=== PATIENT | male | born 1965 | race African-American/Black ===

== ENCOUNTER 2017-12-29 10:49 | Inpatient (IN) | payer OTHER ==
[2017-12-29 12:00] VITALS: BMI 20.7
--- NOTE | 2017-12-29 12:51 | HP ---
<Ning Choi - Last Filed: 12/29/17 14:17> CIWA Score - CIWA Score Nausea/Vomitin Muscle Tremors: 3 Anxiety: 3 Agitation: 0-Normal Activity Paroxysmal Sweats: 3 Orientation: 0-Oriented Tacttile Disturbances: 0-None Auditory Disturbances: 0-None Visual Disturbances: 0-None Headache: 0-None Present CIWA-Ar Total Score: 12 Admission [facility] - HPI Chief Complaint: Patient presents for ETOH withdrawal symptoms. Allergies/Adverse Reactions: Allergies Allergy/AdvReac Type Severity Reaction Status Date / Time fish derived Allergy Severe Swelling Verified 12/29/17 16:26 shellfish derived Allergy Severe Swelling Verified 12/29/17 16:26 No Known Drug Allergies Allergy Verified 12/29/17 11:51 seafood Allergy Severe Swelling Uncoded 12/29/17 11:51 History of Present Illness: Patient presents for detox of ETOH and nicotine dependence. Has attempted detox before over at [facility] in 2016. Last drink on 12/28/17 at 9 am. Last dose of smoked cocaine 12/27/17. Reports he has developed tremors related to his substance use. Has PMHX: of HTN and HIV+ . Reports that he in non-complaint with HIV medication. Denies suicidal or homicidal ideation or suicide attempts. Exam Limitations: No Limitations - Ebola screening Have you traveled outside of the country in the last 21 days: No Have you had contact with anyone from an Ebola affected area: No Have you been sick,other than usual withdrawal symptoms: No Do you have a fever: No - Review of Systems Constitutional: Changes in sleep (Patient reports difficulty falling asleep.), Unintentional Wgt. Loss (Patient lost 23 pounds in 2 months unintentionally.) EENT: reports: No Symptoms Reported Respiratory: reports: No Symptoms reported Cardiac: reports: No Symptoms Reported GI: reports: Poor Appetite, Poor Fluid Intake (Patient does not have adequate intake of food or fluids due to poor appetite) : reports: Burning Musculoskeletal: reports: No Symptoms Reported Integumentary: reports: No Symptoms Reported Neuro: reports: Tremors Endocrine: reports: Excessive Sweating, Unexplained Weight Loss Hematology: reports: No Symptoms Reported Psychiatric: reports: Anxious, Depressed Other Systems: Reviewed and Negative Patient History - Patient Medical History Hx Anemia: No Hx Asthma: No Hx Chronic Obstructive Pulmonary Disease (COPD): No Hx Cancer: No Hx Cardiac Disorders: No Hx Congestive Heart Failure: No Hx Hypertension: Yes Hx Hypercholesterolemia: No Hx Pacemaker: No HX Cerebrovascular Accident: No Hx Seizures: No Hx Dementia: No Hx Diabetes: No Hx Gastrointestinal Disorders: No Hx Liver Disease: No Hx Genitourinary Disorders: No Hx Sexually Transmitted Disorders: No Hx Renal Disease (ESRD): No Hx Thyroid Disease: No Hx Human Immunodeficiency Virus (HIV): Yes (since 1994. Atripla qd.) Hx Hepatitis C: No Hx Depression: Yes Hx Suicide Attempt: No (No suicidal ideation or attempts of suicide) Hx Bipolar Disorder: No Hx Schizophrenia: No - Patient Surgical History Past Surgical History: No Hx Neurologic Surgery: No Hx Cataract Extraction: No Hx Cardiac Surgery: No Hx Lung Surgery: No Hx Breast Surgery: No Hx Breast Biopsy: No Hx Abdominal Surgery: No Hx Appendectomy: No Hx Cholecystectomy: No Hx Genitourinary Surgery: No Hx Section: No Hx Orthopedic Surgery: No Anesthesia Reaction: No - PPD History Previous Implant?: Yes Documented Results: Positive w/o proof PPD to be Administered?: No - Reproductive History Patient is a Female of Child Bearing Age (11 -55 yrs old): No - Smoking Cessation Smoking history: Current every day smoker Have you smoked in the past 12 months: Yes Aproximately how many cigarettes per day: 10 Hx Chewing Tobacco Use: No Initiated information on smoking cessation: Yes 'Breaking Loose' booklet given: 12/29/17 - Substance & Tx. History Substance Use Type: Cocaine, Marijuana Hx Substance Use Treatment: Yes - Substances Abused Crack Route: Smoking Frequency: Daily Amount used: $50 Age of first use: 22 Date of Last Use: 12/27/17 Alcohol-vodka Route: Oral Frequency: Daily Amount used: 1 qt. Age of first use: 21 Date of Last Use: 12/28/17 Marijuana Route: Smoking Frequency: Daily Amount used: $5 Age of first use: 22 Date of Last Use: 12/27/17 crystal meth Route: Smoking Frequency: 1-2 times per week Amount used: $20 Age of first use: 52 Date of Last Use: 12/26/17 Family Disease History - Family Disease History Family History: Denies Admission Physical Exam [facility] - Vital Signs Vital Signs: Vital Signs - 24 hr 12/29/17 11:55 Temperature 97.4 F L Pulse Rate 80 Respiratory 20 Rate Blood Pressure 107/63 - Physical General Appearance: Yes: Appropriately Dressed, Mild Distress, Cachetic, Sweating HEENTM: Yes: EOMI, Hearing grossly Normal, Normal ENT Inspection, ROBERT Respiratory: Yes: Lungs Clear, Normal Breath Sounds, No Respiratory Distress, No Accessory Muscle Use Neck: Yes: No masses,lesions,Nodules, Supple Breast: Yes: Breast Exam Deferred Cardiology: Yes: Regular Rhythm, Regular Rate Abdominal: Yes: Normal Bowel Sounds, Non Tender, Flat Genitourinary: Yes: Burning (patient currently on Cipro for UTI) Back: Yes: Normal Inspection Musculoskeletal: Yes: full range of Motion, Gait Steady, Pelvis Stable Extremities: Yes: Normal Capillary Refill, Normal Inspection, Normal Range of Motion, Non-Tender Neurological: Yes: Within Normal Limits Integumentary: Yes: Warm, Moist Lymphatic: Yes: Within Normal Limits - Diagnostic (1) Alcohol dependence with uncomplicated withdrawal Current Visit: Yes Status: Acute (2) Weight loss Current Visit: Yes Status: Acute (3) Depressed affect Current Visit: Yes Status: Acute (4) Difficulty sleeping Current Visit: Yes Status: Acute (5) Cocaine dependence Current Visit: Yes Status: Acute QualifierTitle: Substance use status: uncomplicated Qualified Code(s): F14.20 - Cocaine dependence, uncomplicated (6) Human immunodeficiency virus infection Current Visit: Yes Status: Chronic Cleared for Admission [facility] - Detox or Rehab [facility] Level of Care: Medically Managed Detox Regimen/Protocol: Librium [facility] Breath Alcohol Content Breath Alcohol Content: 0 Urine Drug Screen - Results Drug Screen Negative: No Urine Drug Screen Results: THC-Marijuana, ARISTEO-Cocaine <Rose Roman - Last Filed: 12/31/17 15:02> Admission Physical Exam [facility] - Vital Signs Vital Signs: Vital Signs - 24 hr 12/30/17 12/30/17 12/31/17 18:06 23:19 08:24 Temperature 98.2 F 98.2 F 97.7 F Pulse Rate 79 76 74 Respiratory 18 17 17 Rate Blood Pressure 147/59 84/53 90/53 12/31/17 09:57 Temperature 98.2 F Pulse Rate 76 Respiratory 18 Rate Blood Pressure 115/70
[2017-12-29] MEDS ORDERED: P-EPHED 60MG/TRIPROLIDI 2.5MG TABLET PO PRN (14:06)
[2017-12-29] MEDS ORDERED: MAG HYDROX/AL HYDROX/SIMETH 30 ML UNIT-DOSE CUP PO PRN (14:06)
[2017-12-29] MEDS ORDERED: chlordiazePOXIDE HCL 25 MG CAPSULE PO PRN (14:06)
[2017-12-29] MEDS ORDERED: guaiFENesin/D-METHORPHAN HB 10 ML UNIT-DOSE CUPS PO PRN (14:06)
[2017-12-29] MEDS ORDERED: IBUPROFEN 400 MG TABLET (FP) PO PRN (14:06)
[2017-12-29] MEDS ORDERED: MAGNESIUM CITRATE 300 ML BOTTLE PO PRN (14:06)
[2017-12-29] MEDS ORDERED: ACETAMINOPHEN 325 MG TABLET (FP) PO PRN (14:06)
[2017-12-29] MEDS ORDERED: NICOTINE POLACRILEX 2 MG GUM BUC PRN (14:06)
[2017-12-29] MEDS ORDERED: LOPERAMIDE HCL 2 MG CAPSULE PO PRN (14:06)
[2017-12-29] MEDS ORDERED: MAGNESIUM HYDROX 2400MG/30ML ORAL SUSPENSION 30 ML CUP PO PRN (14:06)
[2017-12-29] MEDS ORDERED: chlordiazePOXIDE HCL 25 MG CAPSULE PO ONE (14:40)
--- NOTE | 2017-12-29 16:42 | CONSULT ---
[facility] Psychiatric Consult - Data Date of interview: 12/29/17 Admission source: [facility] Identifying data: Pt. is a 52 year old single male, without kids, unemployed, and receiving SSI. This is patient's first admission to detox but has been admitted to rehab at [facility] in the past. Pt. admitted to for Substance Abuse History: Following information confirmed with Mr. Mccord: Smoking Cessation. Smoking history: Current every day smoker. Have you smoked in the past 12 months: Yes. Aproximately how many cigarettes per day: 10. Hx Chewing Tobacco Use: No. Initiated information on smoking cessation: Yes. ' Breaking Loose' booklet given: 12/29/17. - Substance & Tx. History. Substance Use Type: Cocaine, Marijuana. Hx Substance Use Treatment: Yes. - Substances Abused. Crack. Route: Smoking. Frequency: Daily. Amount used: $50. Age of first use: 22. Date of Last Use: 12/27/17. Alcohol-vodka. Route: Oral. Frequency: Daily. Amount used: 1 qt. Age of first use: 21. Date of Last Use : 12/28/17. Marijuana. Route: Smoking. Frequency: Daily. Amount used: $ 5. Age of first use: 22. Date of Last Use: 12/27/17. crystal meth. Route : Smoking. Frequency: 1-2 times per week. Amount used: $20. Age of first use : 52. Date of Last Use: 12/26/17 Medical History: hypertension, HIV Psychiatric History: Patient's first encounter with a psychiatrist was at the age of 15 after endorsing suicidal ideation. Since then, patient reports multiple psychiatric hospitalizations. States he was most recently hospitalized at [facility] last month. Diagnosis of MDD. States he is prescribed Seroquel 100mg qhs +Mirtzapine 45 qhs. Reports compliance to medication regime. Pt. reports three suicide attempt. 3 years ago patient cut wrist (no medical attention needed), 4 years ago patient attempted to hang self in [facility] but states the branch broke, and approximately 9 years ago patient overdosed on medications which resulted in patient needing medical attention. Pt. currently denies suicidal and homicidal ideation. Physical/Sexual Abuse/Trauma History: denies. Mental Status Exam - Mental Status Exam Alert and Oriented to: Time, Place, Person Cognitive Function: Good Patient Appearance: Unkempt Mood: Hopeful, Euthymic Affect: Appropriate Patient Behavior: Cooperative Speech Pattern: Clear, Appropriate Voice Loudness: Normal Thought Process: Goal Oriented Thought Disorder: Not Present Hallucinations: Denies Suicidal Ideation: Denies Homicidal Ideation: Denies Insight/Judgement: Poor Sleep: Poorly Appetite: Fair Muscle strength/Tone: Normal Gait/Station: Normal Psychiatric Findings - Problem List ([place] 1, 2,3) (1) Alcohol dependence with uncomplicated withdrawal Current Visit: Yes Status: Acute (2) Cocaine dependence Current Visit: Yes Status: Acute Qualifiers: Substance use status: uncomplicated Qualified Code(s): F14.20 - Cocaine dependence, uncomplicated (3) MDD (major depressive disorder) Current Visit: Yes Status: Chronic Comment: Historical diagnosis. (4) Insomnia Current Visit: Yes Status: Acute - Initial Treatment Plan Initial Treatment Plan: Psychoeducation provided. Detoxification provided. Seroquel 100mg qhs +mirtzapine 15mg qhs (reduce dosage). Benefits and side effects discussed. Verbal consent given. Will continue to monitor.
[2017-12-29] MEDS: MEGESTROL ACETATE 400 MG/10 ML UNIT DOSE CUP PO SCH (17:58)
[2017-12-29] MEDS: CIPROFLOXACIN 250 MG TABLET (RESTRICTED TO ID) PO SCH ×2 (17:58→23:17)
[2017-12-29] MEDS: chlordiazePOXIDE HCL 25 MG CAPSULE PO SCH ×2 (17:58→23:16)
[2017-12-29] MEDS: QUEtiapine FUMARATE 100 MG TABLET (FP) PO SCH (23:16)
[2017-12-29] MEDS: MIRTAZAPINE 15 MG TABLET (FP) PO SCH (23:16)
[2017-12-29] MEDS: THIAMINE HCL 100 MG TABLET (FP) PO SCH (23:16)
[2017-12-30] MEDS: chlordiazePOXIDE HCL 25 MG CAPSULE PO SCH ×4 (05:49→22:54)
[2017-12-30] MEDS: MEGESTROL ACETATE 400 MG/10 ML UNIT DOSE CUP PO SCH ×2 (07:05→18:15)
[2017-12-30 10:00] LABS: HEMATOCRIT 37.5 % (35.4-49); HEMOGLOBIN 12.5 GM/dL (11.7-16.9); MCHC 33.2 g/dl (32.0-35.9); MEAN CELL VOLUME 90.4 fl (80-96); MEAN PLT VOLUME 10.3 fl (7.5-11.1); PLATELET COUNT 348 K/MM3 (134-434); RBC 4.15 M/mm3 (4.00-5.60); RDW 14.2 % (11.9-15.9); WHITE BLOOD COUNT 4.8 K/mm3 (4.0-10.0)
[2017-12-30] MEDS: CIPROFLOXACIN 250 MG TABLET (RESTRICTED TO ID) PO SCH ×2 (10:23→22:54)
[2017-12-30] MEDS: PRENATAL VITAMINS W/ FOLIC ACID TABLET (FP) PO SCH (10:23)
[2017-12-30] MEDS: NICOTINE 14 MG/24 HOURS TOPICAL PATCH TD SCH (10:23)
[2017-12-30 10:24] LABS: URINE APPEARANCE TURBID; URINE BILIRUBIN NEGATIVE (NEGATIVE); URINE COLOR AMBER; URINE GLUCOSE (UA) NEGATIVE (NEGATIVE); URINE KETONE 1+ (NEGATIVE); URINE LEUK ESTERASE NEGATIVE (NEGATIVE); URINE NITRITE NEGATIVE (NEGATIVE)
[2017-12-30 10:25] LABS: URINE PROTEIN 1+ (NEGATIVE)
[2017-12-30 10:27] LABS: CHLORIDE 104 mmol/L (98-107); POTASSIUM 3.6 mmol/L (3.5-5.1); SODIUM 139 mmol/L (136-145)
[2017-12-30 10:34] LABS: ALBUMIN 3.5 g/dl (3.4-5.0); ALK PHOS 63 U/L (45-117); ANION GAP 7 (8-16); BILIRUBIN,TOTAL 0.9 mg/dL (0.2-1.0); BLOOD UREA NITROGEN 15 mg/dL (7-18); CALCIUM 8.9 mg/dL (8.5-10.1); CO2 28 mmol/L (21-32); CREATININE 1.3 mg/dL (0.7-1.3); GLUCOSE,RANDOM 59 mg/dL (74-106); SGOT/AST 22 U/L (15-37); SGPT/ALT 14 U/L (12-78); TOT PROT 7.4 g/dl (6.4-8.2)
[2017-12-30 10:49] LABS: EPI CELLS RARE /HPF (FEW); URINE BACTERIA FEW /hpf (NONE SEEN); URINE HYALINE CAST 2 /lpf; URINE MUCUS FEW
[2017-12-30] MEDS: amLODIPine BESYLATE 10 MG TABLET (FP) PO SCH (12:38)
--- NOTE | 2017-12-30 14:49 | PN ---
[facility] CIWA - CIWA Score Nausea/Vomitin Muscle Tremors: 3 Anxiety: 3 Agitation: 3 Paroxysmal Sweats: 1-Minimal Palms Moist Orientation: 0-Oriented Tacttile Disturbances: 1-Very Mild Itch/Numbness Auditory Disturbances: 1-Very Mild Visual Disturbances: 0-None Headache: 2-Mild CIWA-Ar Total Score: 17 BHS Progress Note (SOAP) Subjective: ALERT,IRRITABLE,ANXIOUS,INTERRUPTED SLEEP,TREMOR Objective: 12/30/17 14:46 Vital Signs Temperature 98.1 F 12/30/17 14:00 Pulse Rate 79 12/30/17 14:00 Respiratory Rate 20 12/30/17 14:00 Blood Pressure 117/68 12/30/17 14:00 O2 Sat by Pulse Oximetry (%) EKG NSR,INVERTED T IN V3 TO V6 PROLONG QT 438/462 NO CHEST PAIN,NO SOB,NO DIZZINESS Laboratory Last Values WBC 4.8 K/mm3 (4.0-10.0) 12/30/17 06:00 RBC 4.15 M/mm3 (4.00-5.60) 12/30/17 06:00 Hgb 12.5 GM/dL (11.7-16.9) D 12/30/17 06:00 Hct 37.5 % (35.4-49) 12/30/17 06:00 MCV 90.4 fl (80-96) 12/30/17 06:00 MCH 30.0 pg (25.7-33.7) 12/30/17 06:00 MCHC 33.2 g/dl (32.0-35.9) 12/30/17 06:00 RDW 14.2 % (11.9-15.9) 12/30/17 06:00 Plt Count 348 K/MM3 (134-434) D 12/30/17 06:00 MPV 10.3 fl (7.5-11.1) D 12/30/17 06:00 Sodium 139 mmol/L (136-145) 12/30/17 06:00 Potassium 3.6 mmol/L (3.5-5.1) 12/30/17 06:00 Chloride 104 mmol/L (98-107) 12/30/17 06:00 Carbon Dioxide 28 mmol/L (21-32) 12/30/17 06:00 Anion Gap 7 (8-16) L 12/30/17 06:00 BUN 15 mg/dL (7-18) D 12/30/17 06:00 Creatinine 1.3 mg/dL (0.7-1.3) 12/30/17 06:00 Creat Clearance w eGFR 57.75 (>60) 12/30/17 06:00 Random Glucose 59 mg/dL (74-106) L D 12/30/17 06:00 Calcium 8.9 mg/dL (8.5-10.1) 12/30/17 06:00 Total Bilirubin 0.9 mg/dL (0.2-1.0) D 12/30/17 06:00 AST 22 U/L (15-37) D 12/30/17 06:00 ALT 14 U/L (12-78) D 12/30/17 06:00 Alkaline Phosphatase 63 U/L (45-117) 12/30/17 06:00 Total Protein 7.4 g/dl (6.4-8.2) 12/30/17 06:00 Albumin 3.5 g/dl (3.4-5.0) 12/30/17 06:00 Urine Color Jaida 12/30/17 08:50 Urine Appearance Turbid 12/30/17 08:50 Urine pH 5.0 (5.0-8.0) D 12/30/17 08:50 Ur Specific [place] 1.031 (1.001-1.035) 12/30/17 08:50 Urine Protein 1+ (NEGATIVE) H 12/30/17 08:50 Urine Glucose (UA) Negative (NEGATIVE) 12/30/17 08:50 Urine Ketones 1+ (NEGATIVE) H 12/30/17 08:50 Urine Blood Negative (NEGATIVE) 12/30/17 08:50 Urine Nitrite Negative (NEGATIVE) 12/30/17 08:50 Urine Bilirubin Negative (NEGATIVE) 12/30/17 08:50 Urine Urobilinogen 2.0 mg/dL (0.2-1.0) 12/30/17 08:50 Ur Leukocyte Esterase Negative (NEGATIVE) 12/30/17 08:50 Urine WBC (Auto) 4 /hpf (3-5) 12/30/17 08:50 Urine RBC (Auto) 1 /hpf (0-3) 12/30/17 08:50 Ur Epithelial Cells Rare /HPF (FEW) 12/30/17 08:50 Urine Bacteria Few /hpf (NONE SEEN) 12/30/17 08:50 Hyaline Casts 2 /lpf 12/30/17 08:50 Urine Mucus Few 12/30/17 08:50 RPR Titer Nonreactive (NONREACTIVE) 12/30/17 06:00 Assessment: 12/30/17 14:48 WITHDRAWAL SYMPTOM Plan: CONTINUE DETOX,BGM IN AM
--- NOTE | 2017-12-30 18:46 | EKG ---
Test Reason : Blood Pressure : / mmHG Vent. Rate : 067 BPM Atrial Rate : 067 BPM P-R Int : 154 ms QRS Dur : 082 ms QT Int : 438 ms P-R-T Axes : 063 077 028 degrees QTc Int : 462 ms NORMAL SINUS RHYTHM T WAVE ABNORMALITY, CONSIDER ANTERIOR ISCHEMIA PROLONGED QT ABNORMAL ECG NO PREVIOUS ECGS AVAILABLE Confirmed by ANDREW HOFFMAN MD ([id number]) on 12/30/2017 6:46:20 PM Referred By: Confirmed By:ANDREW HOFFMAN MD
[2017-12-30] MEDS: THIAMINE HCL 100 MG TABLET (FP) PO SCH (22:54)
[2017-12-30] MEDS: MIRTAZAPINE 15 MG TABLET (FP) PO SCH (22:54)
[2017-12-30] MEDS: QUEtiapine FUMARATE 100 MG TABLET (FP) PO SCH (22:54)
[2017-12-31] MEDS: MEGESTROL ACETATE 400 MG/10 ML UNIT DOSE CUP PO SCH ×2 (06:46→17:04)
[2017-12-31] MEDS: chlordiazePOXIDE HCL 25 MG CAPSULE PO SCH ×2 (06:46→10:18)
[2017-12-31] MEDS: NICOTINE 14 MG/24 HOURS TOPICAL PATCH TD SCH (10:17)
[2017-12-31] MEDS: PRENATAL VITAMINS W/ FOLIC ACID TABLET (FP) PO SCH (10:17)
[2017-12-31] MEDS: amLODIPine BESYLATE 10 MG TABLET (FP) PO SCH (10:17)
--- NOTE | 2017-12-31 15:17 | PN ---
[facility] CIWA - CIWA Score Nausea/Vomitin-Mild Nausea/No Vomiting Muscle Tremors: 4-Moderate,w/Arms Extend Anxiety: 4-Mod. Anxious/Guarded Agitation: 3 Paroxysmal Sweats: 1-Minimal Palms Moist Orientation: 0-Oriented Tacttile Disturbances: 1-Very Mild Itch/Numbness Auditory Disturbances: 0-None Visual Disturbances: 0-None Headache: 0-None Present CIWA-Ar Total Score: 14 BHS Progress Note (SOAP) Subjective: sweat tremor restlessness anxiety irritable mild gi distress Objective: 12/31/17 15:16 Vital Signs Temperature 98.8 F 12/31/17 15:11 Pulse Rate 85 12/31/17 15:11 Respiratory Rate 16 12/31/17 15:11 Blood Pressure 107/60 12/31/17 15:11 O2 Sat by Pulse Oximetry (%) Laboratory Last Values WBC 4.8 K/mm3 (4.0-10.0) 12/30/17 06:00 RBC 4.15 M/mm3 (4.00-5.60) 12/30/17 06:00 Hgb 12.5 GM/dL (11.7-16.9) D 12/30/17 06:00 Hct 37.5 % (35.4-49) 12/30/17 06:00 MCV 90.4 fl (80-96) 12/30/17 06:00 MCH 30.0 pg (25.7-33.7) 12/30/17 06:00 MCHC 33.2 g/dl (32.0-35.9) 12/30/17 06:00 RDW 14.2 % (11.9-15.9) 12/30/17 06:00 Plt Count 348 K/MM3 (134-434) D 12/30/17 06:00 MPV 10.3 fl (7.5-11.1) D 12/30/17 06:00 Sodium 139 mmol/L (136-145) 12/30/17 06:00 Potassium 3.6 mmol/L (3.5-5.1) 12/30/17 06:00 Chloride 104 mmol/L (98-107) 12/30/17 06:00 Carbon Dioxide 28 mmol/L (21-32) 12/30/17 06:00 Anion Gap 7 (8-16) L 12/30/17 06:00 BUN 15 mg/dL (7-18) D 12/30/17 06:00 Creatinine 1.3 mg/dL (0.7-1.3) 12/30/17 06:00 Creat Clearance w eGFR 57.75 (>60) 12/30/17 06:00 POC Glucometer 96 UNITS (80-120) 12/31/17 07:58 Random Glucose 59 mg/dL (74-106) L D 12/30/17 06:00 Calcium 8.9 mg/dL (8.5-10.1) 12/30/17 06:00 Total Bilirubin 0.9 mg/dL (0.2-1.0) D 12/30/17 06:00 AST 22 U/L (15-37) D 12/30/17 06:00 ALT 14 U/L (12-78) D 12/30/17 06:00 Alkaline Phosphatase 63 U/L (45-117) 12/30/17 06:00 Total Protein 7.4 g/dl (6.4-8.2) 12/30/17 06:00 Albumin 3.5 g/dl (3.4-5.0) 12/30/17 06:00 Urine Color Jaida 12/30/17 08:50 Urine Appearance Turbid 12/30/17 08:50 Urine pH 5.0 (5.0-8.0) D 12/30/17 08:50 Ur Specific [place] 1.031 (1.001-1.035) 12/30/17 08:50 Urine Protein 1+ (NEGATIVE) H 12/30/17 08:50 Urine Glucose (UA) Negative (NEGATIVE) 12/30/17 08:50 Urine Ketones 1+ (NEGATIVE) H 12/30/17 08:50 Urine Blood Negative (NEGATIVE) 12/30/17 08:50 Urine Nitrite Negative (NEGATIVE) 12/30/17 08:50 Urine Bilirubin Negative (NEGATIVE) 12/30/17 08:50 Urine Urobilinogen 2.0 mg/dL (0.2-1.0) 12/30/17 08:50 Ur Leukocyte Esterase Negative (NEGATIVE) 12/30/17 08:50 Urine WBC (Auto) 4 /hpf (3-5) 12/30/17 08:50 Urine RBC (Auto) 1 /hpf (0-3) 12/30/17 08:50 Ur Epithelial Cells Rare /HPF (FEW) 12/30/17 08:50 Urine Bacteria Few /hpf (NONE SEEN) 12/30/17 08:50 Hyaline Casts 2 /lpf 12/30/17 08:50 Urine Mucus Few 12/30/17 08:50 RPR Titer Nonreactive (NONREACTIVE) 12/30/17 06:00 Hep C Ab Diagnostic <0.1 s/co ratio (0.0-0.9) 12/30/17 06:00 lab noted Assessment: 12/31/17 15:17 withdrawal sx Plan: continue detox
[2017-12-31] MEDS: chlordiazePOXIDE 5 MG CAPSULE PO SCH ×2 (17:04→22:12)
[2017-12-31] MEDS: MIRTAZAPINE 15 MG TABLET (FP) PO SCH (22:13)
[2017-12-31] MEDS: THIAMINE HCL 100 MG TABLET (FP) PO SCH (22:13)
[2017-12-31] MEDS: QUEtiapine FUMARATE 100 MG TABLET (FP) PO SCH (22:13)
[2018-01-01] MEDS: chlordiazePOXIDE 5 MG CAPSULE PO SCH ×2 (05:51→10:20)
[2018-01-01] MEDS: MEGESTROL ACETATE 400 MG/10 ML UNIT DOSE CUP PO SCH ×2 (07:51→18:45)
[2018-01-01] MEDS: NICOTINE 14 MG/24 HOURS TOPICAL PATCH TD SCH (10:20)
[2018-01-01] MEDS: amLODIPine BESYLATE 10 MG TABLET (FP) PO SCH (10:20)
[2018-01-01] MEDS: PRENATAL VITAMINS W/ FOLIC ACID TABLET (FP) PO SCH (10:20)
--- NOTE | 2018-01-01 11:04 | PN ---
BHS Progress Note (SOAP) Subjective: patient is alert oriented x 3 steady gait mild sweat no tremor Objective: 01/01/18 11:03 Vital Signs Temperature 97.9 F 01/01/18 07:06 Pulse Rate 71 01/01/18 07:06 Respiratory Rate 19 01/01/18 07:06 Blood Pressure 107/67 01/01/18 07:06 O2 Sat by Pulse Oximetry (%) Laboratory Last Values WBC 4.8 K/mm3 (4.0-10.0) 12/30/17 06:00 RBC 4.15 M/mm3 (4.00-5.60) 12/30/17 06:00 Hgb 12.5 GM/dL (11.7-16.9) D 12/30/17 06:00 Hct 37.5 % (35.4-49) 12/30/17 06:00 MCV 90.4 fl (80-96) 12/30/17 06:00 MCH 30.0 pg (25.7-33.7) 12/30/17 06:00 MCHC 33.2 g/dl (32.0-35.9) 12/30/17 06:00 RDW 14.2 % (11.9-15.9) 12/30/17 06:00 Plt Count 348 K/MM3 (134-434) D 12/30/17 06:00 MPV 10.3 fl (7.5-11.1) D 12/30/17 06:00 Sodium 139 mmol/L (136-145) 12/30/17 06:00 Potassium 3.6 mmol/L (3.5-5.1) 12/30/17 06:00 Chloride 104 mmol/L (98-107) 12/30/17 06:00 Carbon Dioxide 28 mmol/L (21-32) 12/30/17 06:00 Anion Gap 7 (8-16) L 12/30/17 06:00 BUN 15 mg/dL (7-18) D 12/30/17 06:00 Creatinine 1.3 mg/dL (0.7-1.3) 12/30/17 06:00 Creat Clearance w eGFR 57.75 (>60) 12/30/17 06:00 POC Glucometer 96 UNITS (80-120) 12/31/17 07:58 Random Glucose 59 mg/dL (74-106) L D 12/30/17 06:00 Calcium 8.9 mg/dL (8.5-10.1) 12/30/17 06:00 Total Bilirubin 0.9 mg/dL (0.2-1.0) D 12/30/17 06:00 AST 22 U/L (15-37) D 12/30/17 06:00 ALT 14 U/L (12-78) D 12/30/17 06:00 Alkaline Phosphatase 63 U/L (45-117) 12/30/17 06:00 Total Protein 7.4 g/dl (6.4-8.2) 12/30/17 06:00 Albumin 3.5 g/dl (3.4-5.0) 12/30/17 06:00 Urine Color Jaida 12/30/17 08:50 Urine Appearance Turbid 12/30/17 08:50 Urine pH 5.0 (5.0-8.0) D 12/30/17 08:50 Ur Specific [place] 1.031 (1.001-1.035) 12/30/17 08:50 Urine Protein 1+ (NEGATIVE) H 12/30/17 08:50 Urine Glucose (UA) Negative (NEGATIVE) 12/30/17 08:50 Urine Ketones 1+ (NEGATIVE) H 12/30/17 08:50 Urine Blood Negative (NEGATIVE) 12/30/17 08:50 Urine Nitrite Negative (NEGATIVE) 12/30/17 08:50 Urine Bilirubin Negative (NEGATIVE) 12/30/17 08:50 Urine Urobilinogen 2.0 mg/dL (0.2-1.0) 12/30/17 08:50 Ur Leukocyte Esterase Negative (NEGATIVE) 12/30/17 08:50 Urine WBC (Auto) 4 /hpf (3-5) 12/30/17 08:50 Urine RBC (Auto) 1 /hpf (0-3) 12/30/17 08:50 Ur Epithelial Cells Rare /HPF (FEW) 12/30/17 08:50 Urine Bacteria Few /hpf (NONE SEEN) 12/30/17 08:50 Hyaline Casts 2 /lpf 12/30/17 08:50 Urine Mucus Few 12/30/17 08:50 RPR Titer Nonreactive (NONREACTIVE) 12/30/17 06:00 Hep C Ab Diagnostic <0.1 s/co ratio (0.0-0.9) 12/30/17 06:00 lab noted Assessment: 01/01/18 11:03 mild withdrawal sx Plan: medically supervised detox
[2018-01-01] MEDS: chlordiazePOXIDE HCL 10 MG CAPSULE PO SCH ×2 (18:44→22:24)
[2018-01-01] MEDS: THIAMINE HCL 100 MG TABLET (FP) PO SCH (22:24)
[2018-01-01] MEDS: MIRTAZAPINE 15 MG TABLET (FP) PO SCH (22:24)
[2018-01-01] MEDS: QUEtiapine FUMARATE 100 MG TABLET (FP) PO SCH (22:24)
[2018-01-02] MEDS: chlordiazePOXIDE HCL 10 MG CAPSULE PO SCH ×2 (05:16→10:23)
[2018-01-02] MEDS: MEGESTROL ACETATE 400 MG/10 ML UNIT DOSE CUP PO SCH ×2 (06:37→17:01)
[2018-01-02] MEDS: NICOTINE 14 MG/24 HOURS TOPICAL PATCH TD SCH (10:21)
[2018-01-02] MEDS: amLODIPine BESYLATE 10 MG TABLET (FP) PO SCH (10:21)
[2018-01-02] MEDS: PRENATAL VITAMINS W/ FOLIC ACID TABLET (FP) PO SCH (10:21)
--- NOTE | 2018-01-02 10:39 | DS ---
[facility] Detox Discharge Summary Admission Date: 12/29/17 Discharge Date: 01/02/18 - History Present History: Alcohol Dependence - Physical Exam Results Vital Signs: Vital Signs Temperature 98.2 F 01/02/18 09:46 Pulse Rate 87 01/02/18 09:46 Respiratory Rate 18 01/02/18 09:46 Blood Pressure 123/79 01/02/18 09:46 O2 Sat by Pulse Oximetry (%) Pertinent Admission Physical Exam Findings: withdrawal sx Vital Signs Temperature 98.2 F 01/02/18 09:46 Pulse Rate 87 01/02/18 09:46 Respiratory Rate 18 01/02/18 09:46 Blood Pressure 123/79 01/02/18 09:46 O2 Sat by Pulse Oximetry (%) Laboratory Last Values WBC 4.8 K/mm3 (4.0-10.0) 12/30/17 06:00 RBC 4.15 M/mm3 (4.00-5.60) 12/30/17 06:00 Hgb 12.5 GM/dL (11.7-16.9) D 12/30/17 06:00 Hct 37.5 % (35.4-49) 12/30/17 06:00 MCV 90.4 fl (80-96) 12/30/17 06:00 MCH 30.0 pg (25.7-33.7) 12/30/17 06:00 MCHC 33.2 g/dl (32.0-35.9) 12/30/17 06:00 RDW 14.2 % (11.9-15.9) 12/30/17 06:00 Plt Count 348 K/MM3 (134-434) D 12/30/17 06:00 MPV 10.3 fl (7.5-11.1) D 12/30/17 06:00 Sodium 139 mmol/L (136-145) 12/30/17 06:00 Potassium 3.6 mmol/L (3.5-5.1) 12/30/17 06:00 Chloride 104 mmol/L (98-107) 12/30/17 06:00 Carbon Dioxide 28 mmol/L (21-32) 12/30/17 06:00 Anion Gap 7 (8-16) L 12/30/17 06:00 BUN 15 mg/dL (7-18) D 12/30/17 06:00 Creatinine 1.3 mg/dL (0.7-1.3) 12/30/17 06:00 Creat Clearance w eGFR 57.75 (>60) 12/30/17 06:00 POC Glucometer 96 UNITS (80-120) 12/31/17 07:58 Random Glucose 59 mg/dL (74-106) L D 12/30/17 06:00 Calcium 8.9 mg/dL (8.5-10.1) 12/30/17 06:00 Total Bilirubin 0.9 mg/dL (0.2-1.0) D 12/30/17 06:00 AST 22 U/L (15-37) D 12/30/17 06:00 ALT 14 U/L (12-78) D 12/30/17 06:00 Alkaline Phosphatase 63 U/L (45-117) 12/30/17 06:00 Total Protein 7.4 g/dl (6.4-8.2) 12/30/17 06:00 Albumin 3.5 g/dl (3.4-5.0) 12/30/17 06:00 Urine Color Jaida 12/30/17 08:50 Urine Appearance Turbid 12/30/17 08:50 Urine pH 5.0 (5.0-8.0) D 12/30/17 08:50 Ur Specific [place] 1.031 (1.001-1.035) 12/30/17 08:50 Urine Protein 1+ (NEGATIVE) H 12/30/17 08:50 Urine Glucose (UA) Negative (NEGATIVE) 12/30/17 08:50 Urine Ketones 1+ (NEGATIVE) H 12/30/17 08:50 Urine Blood Negative (NEGATIVE) 12/30/17 08:50 Urine Nitrite Negative (NEGATIVE) 12/30/17 08:50 Urine Bilirubin Negative (NEGATIVE) 12/30/17 08:50 Urine Urobilinogen 2.0 mg/dL (0.2-1.0) 12/30/17 08:50 Ur Leukocyte Esterase Negative (NEGATIVE) 12/30/17 08:50 Urine WBC (Auto) 4 /hpf (3-5) 12/30/17 08:50 Urine RBC (Auto) 1 /hpf (0-3) 12/30/17 08:50 Ur Epithelial Cells Rare /HPF (FEW) 12/30/17 08:50 Urine Bacteria Few /hpf (NONE SEEN) 12/30/17 08:50 Hyaline Casts 2 /lpf 12/30/17 08:50 Urine Mucus Few 12/30/17 08:50 RPR Titer Nonreactive (NONREACTIVE) 12/30/17 06:00 Hep C Ab Diagnostic <0.1 s/co ratio (0.0-0.9) 12/30/17 06:00 lab noted - Treatment Hospital Course: Detox Protocol Followed, Detoxed Safely, Responded well, Discharged Condition Good, Rehab Referral Accepted Patient has Accepted a Rehab Referral to: [facility] - Medication Discharge Medications: Ambulatory Orders Mirtazapine [Remeron -] 45 mg PO HS #90 tablet 07/18/16 Amlodipine Besylate [Norvasc -] 10 mg PO DAILY 12/29/17 Ciprofloxacin [Cipro -] 250 mg PO Q12H 12/29/17 Elviteg/Cob/Emtri/Tenof Alafen [Genvoya Tablet] 1 each PO DAILY 12/29/17 Megestrol Acetate Oral Susp [Megace Oral Suspension -] 4 tsp PO DAILY 12/29/17 Quetiapine Fumarate [Seroquel] 100 tab PO HS 12/29/17 - Diagnosis (1) Alcohol dependence with uncomplicated withdrawal Current Visit: Yes Status: Acute (2) Weight loss Current Visit: Yes Status: Acute (3) Human immunodeficiency virus infection Current Visit: Yes Status: Chronic (4) Hypertension Current Visit: Yes Status: Chronic Qualifiers: Hypertension type: essential hypertension Qualified Code(s): I10 - Essential (primary) hypertension - AMA Did Patient Leave Against Medical Advice: No
--- NOTE | 2018-01-02 12:43 | HP ---
[facility] Rehab Assess/Revision - Admission History Admitted to Rehab from: [facility] [place] Date of Admission to Rehab: 01/02/18 - Vital signs Vital Signs: Vital Signs Period Temp Pulse Resp BP Sys/Contreras Pulse Ox Last 24 Hr 98.1 F-98.8 F 75-87 16-18 109-131/61-82 - Findings Detox History & Physical reviewed: Yes Concur with findings: Yes Comments/Additional Findings: transferred from detox to rehab admission as per protocol Inpatient Rehab Admission - Initial Determination Are CD services needed?: Yes Free of communicable disease: Yes Not in need of hospitalization: Yes - Rehab Admission Criteria Previous failed treatment: Yes Poor recovery environment: Yes Comorbidities: Yes Lacks judgement: No Patient is meeting Inpatient Rehab admission criteria:: Yes
--- NOTE | 2018-01-02 15:09 | HP ---
Psychiatrist Admission - Data Date of interview: 01/02/18 Admission source: Identifying data: This is the first inpatient rehabilitation admission for this 52 year old AA male who is a single, domiicled unemployed and supported on SSI benefits. Medical History: HIV+ since 1994, HTN, withdrawal related seizures and neuropathy. Smokes cigarettes 10 a day Psychiatric History: Patient denies history of psychiatric hospitalizations, he is poor historian, irritable and angry, he reports he takes Seroquel for sleep prescribed by his PCP. According to the psychiatric consult at he has a multiple psychiatric hospitalizations and 3 suicidal attempts and on seroquel 100 mg po hs and Remeron 15 mg hs. Physical/Sexual Abuse/Trauma History: Denies Vital Signs: Vital Signs - 24 hr 01/01/18 01/01/18 01/01/18 15:26 19:16 22:33 Temperature 98.2 F 98.8 F 98.4 F Pulse Rate 82 81 80 Respiratory 18 18 18 Rate Blood Pressure 124/82 118/67 131/82 01/02/18 01/02/18 01/02/18 00:30 03:30 06:00 Temperature 98.1 F Pulse Rate 75 Respiratory 18 18 16 Rate Blood Pressure 109/61 01/02/18 01/02/18 09:46 13:13 Temperature 98.2 F 98.8 F Pulse Rate 87 88 Respiratory 18 18 Rate Blood Pressure 123/79 115/75 Allergies/Adverse Reactions: Allergies Allergy/AdvReac Type Severity Reaction Status Date / Time fish derived Allergy Severe Swelling Verified 01/02/18 13:03 shellfish derived Allergy Severe Swelling Verified 01/02/18 13:03 No Known Drug Allergies Allergy Verified 01/02/18 13:03 seafood Allergy Severe Swelling Uncoded 01/02/18 13:03 Date of last physical exam: 12/29/17 Concur with the findings of this exam: Yes - Substance Abuse/Tx History Hx Alcohol Use: Yes (vodka daily 1qt) Hx Substance Use: Yes (crystal meth 1-2 times weekly $20) Substance Use Type: Cocaine (crack $50), Marijuana (daily $5) Mental Status Exam - Mental Status Exam Alert and Oriented to: Place, Person Cognitive Function: Grossly Intact Patient Appearance: Well Groomed Mood: Angry, Hostile, Irritable Affect: Mood Congruent Patient Behavior: Uncooperative, Guarded Speech Pattern: Clear Voice Loudness: Normal Thought Process: Goal Oriented Thought Disorder: Not Present Hallucinations: Denies Suicidal Ideation: Denies Homicidal Ideation: Denies Insight/Judgement: Fair Sleep: Fair Appetite: Fair Muscle strength/Tone: Normal Gait/Station: Normal Psychiatric Findings - Problem List ([place] 1, 2,3) (1) Cannabis dependence Current Visit: Yes Status: Acute (2) Methamphetamine abuse Current Visit: Yes Status: Acute (3) Cocaine dependence Current Visit: Yes Status: Acute Qualifiers: Substance use status: uncomplicated Qualified Code(s): F14.20 - Cocaine dependence, uncomplicated (4) MDD (major depressive disorder) Current Visit: Yes Status: Chronic Comment: Historical diagnosis. (5) Alcohol dependence Current Visit: No Status: Chronic - Initial Treatment Plan Initial Treatment Plan: will continue Remeron and Seroquel, monitor progress.
--- NOTE | 2018-01-02 17:59 | PN ---
[facility] Progress Note Note: Patient c/o of chest pain with RUBÉN James RN, reports was notified by another patient that the member was experiencing SOB and chest pain. As per patient this is the second time this has occur today . Patient anxious and restless, c/o of chest pain that comes and goes. BP 132/87 P78 R18 T98.7 Laboratory Last Values WBC 4.8 K/mm3 (4.0-10.0) 12/30/17 06:00 RBC 4.15 M/mm3 (4.00-5.60) 12/30/17 06:00 Hgb 12.5 GM/dL (11.7-16.9) D 12/30/17 06:00 Hct 37.5 % (35.4-49) 12/30/17 06:00 MCV 90.4 fl (80-96) 12/30/17 06:00 MCH 30.0 pg (25.7-33.7) 12/30/17 06:00 MCHC 33.2 g/dl (32.0-35.9) 12/30/17 06:00 RDW 14.2 % (11.9-15.9) 12/30/17 06:00 Plt Count 348 K/MM3 (134-434) D 12/30/17 06:00 MPV 10.3 fl (7.5-11.1) D 12/30/17 06:00 Sodium 139 mmol/L (136-145) 12/30/17 06:00 Potassium 3.6 mmol/L (3.5-5.1) 12/30/17 06:00 Chloride 104 mmol/L (98-107) 12/30/17 06:00 Carbon Dioxide 28 mmol/L (21-32) 12/30/17 06:00 Anion Gap 7 (8-16) L 12/30/17 06:00 BUN 15 mg/dL (7-18) D 12/30/17 06:00 Creatinine 1.3 mg/dL (0.7-1.3) 12/30/17 06:00 Creat Clearance w eGFR 57.75 (>60) 12/30/17 06:00 POC Glucometer 96 UNITS (80-120) 12/31/17 07:58 Random Glucose 59 mg/dL (74-106) L D 12/30/17 06:00 Calcium 8.9 mg/dL (8.5-10.1) 12/30/17 06:00 Total Bilirubin 0.9 mg/dL (0.2-1.0) D 12/30/17 06:00 AST 22 U/L (15-37) D 12/30/17 06:00 ALT 14 U/L (12-78) D 12/30/17 06:00 Alkaline Phosphatase 63 U/L (45-117) 12/30/17 06:00 Total Protein 7.4 g/dl (6.4-8.2) 12/30/17 06:00 Albumin 3.5 g/dl (3.4-5.0) 12/30/17 06:00 Urine Color Jaida 12/30/17 08:50 Urine Appearance Turbid 12/30/17 08:50 Urine pH 5.0 (5.0-8.0) D 12/30/17 08:50 Ur Specific [place] 1.031 (1.001-1.035) 12/30/17 08:50 Urine Protein 1+ (NEGATIVE) H 12/30/17 08:50 Urine Glucose (UA) Negative (NEGATIVE) 12/30/17 08:50 Urine Ketones 1+ (NEGATIVE) H 12/30/17 08:50 Urine Blood Negative (NEGATIVE) 12/30/17 08:50 Urine Nitrite Negative (NEGATIVE) 12/30/17 08:50 Urine Bilirubin Negative (NEGATIVE) 12/30/17 08:50 Urine Urobilinogen 2.0 mg/dL (0.2-1.0) 12/30/17 08:50 Ur Leukocyte Esterase Negative (NEGATIVE) 12/30/17 08:50 Urine WBC (Auto) 4 /hpf (3-5) 12/30/17 08:50 Urine RBC (Auto) 1 /hpf (0-3) 12/30/17 08:50 Ur Epithelial Cells Rare /HPF (FEW) 12/30/17 08:50 Urine Bacteria Few /hpf (NONE SEEN) 12/30/17 08:50 Hyaline Casts 2 /lpf 12/30/17 08:50 Urine Mucus Few 12/30/17 08:50 RPR Titer Nonreactive (NONREACTIVE) 12/30/17 06:00 Hep C Ab Diagnostic <0.1 s/co ratio (0.0-0.9) 12/30/17 06:00 Plan: Nitro 0.4 STAT dose Pulse ox EKG : NSR with T wave oxygen 2L / PRN Patient sent to [facility], endorse to Dr. Cece Pompa
[2018-01-02] MEDS ORDERED: NITROGLYCERIN SUBLINGUAL 1/150 0.4 MG TAB SL ONE (18:15)
[2018-01-02] MEDS: QUEtiapine FUMARATE 100 MG TABLET (FP) PO SCH (22:34)
[2018-01-02] MEDS: MIRTAZAPINE 15 MG TABLET (FP) PO SCH (22:34)
[2018-01-02] MEDS: THIAMINE HCL 100 MG TABLET (FP) PO SCH (22:34)
[2018-01-03] MEDS: MEGESTROL ACETATE 400 MG/10 ML UNIT DOSE CUP PO SCH ×2 (06:09→17:14)
[2018-01-03] MEDS: amLODIPine BESYLATE 10 MG TABLET (FP) PO SCH (10:27)
[2018-01-03] MEDS: PRENATAL VITAMINS W/ FOLIC ACID TABLET (FP) PO SCH (10:27)
[2018-01-03] MEDS: NICOTINE 14 MG/24 HOURS TOPICAL PATCH TD SCH (10:28)
[2018-01-03] MEDS: MIRTAZAPINE 15 MG TABLET (FP) PO SCH (21:37)
[2018-01-03] MEDS: QUEtiapine FUMARATE 100 MG TABLET (FP) PO SCH (21:38)
[2018-01-03] MEDS: THIAMINE HCL 100 MG TABLET (FP) PO SCH (21:38)
--- NOTE | 2018-01-03 23:35 | PN ---
[facility] Progress Note Note: Patient was seen in room regarding his antiviral medication "Genvoya" tablet which was ordered and not provided by pharmacy. I contacted Mr. Julio Stout, the pharmacist who states that patient's medication order was cancelled by his pharmacy because he was non compliant. His last dose was on 12/28/2017. Patient is to follow up with his infectious disease physician for review of his medication and reinstatement on antiviral medication. Patient was notified of discussion with the pharmacist. Risks and consequences of adhering to medication regimen reinforced and patient verbalized understanding.
[2018-01-04] MEDS: MEGESTROL ACETATE 400 MG/10 ML UNIT DOSE CUP PO SCH ×2 (06:24→16:56)
[2018-01-04] MEDS: NICOTINE 14 MG/24 HOURS TOPICAL PATCH TD SCH (10:37)
[2018-01-04] MEDS: PRENATAL VITAMINS W/ FOLIC ACID TABLET (FP) PO SCH (10:37)
[2018-01-04] MEDS: amLODIPine BESYLATE 10 MG TABLET (FP) PO SCH (10:37)
--- NOTE | 2018-01-04 15:30 | PN ---
[facility] Progress Note Note: Patient presents today to discuss HIV medication. Pt was transferred to [facility] on 01/02/18 for evaluation of chest pain. Work up negative. Pt states he feels better. Denies Chest pain, SOB, dizziness and nausea. Vital Signs Temperature 97.9 F 01/04/18 06:52 Pulse Rate 84 01/04/18 06:52 Respiratory Rate 16 01/04/18 06:52 Blood Pressure 122/69 01/04/18 06:52 O2 Sat by Pulse Oximetry (%) Laboratory Last Values WBC 4.8 K/mm3 (4.0-10.0) 12/30/17 06:00 RBC 4.15 M/mm3 (4.00-5.60) 12/30/17 06:00 Hgb 12.5 GM/dL (11.7-16.9) D 12/30/17 06:00 Hct 37.5 % (35.4-49) 12/30/17 06:00 MCV 90.4 fl (80-96) 12/30/17 06:00 MCH 30.0 pg (25.7-33.7) 12/30/17 06:00 MCHC 33.2 g/dl (32.0-35.9) 12/30/17 06:00 RDW 14.2 % (11.9-15.9) 12/30/17 06:00 Plt Count 348 K/MM3 (134-434) D 12/30/17 06:00 MPV 10.3 fl (7.5-11.1) D 12/30/17 06:00 Sodium 139 mmol/L (136-145) 12/30/17 06:00 Potassium 3.6 mmol/L (3.5-5.1) 12/30/17 06:00 Chloride 104 mmol/L (98-107) 12/30/17 06:00 Carbon Dioxide 28 mmol/L (21-32) 12/30/17 06:00 Anion Gap 7 (8-16) L 12/30/17 06:00 BUN 15 mg/dL (7-18) D 12/30/17 06:00 Creatinine 1.3 mg/dL (0.7-1.3) 12/30/17 06:00 Creat Clearance w eGFR 57.75 (>60) 12/30/17 06:00 POC Glucometer 96 UNITS (80-120) 12/31/17 07:58 Random Glucose 59 mg/dL (74-106) L D 12/30/17 06:00 Calcium 8.9 mg/dL (8.5-10.1) 12/30/17 06:00 Total Bilirubin 0.9 mg/dL (0.2-1.0) D 12/30/17 06:00 AST 22 U/L (15-37) D 12/30/17 06:00 ALT 14 U/L (12-78) D 12/30/17 06:00 Alkaline Phosphatase 63 U/L (45-117) 12/30/17 06:00 Total Protein 7.4 g/dl (6.4-8.2) 12/30/17 06:00 Albumin 3.5 g/dl (3.4-5.0) 12/30/17 06:00 Urine Color Jaida 12/30/17 08:50 Urine Appearance Turbid 12/30/17 08:50 Urine pH 5.0 (5.0-8.0) D 12/30/17 08:50 Ur Specific [place] 1.031 (1.001-1.035) 12/30/17 08:50 Urine Protein 1+ (NEGATIVE) H 12/30/17 08:50 Urine Glucose (UA) Negative (NEGATIVE) 12/30/17 08:50 Urine Ketones 1+ (NEGATIVE) H 12/30/17 08:50 Urine Blood Negative (NEGATIVE) 12/30/17 08:50 Urine Nitrite Negative (NEGATIVE) 12/30/17 08:50 Urine Bilirubin Negative (NEGATIVE) 12/30/17 08:50 Urine Urobilinogen 2.0 mg/dL (0.2-1.0) 12/30/17 08:50 Ur Leukocyte Esterase Negative (NEGATIVE) 12/30/17 08:50 Urine WBC (Auto) 4 /hpf (3-5) 12/30/17 08:50 Urine RBC (Auto) 1 /hpf (0-3) 12/30/17 08:50 Ur Epithelial Cells Rare /HPF (FEW) 12/30/17 08:50 Urine Bacteria Few /hpf (NONE SEEN) 12/30/17 08:50 Hyaline Casts 2 /lpf 12/30/17 08:50 Urine Mucus Few 12/30/17 08:50 RPR Titer Nonreactive (NONREACTIVE) 12/30/17 06:00 Hep C Ab Diagnostic <0.1 s/co ratio (0.0-0.9) 12/30/17 06:00 Obj: Pt alert and oriented x 3. In NAD. Afebrile. A/P: Will continue current medications and treatment. Add ASA to regimen. Increase oral fluids. Pt advised to notify staff of worsening symptoms Continue to monitor clinically
[2018-01-04] MEDS: ASPIRIN COATED 81 MG TABLET.EC PO SCH (16:10)
[2018-01-04] MEDS: MIRTAZAPINE 15 MG TABLET (FP) PO SCH (21:27)
[2018-01-04] MEDS: THIAMINE HCL 100 MG TABLET (FP) PO SCH (21:27)
[2018-01-04] MEDS: QUEtiapine FUMARATE 100 MG TABLET (FP) PO SCH (21:27)
[2018-01-05] MEDS: MEGESTROL ACETATE 400 MG/10 ML UNIT DOSE CUP PO SCH ×2 (06:37→16:43)
--- NOTE | 2018-01-05 10:06 | EKG ---
Test Reason : Blood Pressure : / mmHG Vent. Rate : 078 BPM Atrial Rate : 078 BPM P-R Int : 162 ms QRS Dur : 080 ms QT Int : 348 ms P-R-T Axes : 042 067 -56 degrees QTc Int : 396 ms NORMAL SINUS RHYTHM T WAVE ABNORMALITY, CONSIDER INFERIOR ISCHEMIA T WAVE ABNORMALITY, CONSIDER ANTERIOR ISCHEMIA ABNORMAL ECG Confirmed by PHIL ROTHMAN MD ([id number]) on 01/05/2018 10:05:32 AM Referred By: Confirmed By:PHIL ROTHMAN MD
[2018-01-05] MEDS: amLODIPine BESYLATE 10 MG TABLET (FP) PO SCH (10:08)
[2018-01-05] MEDS: ASPIRIN COATED 81 MG TABLET.EC PO SCH (10:08)
[2018-01-05] MEDS: PRENATAL VITAMINS W/ FOLIC ACID TABLET (FP) PO SCH (10:08)
[2018-01-05] MEDS: NICOTINE 14 MG/24 HOURS TOPICAL PATCH TD SCH (10:09)
[2018-01-05] MEDS ORDERED: LIDOCAINE VISCOUS 2% ORAL/TOP 20 ML UNIT-DOSE CUP MM PRN (13:49)
[2018-01-05] MEDS: MIRTAZAPINE 15 MG TABLET (FP) PO SCH (21:09)
[2018-01-05] MEDS: cloNIDine HCL 0.1 MG TABLET PO SCH (21:09)
[2018-01-05] MEDS: QUEtiapine FUMARATE 100 MG TABLET (FP) PO SCH (21:09)
[2018-01-05] MEDS: THIAMINE HCL 100 MG TABLET (FP) PO SCH (21:09)
[2018-01-06] MEDS: MEGESTROL ACETATE 400 MG/10 ML UNIT DOSE CUP PO SCH ×2 (06:35→18:01)
[2018-01-06] MEDS: PRENATAL VITAMINS W/ FOLIC ACID TABLET (FP) PO SCH (10:17)
[2018-01-06] MEDS: NICOTINE 14 MG/24 HOURS TOPICAL PATCH TD SCH (10:17)
[2018-01-06] MEDS: ASPIRIN COATED 81 MG TABLET.EC PO SCH (10:17)
[2018-01-06] MEDS: amLODIPine BESYLATE 10 MG TABLET (FP) PO SCH (10:17)
[2018-01-06] MEDS: MENTHOL/PHENOL 1 EACH UD MM PRN (14:08)
[2018-01-06] MEDS: QUEtiapine FUMARATE 100 MG TABLET (FP) PO SCH (21:40)
[2018-01-06] MEDS: THIAMINE HCL 100 MG TABLET (FP) PO SCH (21:40)
[2018-01-06] MEDS: MIRTAZAPINE 15 MG TABLET (FP) PO SCH (21:40)
[2018-01-06] MEDS: cloNIDine HCL 0.1 MG TABLET PO SCH (21:40)
[2018-01-07] MEDS: MEGESTROL ACETATE 400 MG/10 ML UNIT DOSE CUP PO SCH ×2 (06:22→16:38)
[2018-01-07] MEDS: PRENATAL VITAMINS W/ FOLIC ACID TABLET (FP) PO SCH (10:07)
[2018-01-07] MEDS: NICOTINE 14 MG/24 HOURS TOPICAL PATCH TD SCH (10:07)
[2018-01-07] MEDS: ASPIRIN COATED 81 MG TABLET.EC PO SCH (10:07)
[2018-01-07] MEDS: amLODIPine BESYLATE 10 MG TABLET (FP) PO SCH (10:07)
[2018-01-07] MEDS: MIRTAZAPINE 15 MG TABLET (FP) PO SCH (21:27)
[2018-01-07] MEDS: cloNIDine HCL 0.1 MG TABLET PO SCH (21:27)
[2018-01-07] MEDS: QUEtiapine FUMARATE 100 MG TABLET (FP) PO SCH (21:27)
[2018-01-07] MEDS: THIAMINE HCL 100 MG TABLET (FP) PO SCH (21:27)
[2018-01-07] MEDS ORDERED: FLUCONAZOLE 100 MG TABLET (UD) PO ONE ×2 (21:30→22:30)
[2018-01-08] MEDS: CLOTRIMAZOLE 10 MG TROCHE (FP) PO SCH ×3 (03:30→22:05)
[2018-01-08] MEDS: MEGESTROL ACETATE 400 MG/10 ML UNIT DOSE CUP PO SCH ×2 (06:19→17:53)
--- NOTE | 2018-01-08 09:17 | EKG ---
Test Reason : Blood Pressure : / mmHG Vent. Rate : 090 BPM Atrial Rate : 090 BPM P-R Int : 146 ms QRS Dur : 080 ms QT Int : 332 ms P-R-T Axes : 041 060 -31 degrees QTc Int : 406 ms NORMAL SINUS RHYTHM ABNORMAL ECG WHEN COMPARED WITH ECG OF 02-JAN-2018 19:19, NO SIGNIFICANT CHANGE WAS FOUND Confirmed by SCOTT PORTER MD ([id number]) on 01/08/2018 9:17:11 AM Referred By: Deneen FLORES Confirmed By:SCOTT PORTER MD
[2018-01-08] MEDS: ASPIRIN COATED 81 MG TABLET.EC PO SCH (10:50)
[2018-01-08] MEDS: amLODIPine BESYLATE 10 MG TABLET (FP) PO SCH (10:50)
[2018-01-08] MEDS: NICOTINE 14 MG/24 HOURS TOPICAL PATCH TD SCH (10:51)
[2018-01-08] MEDS: PRENATAL VITAMINS W/ FOLIC ACID TABLET (FP) PO SCH (10:51)
[2018-01-08] MEDS: MENTHOL/PHENOL 1 EACH UD MM PRN (10:52)
--- NOTE | 2018-01-08 12:52 | PN ---
[facility] Progress Note Note: Late note entry Telephoned about pt . Pt seen 01/07/18 for c/o of sore throat evaluated, oral thrush noted. Breath sounds clear in all lung breen, no resp distress. Difflucan ordered
[2018-01-08] MEDS: MIRTAZAPINE 15 MG TABLET (FP) PO SCH (22:05)
[2018-01-08] MEDS: cloNIDine HCL 0.1 MG TABLET PO SCH (22:05)
[2018-01-08] MEDS: THIAMINE HCL 100 MG TABLET (FP) PO SCH (22:06)
[2018-01-08] MEDS: QUEtiapine FUMARATE 100 MG TABLET (FP) PO SCH (22:06)
[2018-01-09] MEDS: CLOTRIMAZOLE 10 MG TROCHE (FP) PO SCH ×5 (06:05→21:29)
[2018-01-09] MEDS: MEGESTROL ACETATE 400 MG/10 ML UNIT DOSE CUP PO SCH ×2 (06:05→16:52)
[2018-01-09] MEDS: PRENATAL VITAMINS W/ FOLIC ACID TABLET (FP) PO SCH (10:18)
[2018-01-09] MEDS: amLODIPine BESYLATE 10 MG TABLET (FP) PO SCH (10:18)
[2018-01-09] MEDS: NICOTINE 14 MG/24 HOURS TOPICAL PATCH TD SCH (10:18)
[2018-01-09] MEDS: ASPIRIN COATED 81 MG TABLET.EC PO SCH (10:18)
[2018-01-09] MEDS: hydrOXYzine PAMOATE 50 MG CAPSULE (FP) PO PRN ×2 (14:35→21:29)
--- NOTE | 2018-01-09 14:37 | PN ---
Psychiatric Progress Note Vital Signs: Vital Signs Period Temp Pulse Resp BP Sys/Contreras Pulse Ox Last 24 Hr 99.1 F 80-93 16-18 119-126/76-79 Date of Session: 01/09/18 Chief Complaint:: "anxiety" HPI: Patient is addressing cocaine, cannabis, methamphetamine, nicotine dependence comorbid MDD. Current Medications: Active Medications Generic Name Dose Route Start Last Admin Trade Name Freq PRN Reason Stop Dose Admin Acetaminophen 650 mg 12/29/17 14:06 Tylenol - PO Q4H PRN FEVER Al Hydroxide/Mg Hydroxide 30 ml 12/29/17 14:06 01/02/18 13:22 Mylanta Oral Suspension - PO 30 ml Q6H PRN Administration DYSPEPSIA Amlodipine Besylate 10 mg 12/30/17 10:00 01/09/18 10:18 Norvasc - PO 10 mg DAILY MICHAEL Administration Aspirin 81 mg 01/04/18 15:30 01/09/18 10:18 Ecotrin - PO 81 mg DAILY MICHAEL Administration Buspirone HCl 5 mg 01/09/18 22:00 Buspar - PO TID MICHAEL Clonidine 0.1 mg 01/05/18 22:00 01/08/18 22:05 Catapres - PO Not Given HS MICHAEL Clotrimazole 10 mg 01/08/18 14:00 01/09/18 14:11 Mycelex Elisa's - PO 10 mg 5XD MICHAEL Administration Eucalyptus/Menthol/Phenol/Sorbitol 1 each 12/29/17 14:06 01/08/18 10:52 Cepastat Lozenge - MM 1 each Q4H PRN Administration SORE THROAT Guaifenesin 10 ml 12/29/17 14:06 Robitussin Dm - PO Q6H PRN COUGH Hydroxyzine Pamoate 50 mg 12/29/17 14:06 Vistaril - PO Q4H PRN AGITATION Ibuprofen 400 mg 12/29/17 14:06 Motrin - PO Q6H PRN PAIN LEVEL 4-6 Lidocaine HCl 20 ml 01/05/18 13:49 Xylocaine 2% Viscous Oral - MM Q6HPO PRN ORAL PAIN/MOUTH SORES Loperamide HCl 4 mg 12/29/17 14:06 01/02/18 06:34 Imodium - PO 4 mg Q6H PRN Administration DIARRHEA Magnesium Citrate 300 ml 12/29/17 14:06 Citroma - PO Q48H PRN CONSTIPATION Magnesium Hydroxide 30 ml 12/29/17 14:06 Milk Of Magnesia - PO DAILY PRN CONSTIPATION Megestrol Acetate 400 mg 12/29/17 16:30 01/09/18 06:05 Megace Oral Suspension - PO 400 mg BIDAC MICHAEL Administration Mirtazapine 15 mg 12/29/17 22:00 01/08/18 22:05 Remeron - PO Not Given HS MICHAEL Nicotine 14 mg 12/30/17 10:00 01/09/18 10:18 Nicoderm Patch - TD Not Given DAILY MICHAEL Nicotine Polacrilex 2 mg 12/29/17 14:06 Nicorette Gum - BUC Q2H PRN NICOTINE REPLACEMENT RX Multivit/Folic Acid/Iron 1 tab 12/30/17 10:00 01/09/18 10:18 Vitamins (Sjr) - PO 1 tab DAILY MICHAEL Administration Pseudoephedrine/Triprolidine 1 combo 12/29/17 14:06 Actifed - PO TID PRN NASAL CONGESTION Quetiapine Fumarate 200 mg 01/09/18 14:31 Seroquel - PO HS MICHAEL Thiamine HCl 100 mg 12/29/17 22:00 01/08/18 22:06 Vitamin B1 - PO Not Given HS MICHAEL Medication(s) Change(s): increase Seroquel 200 mg po hs, add Buspar 5 mg po tid. Current Side Effect: No Lab tests ordered: No Lab tests reviewed: Yes Provider note:: Patient reports has been feeling very anxious, unable to sleep due to racing thoughts and increased anxiety, states his anxiety was so severe that he wanted to leave treatment. Patient has a hand shakes and looks anxious. Reviewed medications with the patient , will increase Seroquel 200 mg pohs, add Buspar(side-effects/benefits discussed with the patient) he agreed with careplan , supportive therapy provided, ways to reduce stress discussed. Total face to face time:: 25 Mental Status Exam - Mental Status Exam Alert and Oriented to: Time, Place, Person Cognitive Function: Grossly Intact Patient Appearance: Well Groomed Mood: Fearful, Nervous, Anxious Affect: Mood Congruent Patient Behavior: Appropriate, Cooperative Speech Pattern: Appropriate Voice Loudness: Normal Thought Process: Goal Oriented Thought Disorder: Not Present Hallucinations: Denies Suicidal Ideation: Denies Homicidal Ideation: Denies Insight/Judgement: Fair Sleep: Poorly, Difficulty falling asleep Appetite: Fair Muscle strength/Tone: Normal Psychiatric Treatment Plan - Problem List (1) Cannabis dependence Current Visit: Yes (2) Methamphetamine abuse Current Visit: Yes (3) Cocaine dependence Current Visit: Yes Qualifiers: Substance use status: uncomplicated Qualified Code(s): F14.20 - Cocaine dependence, uncomplicated (4) MDD (major depressive disorder) Current Visit: Yes Comment: Historical diagnosis. (5) Alcohol dependence Current Visit: No
[2018-01-09] MEDS: cloNIDine HCL 0.1 MG TABLET PO SCH (21:28)
[2018-01-09] MEDS: MIRTAZAPINE 15 MG TABLET (FP) PO SCH (21:28)
[2018-01-09] MEDS: QUEtiapine FUMARATE 200 MG TABLET PO SCH (21:29)
[2018-01-09] MEDS: busPIRone HCL 5 MG TABLET PO SCH (21:29)
[2018-01-09] MEDS: THIAMINE HCL 100 MG TABLET (FP) PO SCH (21:29)
[2018-01-10] MEDS: CLOTRIMAZOLE 10 MG TROCHE (FP) PO SCH ×5 (06:34→21:30)
[2018-01-10] MEDS: MEGESTROL ACETATE 400 MG/10 ML UNIT DOSE CUP PO SCH ×2 (06:34→16:56)
[2018-01-10] MEDS: busPIRone HCL 5 MG TABLET PO SCH ×3 (06:34→21:30)
[2018-01-10] MEDS: ASPIRIN COATED 81 MG TABLET.EC PO SCH (10:06)
[2018-01-10] MEDS: amLODIPine BESYLATE 10 MG TABLET (FP) PO SCH (10:06)
[2018-01-10] MEDS: PRENATAL VITAMINS W/ FOLIC ACID TABLET (FP) PO SCH (10:07)
[2018-01-10] MEDS: NICOTINE 14 MG/24 HOURS TOPICAL PATCH TD SCH (10:07)
[2018-01-10] MEDS: hydrOXYzine PAMOATE 50 MG CAPSULE (FP) PO PRN (14:24)
[2018-01-10] MEDS: cloNIDine HCL 0.1 MG TABLET PO SCH (21:30)
[2018-01-10] MEDS: MIRTAZAPINE 15 MG TABLET (FP) PO SCH (21:30)
[2018-01-10] MEDS: QUEtiapine FUMARATE 200 MG TABLET PO SCH (21:30)
[2018-01-10] MEDS: THIAMINE HCL 100 MG TABLET (FP) PO SCH (21:30)
[2018-01-11] MEDS: CLOTRIMAZOLE 10 MG TROCHE (FP) PO SCH ×5 (06:21→22:18)
[2018-01-11] MEDS: MEGESTROL ACETATE 400 MG/10 ML UNIT DOSE CUP PO SCH ×2 (06:21→17:23)
[2018-01-11] MEDS: busPIRone HCL 5 MG TABLET PO SCH ×3 (06:21→22:18)
[2018-01-11] MEDS: amLODIPine BESYLATE 10 MG TABLET (FP) PO SCH (10:26)
[2018-01-11] MEDS: PRENATAL VITAMINS W/ FOLIC ACID TABLET (FP) PO SCH (10:26)
[2018-01-11] MEDS: NICOTINE 14 MG/24 HOURS TOPICAL PATCH TD SCH (10:26)
[2018-01-11] MEDS: ASPIRIN COATED 81 MG TABLET.EC PO SCH (10:26)
[2018-01-11] MEDS ORDERED: IBUPROFEN 600 MG TABLET (FP) PO PRN (14:54)
--- NOTE | 2018-01-11 15:48 | PN ---
[facility] Progress Note Note: Vital Signs Temperature 97.2 F L 01/11/18 07:23 Pulse Rate 101 H 01/11/18 07:23 Respiratory Rate 18 01/11/18 07:23 Blood Pressure 126/76 01/11/18 07:23 O2 Sat by Pulse Oximetry (%) Laboratory Last Values WBC 4.8 K/mm3 (4.0-10.0) 12/30/17 06:00 RBC 4.15 M/mm3 (4.00-5.60) 12/30/17 06:00 Hgb 12.5 GM/dL (11.7-16.9) D 12/30/17 06:00 Hct 37.5 % (35.4-49) 12/30/17 06:00 MCV 90.4 fl (80-96) 12/30/17 06:00 MCH 30.0 pg (25.7-33.7) 12/30/17 06:00 MCHC 33.2 g/dl (32.0-35.9) 12/30/17 06:00 RDW 14.2 % (11.9-15.9) 12/30/17 06:00 Plt Count 348 K/MM3 (134-434) D 12/30/17 06:00 MPV 10.3 fl (7.5-11.1) D 12/30/17 06:00 Sodium 139 mmol/L (136-145) 12/30/17 06:00 Potassium 3.6 mmol/L (3.5-5.1) 12/30/17 06:00 Chloride 104 mmol/L (98-107) 12/30/17 06:00 Carbon Dioxide 28 mmol/L (21-32) 12/30/17 06:00 Anion Gap 7 (8-16) L 12/30/17 06:00 BUN 15 mg/dL (7-18) D 12/30/17 06:00 Creatinine 1.3 mg/dL (0.7-1.3) 12/30/17 06:00 Creat Clearance w eGFR 57.75 (>60) 12/30/17 06:00 POC Glucometer 96 UNITS (80-120) 12/31/17 07:58 Random Glucose 59 mg/dL (74-106) L D 12/30/17 06:00 Calcium 8.9 mg/dL (8.5-10.1) 12/30/17 06:00 Total Bilirubin 0.9 mg/dL (0.2-1.0) D 12/30/17 06:00 AST 22 U/L (15-37) D 12/30/17 06:00 ALT 14 U/L (12-78) D 12/30/17 06:00 Alkaline Phosphatase 63 U/L (45-117) 12/30/17 06:00 Total Protein 7.4 g/dl (6.4-8.2) 12/30/17 06:00 Albumin 3.5 g/dl (3.4-5.0) 12/30/17 06:00 Urine Color [place] 12/30/17 08:50 Urine Appearance Turbid 12/30/17 08:50 Urine pH 5.0 (5.0-8.0) D 12/30/17 08:50 Ur Specific [place] 1.031 (1.001-1.035) 12/30/17 08:50 Urine Protein 1+ (NEGATIVE) H 12/30/17 08:50 Urine Glucose (UA) Negative (NEGATIVE) 12/30/17 08:50 Urine Ketones 1+ (NEGATIVE) H 12/30/17 08:50 Urine Blood Negative (NEGATIVE) 12/30/17 08:50 Urine Nitrite Negative (NEGATIVE) 12/30/17 08:50 Urine Bilirubin Negative (NEGATIVE) 12/30/17 08:50 Urine Urobilinogen 2.0 mg/dL (0.2-1.0) 12/30/17 08:50 Ur Leukocyte Esterase Negative (NEGATIVE) 12/30/17 08:50 Urine WBC (Auto) 4 /hpf (3-5) 12/30/17 08:50 Urine RBC (Auto) 1 /hpf (0-3) 12/30/17 08:50 Ur Epithelial Cells Rare /HPF (FEW) 12/30/17 08:50 Urine Bacteria Few /hpf (NONE SEEN) 12/30/17 08:50 Hyaline Casts 2 /lpf 12/30/17 08:50 Urine Mucus Few 12/30/17 08:50 RPR Titer Nonreactive (NONREACTIVE) 12/30/17 06:00 Hep C Ab Diagnostic <0.1 s/co ratio (0.0-0.9) 12/30/17 06:00 Patient c/o difficulty moving bowels x 4 days, pain on the left lower extremity with ambulation, relieved with rest. Assessment GENERAL APPEARANCE: Well developed, well nourished, alert no acute distress. CARDIAC: Normal Rate and Rhythm . There is no peripheral edema, cyanosis or pallor. AB: BS x4, non-tender, + hyperactive BS LLQ LUNGS: Clear to auscultation no adventitious breath sounds MUSKULOSKELETAL: Full ROM intact. No joint erythema or tenderness. + left lower extremity pain NEUROLOGICAL: CN II-XII intact. 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
[2018-01-11] MEDS: DOCUSATE SODIUM 100 MG CAPSULE (FP) PO SCH ×2 (16:06→22:18)
--- NOTE | 2018-01-11 21:21 | PN ---
[facility] Progress Note Note: Rapid response team patient fell dizzy, diaphoretic, SOB, weak after he had vomited and seen some blood. TARAN Richards assisted patient to the floor. Patient c/ o of LLE calf pain earlier today. Patient was given to 2L of oxygen with improvement in SOB. Upon EMS arrival patient reports his experiencing chest pains. V/S BP 149/99 P115 Resp 18 T99.2 O2 97% Patient very anxious, in distress Normal HR No adventitious breath sounds No skin discoloration Plan: Patient was sent to [facility] for further evaluation. Patient endorse to Dr. Bullard.
[2018-01-11] MEDS: MIRTAZAPINE 15 MG TABLET (FP) PO SCH (22:18)
[2018-01-11] MEDS: cloNIDine HCL 0.1 MG TABLET PO SCH (22:18)
[2018-01-11] MEDS: THIAMINE HCL 100 MG TABLET (FP) PO SCH (22:19)
[2018-01-11] MEDS: QUEtiapine FUMARATE 200 MG TABLET PO SCH (22:19)
[2018-01-12] MEDS: MEGESTROL ACETATE 400 MG/10 ML UNIT DOSE CUP PO SCH ×2 (06:18→17:28)
[2018-01-12] MEDS: busPIRone HCL 5 MG TABLET PO SCH ×3 (06:18→21:25)
[2018-01-12] MEDS: CLOTRIMAZOLE 10 MG TROCHE (FP) PO SCH ×5 (06:19→21:25)
[2018-01-12] MEDS: DOCUSATE SODIUM 100 MG CAPSULE (FP) PO SCH ×3 (06:19→21:25)
[2018-01-12 07:33] VITALS: TEMP 99
[2018-01-12] MEDS: amLODIPine BESYLATE 10 MG TABLET (FP) PO SCH (10:09)
[2018-01-12] MEDS: PRENATAL VITAMINS W/ FOLIC ACID TABLET (FP) PO SCH (10:09)
[2018-01-12] MEDS: ASPIRIN COATED 81 MG TABLET.EC PO SCH (10:09)
[2018-01-12] MEDS: NICOTINE 14 MG/24 HOURS TOPICAL PATCH TD SCH (10:09)
[2018-01-12] MEDS: hydrOXYzine PAMOATE 50 MG CAPSULE (FP) PO PRN ×2 (10:10→14:22)
--- NOTE | 2018-01-12 13:33 | PN ---
Psychiatric Progress Note Vital Signs: Vital Signs Period Temp Pulse Resp BP Sys/Contreras Pulse Ox Last 24 Hr 99.0 F-99.2 F 87-115 18-18 120-149/81-99 Date of Session: 01/12/18 Chief Complaint:: "he is crying" HPI: Patient is addressing cocaine, cannabis, methamphetamine, nicotine dependence comorbid MDD. ROS: WNL Current Medications: Active Medications Generic Name Dose Route Start Last Admin Trade Name Freq PRN Reason Stop Dose Admin Acetaminophen 650 mg 12/29/17 14:06 Tylenol - PO Q4H PRN FEVER Al Hydroxide/Mg Hydroxide 30 ml 12/29/17 14:06 01/02/18 13:22 Mylanta Oral Suspension - PO 30 ml Q6H PRN Administration DYSPEPSIA Amlodipine Besylate 10 mg 12/30/17 10:00 01/12/18 10:09 Norvasc - PO 10 mg DAILY MICHAEL Administration Aspirin 81 mg 01/04/18 15:30 01/12/18 10:09 Ecotrin - PO 81 mg DAILY MICHAEL Administration Buspirone HCl 5 mg 01/09/18 22:00 01/12/18 13:21 Buspar - PO 5 mg TID MICHAEL Administration Clonidine 0.1 mg 01/05/18 22:00 01/11/18 22:18 Catapres - PO Not Given HS MICHAEL Clotrimazole 10 mg 01/08/18 14:00 01/12/18 10:11 Mycelex Elisa's - PO 10 mg 5XD MICHAEL Administration Docusate Sodium 100 mg 01/11/18 15:00 01/12/18 13:21 Colace - PO Not Given TID MICHAEL Eucalyptus/Menthol/Phenol/Sorbitol 1 each 12/29/17 14:06 01/08/18 10:52 Cepastat Lozenge - MM 1 each Q4H PRN Administration SORE THROAT Guaifenesin 10 ml 12/29/17 14:06 Robitussin Dm - PO Q6H PRN COUGH Hydroxyzine Pamoate 50 mg 12/29/17 14:06 01/12/18 10:10 Vistaril - PO 50 mg Q4H PRN Administration AGITATION Ibuprofen 600 mg 01/11/18 14:54 Motrin - PO Q8H PRN PAIN LEVEL 4-6 Lidocaine HCl 20 ml 01/05/18 13:49 Xylocaine 2% Viscous Oral - MM Q6HPO PRN ORAL PAIN/MOUTH SORES Loperamide HCl 4 mg 12/29/17 14:06 01/02/18 06:34 Imodium - PO 4 mg Q6H PRN Administration DIARRHEA Magnesium Citrate 300 ml 12/29/17 14:06 01/11/18 16:07 Citroma - PO 300 ml Q48H PRN Administration CONSTIPATION Magnesium Hydroxide 30 ml 12/29/17 14:06 Milk Of Magnesia - PO DAILY PRN CONSTIPATION Megestrol Acetate 400 mg 12/29/17 16:30 01/12/18 06:18 Megace Oral Suspension - PO 400 mg BIDAC MICHAEL Administration Mirtazapine 15 mg 12/29/17 22:00 01/11/18 22:18 Remeron - PO Not Given HS MICHAEL Nicotine 14 mg 12/30/17 10:00 01/12/18 10:09 Nicoderm Patch - TD Not Given DAILY MICHAEL Nicotine Polacrilex 2 mg 12/29/17 14:06 Nicorette Gum - BUC Q2H PRN NICOTINE REPLACEMENT RX Multivit/Folic Acid/Iron 1 tab 12/30/17 10:00 01/12/18 10:09 Vitamins (Sjr) - PO 1 tab DAILY MICHAEL Administration Pseudoephedrine/Triprolidine 1 combo 12/29/17 14:06 Actifed - PO TID PRN NASAL CONGESTION Quetiapine Fumarate 50 mg 01/12/18 13:23 Seroquel - PO 01/12/18 13:24 ONCE ONE Quetiapine Fumarate 300 mg 01/12/18 13:24 Seroquel - PO HS MICHAEL Quetiapine Fumarate 50 mg 01/13/18 10:00 Seroquel - PO DAILY MICHAEL Thiamine HCl 100 mg 12/29/17 22:00 01/11/18 22:19 Vitamin B1 - PO Not Given HS MICHAEL Medication(s) Change(s): start Seroquel 50 mg po one dose, 50 mg po am and increase Seroquel 300 mg po hs. Current Side Effect: No Lab tests ordered: No Lab tests reviewed: Yes Provider note:: Patient was seen, crying , reports he has feeling/urges to leave and get high, he does not want to leave, he knows this is not right he has to stay and focus on his treatment, states latety he has this thoughts to leave and get high more often "I am trying my best to resist this urges, crying for help", he denies suicidal and homicildal thoughts, denies auditory and visual hallucinations, patient was provided with supportive therapy, he was encouraged to aprouch the staff for help if he have any negative thoughts to leave place, patient was recommended to increase Seroquel 300 mg po hs(was on this dosage before) and add Seroquel 50 mg po am, stat dosage 50 mg provided. Patient reports he will go to the groups, continue to monitor progress. Total face to face time:: 35 Mental Status Exam - Mental Status Exam Alert and Oriented to: Time, Place, Person Cognitive Function: Good Patient Appearance: Well Groomed Mood: Sad, Anxious Affect: Mood Congruent Patient Behavior: Crying, Cooperative Speech Pattern: Clear, Appropriate Voice Loudness: Normal Thought Process: Intact, Goal Oriented Thought Disorder: Not Present Hallucinations: Denies Suicidal Ideation: Denies Homicidal Ideation: Denies Insight/Judgement: Fair Sleep: Fair Appetite: Fair Muscle strength/Tone: Normal Gait/Station: Normal Psychiatric Treatment Plan - Problem List (1) Cannabis dependence Current Visit: Yes (2) Methamphetamine abuse Current Visit: Yes (3) Cocaine dependence Current Visit: Yes Qualifiers: Substance use status: uncomplicated Qualified Code(s): F14.20 - Cocaine dependence, uncomplicated (4) MDD (major depressive disorder) Current Visit: Yes Comment: Historical diagnosis. (5) Alcohol dependence Current Visit: No
[2018-01-12] MEDS ORDERED: QUEtiapine FUMARATE 50 MG TABLET PO ONE (13:36)
[2018-01-12] MEDS: THIAMINE HCL 100 MG TABLET (FP) PO SCH (21:25)
[2018-01-12] MEDS: MIRTAZAPINE 15 MG TABLET (FP) PO SCH (21:25)
[2018-01-12] MEDS: cloNIDine HCL 0.1 MG TABLET PO SCH (21:25)
[2018-01-12] MEDS ORDERED: QUEtiapine FUMARATE 300 MG TABLET PO SCH (22:00)
[2018-01-13] MEDS: CLOTRIMAZOLE 10 MG TROCHE (FP) PO SCH ×2 (06:24→10:40)
[2018-01-13] MEDS: MEGESTROL ACETATE 400 MG/10 ML UNIT DOSE CUP PO SCH (06:24)
[2018-01-13] MEDS: busPIRone HCL 5 MG TABLET PO SCH (06:24)
[2018-01-13] MEDS: DOCUSATE SODIUM 100 MG CAPSULE (FP) PO SCH (06:25)
[2018-01-13 07:12] VITALS: BP 119/72; PULSE 95
[2018-01-13] MEDS ORDERED: QUEtiapine FUMARATE 50 MG TABLET PO SCH (10:00)
[2018-01-13] MEDS: PRENATAL VITAMINS W/ FOLIC ACID TABLET (FP) PO SCH (10:40)
[2018-01-13] MEDS: NICOTINE 14 MG/24 HOURS TOPICAL PATCH TD SCH (10:40)
[2018-01-13] MEDS: amLODIPine BESYLATE 10 MG TABLET (FP) PO SCH (10:40)
[2018-01-13] MEDS: ASPIRIN COATED 81 MG TABLET.EC PO SCH (10:40)
--- NOTE | 2018-01-13 11:42 | PN ---
S Progress Note Note: PATIENT DID NOT WANT TO CONTINUE TREATMENT,SIGNED RELEASE AMA,PSYCHIATRIST FOREIGN CLERK NOTIFIED BY NURSE, PATIENT DID NOT WANT TO WAIT
== END 2018-01-13 11:45 | disposition left against medical advice (07) | DRG 894 ==
LOC: YASAS 10:49 → UNDOADMIN 14:29 → Y6N 14:29 → Y5N 01-02 12:29 → UNDODISIN 01-13 11:45
PROVIDERS: ADMIT Internal Medicine; ATTEND Psychiatry & Neurology Psychiatry
PROC: HZ2ZZZZ Detoxification Services for Substance Abuse Treatment (ICD-10-PCS; principal; 2017-12-29)
PROC: HZ42ZZZ Group Counseling for Substance Abuse Treatment, Cognitive-Behavioral (ICD-10-PCS; 2018-01-02)
DX: F19.230 Other psychoactive substance dependence with withdrawal, uncomplicated (principal); B20 Human immunodeficiency virus [HIV] disease; F14.20 Cocaine dependence, uncomplicated; F33.9 Major depressive disorder, recurrent, unspecified; B37.0 Candidal stomatitis; F10.230 Alcohol dependence with withdrawal, uncomplicated; F12.20 Cannabis dependence, uncomplicated; F15.10 Other stimulant abuse, uncomplicated; F17.210 Nicotine dependence, cigarettes, uncomplicated; I10 Essential (primary) hypertension; G62.9 Polyneuropathy, unspecified; G47.00 Insomnia, unspecified; R42 Dizziness and giddiness; R07.9 Chest pain, unspecified; R06.02 Shortness of breath; R53.1 Weakness; M79.605 Pain in left leg; K59.00 Constipation, unspecified; Z91.013 Allergy to seafood; Z86.69 Personal history of other diseases of the nervous system and sense organs; Z87.898 Personal history of other specified conditions
CPT/HCPCS: 36415; 71045-TC-FY; 71046-TC-FY; 80053; 81003; 81015; 82550; 82553; 82962; 83880; 84484; 85025; 85027; 86593; 93005; 93010; 96374; 99283-25; J0735

== ENCOUNTER 2018-01-02 18:40 | Emergency (ER) | payer OTHER ==
[2018-01-02 19:14] VITALS: BMI 21.4
[2018-01-02 19:20] LABS: EOS % 0.7 % (0-4.5); HEMATOCRIT 33.3 % (35.4-49); HEMOGLOBIN 11.2 GM/dL (11.7-16.9); LYMPH % 33.7 % (8-40); MCH 30.3 pg (25.7-33.7); MCHC 33.7 g/dl (32.0-35.9); MEAN PLT VOLUME 8.7 fl (7.5-11.1); MONO % 8.5 % (3.8-10.2); NEUT % 56.1 % (42.8-82.8); PLATELET COUNT 261 K/MM3 (134-434); RDW 14.3 % (11.9-15.9)
--- NOTE | 2018-01-02 20:06 | PDOC ---
History of Present Illness - General Chief Complaint: Chest Pain Stated Complaint: CHEST PAIN Time Seen by Provider: 01/02/18 18:51 - History of Present Illness Initial Comments: 01/02/18 21:34 The patient is a 52 year old male with a history of HTN who presents for evaluation of chest pain. The patient is currently admitted to rehab for alcohol abuse. He notes that earlier today he had 2 episodes of sharp substernal chest pain without radiation prompting his presentation to the ED for evaluation. He states that his symptoms have resolved since his presentation to the ED. He otherwise denies fevers, chills, SOB, nausea, vomiting, abdominal pain, or changes with urination or bowel movements. He reports that he is currently asymptomatic. Past History - Past Medical History Allergies/Adverse Reactions: Allergies Allergy/AdvReac Type Severity Reaction Status Date / Time fish derived Allergy Severe Swelling Verified 01/02/18 13:03 shellfish derived Allergy Severe Swelling Verified 01/02/18 13:03 No Known Drug Allergies Allergy Verified 01/02/18 13:03 seafood Allergy Severe Swelling Uncoded 01/02/18 13:03 Home Medications: Ambulatory Orders Mirtazapine [Remeron -] 45 mg PO HS #90 tablet 07/18/16 Amlodipine Besylate [Norvasc -] 10 mg PO DAILY 12/29/17 Ciprofloxacin [Cipro -] 250 mg PO Q12H 12/29/17 Elviteg/Cob/Emtri/Tenof Alafen [Genvoya Tablet] 1 each PO DAILY 12/29/17 Megestrol Acetate Oral Susp [Megace Oral Suspension -] 4 tsp PO DAILY 12/29/17 Quetiapine Fumarate [Seroquel] 100 tab PO HS 12/29/17 Anemia: No Asthma: No Cancer: No Cardiac Disorders: No CVA: No COPD: No CHF: No Dementia: No Diabetes: No GI Disorders: Yes (Patient reported history of acid reflux) Disorders: No HTN: Yes (ON MEDS) Hypercholesterolemia: No Kidney Stones: No Liver Disease: No Seizures: No Thyroid Disease: No - Surgical History Abdominal Surgery: No Appendectomy: No Cardiac Surgery: No Cholecystectomy: No Lung Surgery: No Neurologic Surgery: No Orthopedic Surgery: No - Reproductive History Testicular Surgery: No - Immunization History Immunization Up to Date: Yes - Suicide/Smoking/Psychosocial Hx Smoking History: Former smoker Have you smoked in the past 12 months: No Number of Cigarettes Smoked Daily: 10 If you are a former smoker, when did you quit?: 5YRS Cigars Per Day: 0 Information on smoking cessation initiated: No 'Breaking Loose' booklet given: 12/29/17 Hx Alcohol Use: No Drug/Substance Use Hx: Yes (CRACK) Substance Use Type: Cocaine, Marijuana Hx Substance Use Treatment: Yes Review of Systems - Review of Systems Comments:: 01/02/18 21:39 Constitutional: No fevers, chills, fatigue, malaise HEENT: No Rhinorrhea, nasal congestion, visual changes Cardiovascular: Chest pain. No syncope, palpitations, lightheadedness Respiratory: No Cough, SOB, Hemoptysis, Gastrointestinal: No Abdominal pain, Nausea, Vomiting, Constipation, Diarrhea, Melena Genitourinary: No Dysuria, Frequency, Urgency, Hesitancy, Hematuria, Flank pain Musculoskeletal: No Myalgia, arthralgia Skin: No rashes, itching, bruising, pallor Neurologic: No Headache, Dizziness, Numbness, Weakness, or Tingling Psychiatric: No Hallucinations. No SI or HI *Physical Exam - Vital Signs Last Vital Signs Temp Pulse Resp BP Pulse Ox 98.5 F 80 18 122/74 98 01/02/18 19:00 01/02/18 19:00 01/02/18 19:00 01/02/18 19:00 01/02/18 19:00 - Physical Exam Comments: 01/02/18 21:40 General Appearance: Nourished. No Apparent Distress HEENT: EOMI, ROBERT. No Pharyngeal Erythema, Tonsillar Exudate, Tonsillar Erythema Neck: No Cervical Lymphadenopathy Respiratory/Chest: Lungs Clear, Normal Breath Sounds. No Crackles, Rales, Rhonchi, Wheezing Cardiovascular: Regular Rhythm, Regular Rate. No Murmur, Gallops, Rubs Gastrointestinal/Abdominal: Normal Bowel Sounds, Soft. No Guarding, Rebound, Tenderness Musculoskeletal: No CVA Tenderness Extremity: Normal Capillary Refill Integumentary: Normal Color, Dry, Warm Neurologic: Fully Oriented, Alert, Normal Mood/Affect, Normal Response, Heart Score/ECG Review #1 ECG reviewed & interpreted by me at: 21:40 General ECG Interpretation: Sinus Rhythm, Normal Rate, Normal Intervals, No acute ischemic changes ED Treatment Course - LABORATORY CBC & Chemistry Diagram: 01/02/18 19:05 01/02/18 19:05 - ADDITIONAL ORDERS Additional order review: 01/02/18 19:05 RBC 3.70 L MCV 90.0 MCHC 33.7 RDW 14.3 MPV 8.7 D Neutrophils % 56.1 Lymphocytes % 33.7 Monocytes % 8.5 Eosinophils % 0.7 Basophils % 1.0 - RADIOLOGY Radiology Studies Ordered: Category Date Time Status CHEST X-RAY PORTABLE* [RAD] Stat Radiology 01/02/18 18:52 Completed Medical Decision Making - Medical Decision Making 01/02/18 21:40 The patient is a 52 year old male with a history of HTN who presents for evaluation of chest pain. Differential includes but is not limited to: ACS, Pneumonia, Musculoskeletal, infectious, metabolic derangement. Given the patient's resolution in his symptoms and history, it is likely his symptoms are musculoskeletal in nature. However we will obtain a cbc, cmp, troponin, ekg, and chest plain film to evaluate further. We will continue to monitor and reassess in the meantime. 01/02/18 23:38 CBC, cmp, troponin and second troponin are all unremarkable. Chest plain film is unremarkable as read by our radiologist. The patient's symptoms are likely musculoskeletal in nature and he remains asymptomatic at this time. We are comfortable discharging the patient back to [facility] at this time with primary care provider follow up. We discussed the results, plan, and return precautions with the patient who voiced understanding and is agreeable with the plan. *DC/Admit/Observation/Transfer Diagnosis at time of Disposition: Chest pain Qualifiers: Chest pain type: unspecified Qualified Code(s): R07.9 - Chest pain, unspecified - Discharge Dispostion Disposition: HOME Condition at time of disposition: Good Admit: No - Referrals Referrals: Dwayne Montenegro MD [Primary Care Provider] - - Patient Instructions Printed Discharge Instructions: DI for Atypical Chest Pain Additional Instructions: Please return to the ER if you experience concerning or worsening symptoms including worsening chest pain, fevers, difficulty breathing, or vomiting. Your lab results were normal here in the ER. Your chest x-ray and ekg were normal as well. Your symptoms are likely musculoskeletal in nature and you may use ibuprofen as needed to help manage your pain. Please make sure you call to follow up with your primary care provider within 2-3 days to discuss your ER visit and further management of your symptoms. - Post Discharge Activity
[2018-01-02 20:10] LABS: ANION GAP 13 (8-16); BILIRUBIN,TOTAL 0.3 mg/dL (0.2-1.0); BLOOD UREA NITROGEN 13 mg/dL (7-18); CALCIUM 8.5 mg/dL (8.5-10.1); CHLORIDE 110 mmol/L (98-107); CO2 20 mmol/L (21-32); GLUCOSE,RANDOM 103 mg/dL (74-106); SODIUM 143 mmol/L (136-145); TOT PROT 6.5 g/dl (6.4-8.2)
[2018-01-02 20:25] LABS: ALK PHOS 50 U/L (45-117); N-TERMINAL BNP 215.81 pg/ml (5-125); SGPT/ALT 14 U/L (12-78)
[2018-01-02 20:26] LABS: SGOT/AST 19 U/L (15-37)
[2018-01-02] MEDS ORDERED: KETOROLAC TROMETHAMINE 30 MG/1 ML VIAL IVPUSH ONE (20:47)
[2018-01-02] MEDS ORDERED: ASPIRIN 81 MG CHEWABLE TABLETS PO ONE (20:47)
[2018-01-02] MEDS ORDERED: QUEtiapine FUMARATE 100 MG TABLET (FP) PO ONE (20:54)
[2018-01-02] MEDS ORDERED: ASPIRIN 325 MG TABLET ONE (21:04)
[2018-01-02] MEDS ORDERED: QUEtiapine FUMARATE 100 MG TABLET (FP) ONE (21:05)
[2018-01-02] MEDS ORDERED: KETOROLAC TROMETHAMINE 30 MG/1 ML VIAL ONE (21:05)
--- NOTE | 2018-01-02 21:44 | PDOC ---
Attending Attestation - Resident Resident Name: Larry Schulzel - ED Attending Attestation I have performed the following: I have examined & evaluated the patient, The case was reviewed & discussed with the resident, I agree w/resident's findings & plan, Exceptions are as noted - HPI HPI: 01/02/18 21:39 52-year-old male brought in by ambulance from [facility] where he was in detox for alcohol History of present illness coronary disease, hypertension bed 574B 5N - Physicial Exam PE: 01/02/18 21:44 Slender 52-year-old male who had 2 episodes of some chest pain earlier head ncat neck no bruits,no jvd lungs cta b/l cvs [id number], no rubs,no gallops,no murmurs abd soft,nontender extremities no pitting edema skin warm and dry neuro axox3,ambulatory psych sl agitated,anxious to get back to [facility] 01/02/18 23:29 negative cardiac enzymes and discharged back to [facility] - Medical Decision Making 01/03/18 02:52 pt 62 yo had chest pain ans was transported from [facility] detox 2 sets negatve cardiac enzymes and he was discharged back to the rehab facility
[2018-01-03 03:22] VITALS: BP 122/70; PULSE 78; TEMP 98.4
--- NOTE | 2018-01-03 09:56 | EKG ---
Test Reason : Blood Pressure : / mmHG Vent. Rate : 079 BPM Atrial Rate : 079 BPM P-R Int : 158 ms QRS Dur : 082 ms QT Int : 360 ms P-R-T Axes : 038 057 -53 degrees QTc Int : 412 ms NORMAL SINUS RHYTHM T WAVE ABNORMALITY, CONSIDER ANTEROLATERAL ISCHEMIA ABNORMAL ECG WHEN COMPARED WITH ECG OF 02-JAN-2018 16:52, NO SIGNIFICANT CHANGE WAS FOUND Confirmed by ANDREW HOFFMAN MD ([id number]) on 01/03/2018 9:56:19 AM Referred By: Confirmed By:ANDREW HOFFMAN MD
== END 2018-01-03 03:22 | disposition home or self-care (01) ==
LOC: JER 18:40
PROC: 3E0333Z Introduction of Anti-inflammatory into Peripheral Vein, Percutaneous Approach (ICD-10-PCS; principal; 2018-01-02)
DX: R07.9 Chest pain, unspecified (principal); I10 Essential (primary) hypertension; F10.10 Alcohol abuse, uncomplicated
CPT/HCPCS: 36415; 71045-TC-FY; 80053; 82550; 82553; 83880; 84484; 85025; 93005; 93010; 96374; 99283-25

== ENCOUNTER 2018-07-24 09:43 | Inpatient (IN) | payer OTHER ==
[2018-07-24 11:34] VITALS: BMI 25.2
--- NOTE | 2018-07-24 12:00 | HP ---
CIWA Score - CIWA Score Nausea/Vomitin-Mild Nausea/No Vomiting Muscle Tremors: 1-None Visible, but Marquez Anxiety: 2 Agitation: 1-Slight > Activity Paroxysmal Sweats: No Perspiration Orientation: 0-Oriented Tacttile Disturbances: 0-None Auditory Disturbances: 0-None Visual Disturbances: 0-None Headache: 0-None Present CIWA-Ar Total Score: 5 Admission ROS S - HPI Allergies/Adverse Reactions: Allergies Allergy/AdvReac Type Severity Reaction Status Date / Time fish derived Allergy Severe Swelling Verified 01/02/18 13:03 shellfish derived Allergy Severe Swelling Verified 01/02/18 13:03 No Known Drug Allergies Allergy Verified 01/02/18 13:03 seafood Allergy Severe Swelling Uncoded 01/02/18 13:03 History of Present Illness: patient here requesting detox from etoh use , reports 2 pints vodka daily , latest 1 am , current Ayanna 0.00 , reports remors if not drinking , denies seizures , + blackouts, denies falls , previous detox 1 yr ago . utox + cocaine cocaine use 20 -30 $ /day denies ivdu tobacco : 1/2 ppd denies nrt pmhx : hiv + ( dx 1994 ,clinic: [facility]) does not take meds , htn meds : amlodipine 10 mg qd has meds- 07/16/18 fill psych meds : seroquel, remeron, lexapro, buspar, hydroxzine psych : depression , denies current SI / Hi pshx : denies - Ebola screening Have you traveled outside of the country in the last 21 days: No Have you had contact with anyone from an Ebola affected area: No Have you been sick,other than usual withdrawal symptoms: No Do you have a fever: No - Review of Systems Constitutional: See HPI EENT: reports: See HPI Respiratory: reports: No Symptoms reported Cardiac: reports: No Symptoms Reported GI: reports: No Symptoms Reported : reports: No Symptoms Reported Musculoskeletal: reports: No Symptoms Reported Integumentary: reports: No Symptoms Reported Neuro: reports: No Symptoms reported Psychiatric: reports: Judgement Intact (see hpi), Mood/Affect Appropiate, Orientated x3, other Patient History - Patient Medical History Hx Anemia: No Hx Asthma: No Hx Chronic Obstructive Pulmonary Disease (COPD): No Hx Cancer: No Hx Cardiac Disorders: No Hx Congestive Heart Failure: No Hx Hypertension: Yes (ON MEDS) Hx Hypercholesterolemia: No Hx Pacemaker: No HX Cerebrovascular Accident: No Hx Seizures: No Hx Dementia: No Hx Diabetes: No Hx Gastrointestinal Disorders: Yes (Patient reported history of acid reflux) Hx Liver Disease: No Hx Genitourinary Disorders: No Hx Sexually Transmitted Disorders: No Hx Renal Disease (ESRD): No Hx Thyroid Disease: No Hx Human Immunodeficiency Virus (HIV): Yes Hx Hepatitis C: No Hx Depression: Yes Hx Suicide Attempt: No (No suicidal ideation or attempts of suicide) Hx Bipolar Disorder: No Hx Schizophrenia: No - Patient Surgical History Past Surgical History: No Hx Neurologic Surgery: No Hx Cataract Extraction: No Hx Cardiac Surgery: No Hx Lung Surgery: No Hx Breast Surgery: No Hx Breast Biopsy: No Hx Abdominal Surgery: No Hx Appendectomy: No Hx Cholecystectomy: No Hx Genitourinary Surgery: No Hx Section: No Hx Orthopedic Surgery: No Anesthesia Reaction: No - Smoking Cessation Smoking history: Former smoker Have you smoked in the past 12 months: No Aproximately how many cigarettes per day: 10 If you are a former smoker, when did you quit?: 5YRS Cigars Per Day: 0 Hx Chewing Tobacco Use: No Initiated information on smoking cessation: No Family Disease History - Family Disease History Family History: Denies Admission Physical Exam BHS - Vital Signs Vital Signs: Vital Signs - 24 hr 07/24/18 11:14 Temperature 98.0 F Pulse Rate 88 Respiratory 18 Rate Blood Pressure 120/94 - Physical General Appearance: Yes: No Apparent Distress, Nourished, Appropriately Dressed HEENTM: Yes: Within Normal Limits, EOMI, Hearing grossly Normal, Normal ENT Inspection, Normocephalic, Normal Voice, ROBERT, Pharynx Normal, Other (myopia - has glasses) Respiratory: Yes: Within Normal Limits, Chest Non-Tender, Lungs Clear, Normal Breath Sounds, No Respiratory Distress, No Accessory Muscle Use Neck: Yes: Within Normal Limits, No masses,lesions,Nodules, Trachea in good position Cardiology: Yes: Within Normal Limits, Regular Rhythm, Regular Rate Abdominal: Yes: Within Normal Limits, Normal Bowel Sounds, Non Tender, Flat, Soft Genitourinary: Yes: Within Normal Limits Back: Yes: Within Normal Limits, Normal Inspection Musculoskeletal: Yes: Within Normal Limits, full range of Motion, Gait Steady, Pelvis Stable Extremities: Yes: Within Normal Limits, Normal Capillary Refill, Normal Inspection, Normal Range of Motion, Non-Tender Neurological: Yes: Within Normal Limits, Fully Oriented, Alert, Motor Strength 5 /5, Normal Mood/Affect, Normal Response Integumentary: Yes: Within Normal Limits, Normal Color, Dry, Warm - Diagnostic (1) Alcohol dependence with uncomplicated withdrawal Current Visit: No Status: Acute (2) Cocaine dependence Current Visit: No Status: Chronic Qualifiers: Substance use status: uncomplicated Qualified Code(s): F14.20 - Cocaine dependence, uncomplicated BHS Breath Alcohol Content Breath Alcohol Content: 0 Urine Drug Screen - Results Drug Screen Negative: No Urine Drug Screen Results: ARISTEO-Cocaine
[2018-07-24] MEDS ORDERED: MENTHOL/PHENOL 1 EACH UD MM PRN (12:04)
[2018-07-24] MEDS ORDERED: MAGNESIUM HYDROX 2400MG/30ML ORAL SUSPENSION 30 ML CUP PO PRN (12:04)
[2018-07-24] MEDS ORDERED: ACETAMINOPHEN 325 MG TABLET (FP) PO PRN (12:04)
[2018-07-24] MEDS ORDERED: guaiFENesin/D-METHORPHAN HB 10 ML UNIT-DOSE CUPS PO PRN (12:04)
[2018-07-24] MEDS ORDERED: P-EPHED 60MG/TRIPROLIDI 2.5MG TABLET PO PRN (12:04)
[2018-07-24] MEDS ORDERED: IBUPROFEN 400 MG TABLET (FP) PO PRN (12:04)
[2018-07-24] MEDS ORDERED: MAG HYDROX/AL HYDROX/SIMETH 30 ML UNIT-DOSE CUP PO PRN (12:04)
[2018-07-24] MEDS ORDERED: MAGNESIUM CITRATE 300 ML BOTTLE PO PRN (12:04)
[2018-07-24] MEDS: chlordiazePOXIDE HCL 25 MG CAPSULE PO PRN ×2 (15:16→19:48)
[2018-07-24] MEDS: chlordiazePOXIDE HCL 25 MG CAPSULE PO SCH ×2 (17:15→22:39)
[2018-07-24] MEDS: THIAMINE HCL 100 MG TABLET (FP) PO SCH (22:39)
[2018-07-24] MEDS: MELATONIN 5 MG TABLETS PO PRN (22:40)
[2018-07-25] MEDS: chlordiazePOXIDE HCL 25 MG CAPSULE PO SCH ×4 (05:47→22:23)
[2018-07-25 10:03] LABS: HEMATOCRIT 44.6 % (35.4-49); HEMOGLOBIN 14.5 GM/dL (11.7-16.9); MCH 29.5 pg (25.7-33.7); MCHC 32.6 g/dl (32.0-35.9); MEAN CELL VOLUME 90.4 fl (80-96); PLATELET COUNT 251 K/MM3 (134-434); RBC 4.93 M/mm3 (4.00-5.60); RDW 13.8 % (11.9-15.9); WHITE BLOOD COUNT 5.2 K/mm3 (4.0-10.0)
[2018-07-25] MEDS: amLODIPine BESYLATE 10 MG TABLET (FP) PO SCH (10:14)
[2018-07-25] MEDS: PRENATAL VITAMINS W/ FOLIC ACID TABLET (FP) PO SCH (10:15)
[2018-07-25 10:19] LABS: URINE APPEARANCE CLEAR; URINE BILIRUBIN NEGATIVE (<2.0 mg/dL); URINE COLOR LTYELLOW; URINE GLUCOSE (UA) NEGATIVE (NEGATIVE); URINE KETONE NEGATIVE (NEGATIVE); URINE LEUK ESTERASE NEGATIVE (NEGATIVE); URINE NITRITE NEGATIVE (NEGATIVE); URINE PROTEIN NEGATIVE (NEGATIVE); URINE UROBILINOGEN NEGATIVE mg/dL (0.2-1.0)
[2018-07-25 10:57] LABS: ALBUMIN 3.5 g/dl (3.4-5.0); ALK PHOS 62 U/L (45-117); ANION GAP 7 MMOL/L (8-16); BILIRUBIN,TOTAL 0.4 mg/dL (0.2-1); BLOOD UREA NITROGEN 17 mg/dL (7-18); CALCIUM 9.4 mg/dL (8.5-10.1); CHLORIDE 108 mmol/L (98-107); CO2 26 mmol/L (21-32); CREATININE 1.3 mg/dL (0.55-1.3); GLUCOSE,RANDOM 95 mg/dL (74-106); POTASSIUM 4.5 mmol/L (3.5-5.1); SGOT/AST 24 U/L (15-37); SGPT/ALT 24 U/L (13-61); SODIUM 141 mmol/L (136-145); TOT PROT 7.8 g/dl (6.4-8.2)
--- NOTE | 2018-07-25 13:46 | PN ---
S CIWA - CIWA Score Nausea/Vomitin Muscle Tremors: 4-Moderate,w/Arms Extend Anxiety: 4-Mod. Anxious/Guarded Agitation: 4-Moderately Restless Paroxysmal Sweats: 3 Orientation: 0-Oriented Tacttile Disturbances: 0-None Auditory Disturbances: 0-None Visual Disturbances: 0-None Headache: 0-None Present CIWA-Ar Total Score: 18 [facility] Progress Note (SOAP) Subjective: Tremor, sweating, interrupted sleep Objective: 07/25/18 13:41 Last Vital Signs Temp Pulse Resp BP Pulse Ox 97.6 F 84 18 112/83 07/25/18 13:31 07/25/18 13:31 07/25/18 13:31 07/25/18 13:31 Laboratory Tests 07/25/18 07/25/18 07/25/18 06:00 06:00 06:00 WBC 5.2 RBC 4.93 Hgb 14.5 Hct 44.6 D MCV 90.4 MCH 29.5 MCHC 32.6 RDW 13.8 Plt Count 251 MPV 10.0 D Sodium 141 Potassium 4.5 Chloride 108 H Carbon Dioxide 26 Anion Gap 7 L BUN 17 Creatinine 1.3 Creat Clearance w eGFR 57.53 Random Glucose 95 Calcium 9.4 Total Bilirubin 0.4 AST 24 ALT 24 Alkaline Phosphatase 62 Total Protein 7.8 Albumin 3.5 Urine Color Urine Appearance Urine pH Ur Specific [place] Urine Protein Urine Glucose (UA) Urine Ketones Urine Blood Urine Nitrite Urine Bilirubin Urine Urobilinogen Ur Leukocyte Esterase RPR Titer Nonreactive 07/25/18 08:30 WBC RBC Hgb Hct MCV MCH MCHC RDW Plt Count MPV Sodium Potassium Chloride Carbon Dioxide Anion Gap BUN Creatinine Creat Clearance w eGFR Random Glucose Calcium Total Bilirubin AST ALT Alkaline Phosphatase Total Protein Albumin Urine Color Ltyellow Urine Appearance Clear Urine pH 6.0 Ur Specific [place] 1.018 Urine Protein Negative Urine Glucose (UA) Negative Urine Ketones Negative Urine Blood Negative Urine Nitrite Negative Urine Bilirubin Negative Urine Urobilinogen Negative Ur Leukocyte Esterase Negative RPR Titer Labs reviewed: creatinine 1.3, GFR 57.53 Assessment: 07/25/18 13:43 Withdrawal sxs Noted with azotemia Plan: Continue detox Azotemia: encouraged PO water intake
--- NOTE | 2018-07-25 14:36 | CONSULT ---
[facility] Psychiatric Consult - Data Date of interview: 07/25/18 Admission source: [facility] Identifying data: Readmission to [address] for this 51 y/o AA male seeking detoxification treatment for crack/cocaine dependence.Patient is single without children,domiciled,unemployed and supported on SSI benefits. Substance Abuse History: Discussed with the patient in this session.Mr Mccord admits to consuming 2 pints of vodka daily and spending 20-30 dollars a day on crack. Endorses many years of abuse. History of past detox/rehab treatments at various facilities.ZSmokes 1/2 pack of cigarettes daily. Medical History: HIV infection since 1994 (on ART medications),HTN,withdrawal related seizures and neuropathy. Psychiatric History: Patient denies history of psychiatric hospitalizations.Only outpatient psychiatric care for past five years. Reportedly diagnosed with MDD and Anxiety Disorder. Mr Mccord states that he is followed at [facility] clinic for medication management consisting of remeron (dose not recalled) + seroquel 200 mg po hs/100 mg am.No history of suicide attempts. Physical/Sexual Abuse/Trauma History: Patient denies. Additional Comment: Urine Drug Screen Results: ARISTEO-Cocaine.Noted. Mental Status Exam - Mental Status Exam Alert and Oriented to: Time, Place, Person Cognitive Function: Good Patient Appearance: Well Groomed Mood: Withdrawn Affect: Appropriate, Normal Range Patient Behavior: Cooperative Speech Pattern: Clear, Appropriate Voice Loudness: Normal Thought Process: Goal Oriented Thought Disorder: Not Present Hallucinations: Denies Suicidal Ideation: Denies Homicidal Ideation: Denies Insight/Judgement: Poor Sleep: Poorly, Difficulty falling asleep Appetite: Good Muscle strength/Tone: Normal Gait/Station: Normal Psychiatric Findings - Problem List ([place] 1, 2,3) (1) Alcohol dependence with uncomplicated withdrawal Current Visit: Yes Status: Acute (2) Cocaine dependence Current Visit: Yes Status: Acute Qualifiers: Substance use status: uncomplicated Qualified Code(s): F14.20 - Cocaine dependence, uncomplicated (3) Substance induced mood disorder Current Visit: Yes Status: Acute (4) MDD (major depressive disorder) Current Visit: Yes Status: Chronic Comment: As per self-report and records. (5) Insomnia Current Visit: Yes Status: Acute - Initial Treatment Plan Initial Treatment Plan: Psychoeducation.Detoxification.Sleep hygiene.Medications reconciled as follows : seroquel 150 mg po hs (reduced) + remeron 15 mg po hs + lexapro 10 mg po daily.Side effects/benefits of these medications are revisited with the patient.Mr Mccord agrees to this careplan.Observation.
[2018-07-25] MEDS: chlordiazePOXIDE HCL 25 MG CAPSULE PO PRN (14:42)
[2018-07-25] MEDS ORDERED: QUEtiapine FUMARATE 100 MG TABLET (FP) ONE (20:36)
[2018-07-25] MEDS ORDERED: QUEtiapine FUMARATE 50 MG TABLET PO SCH (22:00)
[2018-07-25] MEDS: THIAMINE HCL 100 MG TABLET (FP) PO SCH (22:23)
[2018-07-25] MEDS: QUEtiapine FUMARATE 50 MG TABLET PO SCH (22:24)
[2018-07-25] MEDS: MELATONIN 5 MG TABLETS PO PRN (22:24)
[2018-07-26] MEDS: chlordiazePOXIDE HCL 25 MG CAPSULE PO SCH ×2 (05:40→10:27)
[2018-07-26] MEDS: ESCITALOPRAM OXALATE 10 MG TABLET (FP) PO SCH (10:27)
[2018-07-26] MEDS: amLODIPine BESYLATE 10 MG TABLET (FP) PO SCH (10:27)
[2018-07-26] MEDS: PRENATAL VITAMINS W/ FOLIC ACID TABLET (FP) PO SCH (10:27)
--- NOTE | 2018-07-26 14:36 | PN ---
[facility] CIWA - CIWA Score Nausea/Vomitin-Mild Nausea/No Vomiting Muscle Tremors: 3 Anxiety: 3 Agitation: 3 Paroxysmal Sweats: 3 Orientation: 0-Oriented Tacttile Disturbances: 0-None Auditory Disturbances: 0-None Visual Disturbances: 0-None Headache: 1-Very Mild CIWA-Ar Total Score: 14 [facility] Progress Note (SOAP) Subjective: Tremor, chills, interrupted sleep Objective: 07/26/18 14:33 Last Vital Signs Temp Pulse Resp BP Pulse Ox 97 F L 73 20 102/66 07/26/18 13:12 07/26/18 13:12 07/26/18 13:12 07/26/18 13:12 Laboratory Tests 07/25/18 07/25/18 07/25/18 06:00 06:00 06:00 WBC 5.2 RBC 4.93 Hgb 14.5 Hct 44.6 D MCV 90.4 MCH 29.5 MCHC 32.6 RDW 13.8 Plt Count 251 MPV 10.0 D Sodium 141 Potassium 4.5 Chloride 108 H Carbon Dioxide 26 Anion Gap 7 L BUN 17 Creatinine 1.3 Creat Clearance w eGFR 57.53 Random Glucose 95 Calcium 9.4 Total Bilirubin 0.4 AST 24 ALT 24 Alkaline Phosphatase 62 Total Protein 7.8 Albumin 3.5 Urine Color Urine Appearance Urine pH Ur Specific [place] Urine Protein Urine Glucose (UA) Urine Ketones Urine Blood Urine Nitrite Urine Bilirubin Urine Urobilinogen Ur Leukocyte Esterase RPR Titer Nonreactive 07/25/18 08:30 WBC RBC Hgb Hct MCV MCH MCHC RDW Plt Count MPV Sodium Potassium Chloride Carbon Dioxide Anion Gap BUN Creatinine Creat Clearance w eGFR Random Glucose Calcium Total Bilirubin AST ALT Alkaline Phosphatase Total Protein Albumin Urine Color Ltyellow Urine Appearance Clear Urine pH 6.0 Ur Specific [place] 1.018 Urine Protein Negative Urine Glucose (UA) Negative Urine Ketones Negative Urine Blood Negative Urine Nitrite Negative Urine Bilirubin Negative Urine Urobilinogen Negative Ur Leukocyte Esterase Negative RPR Titer Labs reviewed Assessment: 07/26/18 14:36 Withdrawal sxs Plan: Continue detox
[2018-07-26] MEDS: chlordiazePOXIDE HCL 25 MG CAPSULE PO PRN (15:47)
[2018-07-26] MEDS: chlordiazePOXIDE 5 MG CAPSULE PO SCH ×2 (17:20→22:19)
[2018-07-26] MEDS: MELATONIN 5 MG TABLETS PO PRN (22:19)
[2018-07-26] MEDS: THIAMINE HCL 100 MG TABLET (FP) PO SCH (22:19)
[2018-07-26] MEDS: QUEtiapine FUMARATE 50 MG TABLET PO SCH (22:19)
[2018-07-27] MEDS: chlordiazePOXIDE 5 MG CAPSULE PO SCH ×2 (05:45→10:24)
[2018-07-27] MEDS: ESCITALOPRAM OXALATE 10 MG TABLET (FP) PO SCH (10:24)
[2018-07-27] MEDS: amLODIPine BESYLATE 10 MG TABLET (FP) PO SCH (10:24)
[2018-07-27] MEDS: PRENATAL VITAMINS W/ FOLIC ACID TABLET (FP) PO SCH (10:24)
--- NOTE | 2018-07-27 16:23 | PN ---
[facility] Progress Note (SOAP) Subjective: Tremor, interrupted sleep Objective: 07/27/18 16:12 Last Vital Signs Temp Pulse Resp BP Pulse Ox 99.2 F 97 H 18 126/84 07/27/18 14:14 07/27/18 14:14 07/27/18 14:14 07/27/18 14:14 Laboratory Tests 07/25/18 07/25/18 07/25/18 06:00 06:00 06:00 WBC 5.2 RBC 4.93 Hgb 14.5 Hct 44.6 D MCV 90.4 MCH 29.5 MCHC 32.6 RDW 13.8 Plt Count 251 MPV 10.0 D Sodium 141 Potassium 4.5 Chloride 108 H Carbon Dioxide 26 Anion Gap 7 L BUN 17 Creatinine 1.3 Creat Clearance w eGFR 57.53 Random Glucose 95 Calcium 9.4 Total Bilirubin 0.4 AST 24 ALT 24 Alkaline Phosphatase 62 Total Protein 7.8 Albumin 3.5 Urine Color Urine Appearance Urine pH Ur Specific [place] Urine Protein Urine Glucose (UA) Urine Ketones Urine Blood Urine Nitrite Urine Bilirubin Urine Urobilinogen Ur Leukocyte Esterase RPR Titer Nonreactive 07/25/18 08:30 WBC RBC Hgb Hct MCV MCH MCHC RDW Plt Count MPV Sodium Potassium Chloride Carbon Dioxide Anion Gap BUN Creatinine Creat Clearance w eGFR Random Glucose Calcium Total Bilirubin AST ALT Alkaline Phosphatase Total Protein Albumin Urine Color Ltyellow Urine Appearance Clear Urine pH 6.0 Ur Specific [place] 1.018 Urine Protein Negative Urine Glucose (UA) Negative Urine Ketones Negative Urine Blood Negative Urine Nitrite Negative Urine Bilirubin Negative Urine Urobilinogen Negative Ur Leukocyte Esterase Negative RPR Titer Labs reviewed: azotemia Assessment: 07/27/18 16:13 Withdrawal sxs Noted with mild azotemia Plan: Continue detox Azotemia: encouraged PO water hydration
--- NOTE | 2018-07-27 16:26 | PN ---
[facility] Progress Note Note: Psychiatry Attending's note (follow-up) : Approached by patient. Reason : discussion of medications. Mr Mccord is anxious and dysphoric. Feels that his doses are not optimal to his needs. Wants to resume seroquel 100 mg/am + 200 mg/hs. Vitals are normal.Gait remains steady. Patient ambulatory. Intervention : Seroquel is raised to 100 mg po am (first dose NOW) + 200 mg po hs. Remeron 15 mg is added to the regimen. Patient agrees. Will continue to follow.
[2018-07-27] MEDS: chlordiazePOXIDE HCL 10 MG CAPSULE PO SCH ×2 (16:45→22:12)
[2018-07-27] MEDS: QUEtiapine FUMARATE 100 MG TABLET (FP) PO SCH (16:45)
[2018-07-27] MEDS: THIAMINE HCL 100 MG TABLET (FP) PO SCH (22:12)
[2018-07-27] MEDS: QUEtiapine FUMARATE 200 MG TABLET PO SCH (22:12)
[2018-07-27] MEDS: MIRTAZAPINE 15 MG TABLET (FP) PO SCH (22:12)
[2018-07-28] MEDS: chlordiazePOXIDE HCL 10 MG CAPSULE PO SCH ×2 (06:05→11:50)
[2018-07-28] MEDS: amLODIPine BESYLATE 10 MG TABLET (FP) PO SCH (10:27)
[2018-07-28] MEDS: ESCITALOPRAM OXALATE 10 MG TABLET (FP) PO SCH (10:27)
[2018-07-28] MEDS: QUEtiapine FUMARATE 100 MG TABLET (FP) PO SCH (10:27)
[2018-07-28] MEDS: PRENATAL VITAMINS W/ FOLIC ACID TABLET (FP) PO SCH (10:27)
[2018-07-28] MEDS ORDERED: COLLOIDAL OATMEAL 1 BAR EACH TP PRN (10:31)
--- NOTE | 2018-07-28 16:30 | PN ---
S Progress Note (SOAP) Subjective: alert,irritable,anxious,interrupted sleep Objective: 07/28/18 16:29 Vital Signs Temperature 96.9 F L 07/28/18 15:37 Pulse Rate 89 07/28/18 15:37 Respiratory Rate 16 07/28/18 15:37 Blood Pressure 103/66 07/28/18 15:37 O2 Sat by Pulse Oximetry (%) Assessment: 07/28/18 16:29 withdrawal symptom Plan: continue detox
[2018-07-28] MEDS ORDERED: diphenhydrAMINE HCL 25 MG CAPSULE (FP) PO PRN (17:11)
[2018-07-28] MEDS ORDERED: diphenhydrAMINE HCL 25 MG CAPSULE (FP) PO ONE (17:15)
--- NOTE | 2018-07-28 19:57 | PN ---
S Progress Note Note: patient stated having a scratching throat with itching after eating the food no difficulty in breathing Vital Signs Temperature 98.2 F 07/28/18 18:00 Pulse Rate 100 H 07/28/18 18:00 Respiratory Rate 22 H 07/28/18 18:00 Blood Pressure 128/75 07/28/18 18:00 O2 Sat by Pulse Oximetry (%) responded to benadryl 50 mgs po benadryl 25 mgs po q 6hrs prn for itching close monitoring
[2018-07-28] MEDS: QUEtiapine FUMARATE 200 MG TABLET PO SCH (22:11)
[2018-07-28] MEDS: MIRTAZAPINE 15 MG TABLET (FP) PO SCH (22:11)
[2018-07-28] MEDS: THIAMINE HCL 100 MG TABLET (FP) PO SCH (22:11)
[2018-07-28] MEDS: hydrOXYzine PAMOATE 50 MG CAPSULE (FP) PO PRN (22:13)
[2018-07-29] MEDS: QUEtiapine FUMARATE 100 MG TABLET (FP) PO SCH (10:03)
[2018-07-29] MEDS: PRENATAL VITAMINS W/ FOLIC ACID TABLET (FP) PO SCH (10:03)
[2018-07-29] MEDS: ESCITALOPRAM OXALATE 10 MG TABLET (FP) PO SCH (10:03)
[2018-07-29] MEDS: amLODIPine BESYLATE 10 MG TABLET (FP) PO SCH (10:03)
--- NOTE | 2018-07-29 16:57 | PN ---
[facility] Progress Note (SOAP) Subjective: Denies any complaints; appears anxious Objective: 07/29/18 16:56 Last Vital Signs Temp Pulse Resp BP Pulse Ox 97.1 F L 84 18 127/88 07/29/18 09:41 07/29/18 09:41 07/29/18 09:41 07/29/18 09:41 Laboratory Tests 07/25/18 07/25/18 07/25/18 06:00 06:00 06:00 WBC 5.2 RBC 4.93 Hgb 14.5 Hct 44.6 D MCV 90.4 MCH 29.5 MCHC 32.6 RDW 13.8 Plt Count 251 MPV 10.0 D Sodium 141 Potassium 4.5 Chloride 108 H Carbon Dioxide 26 Anion Gap 7 L BUN 17 Creatinine 1.3 Creat Clearance w eGFR 57.53 Random Glucose 95 Calcium 9.4 Total Bilirubin 0.4 AST 24 ALT 24 Alkaline Phosphatase 62 Total Protein 7.8 Albumin 3.5 Urine Color Urine Appearance Urine pH Ur Specific [place] Urine Protein Urine Glucose (UA) Urine Ketones Urine Blood Urine Nitrite Urine Bilirubin Urine Urobilinogen Ur Leukocyte Esterase RPR Titer Nonreactive 07/25/18 08:30 WBC RBC Hgb Hct MCV MCH MCHC RDW Plt Count MPV Sodium Potassium Chloride Carbon Dioxide Anion Gap BUN Creatinine Creat Clearance w eGFR Random Glucose Calcium Total Bilirubin AST ALT Alkaline Phosphatase Total Protein Albumin Urine Color Ltyellow Urine Appearance Clear Urine pH 6.0 Ur Specific [place] 1.018 Urine Protein Negative Urine Glucose (UA) Negative Urine Ketones Negative Urine Blood Negative Urine Nitrite Negative Urine Bilirubin Negative Urine Urobilinogen Negative Ur Leukocyte Esterase Negative RPR Titer Labs reviewed Assessment: 07/29/18 16:56 Withdrawal sxs Plan: Continue detox Encouraged PO water intake
[2018-07-29] MEDS: QUEtiapine FUMARATE 200 MG TABLET PO SCH (22:32)
[2018-07-29] MEDS: THIAMINE HCL 100 MG TABLET (FP) PO SCH (22:32)
[2018-07-29] MEDS: MIRTAZAPINE 15 MG TABLET (FP) PO SCH (22:32)
[2018-07-29] MEDS: hydrOXYzine PAMOATE 50 MG CAPSULE (FP) PO PRN (22:34)
--- NOTE | 2018-07-30 09:14 | DS ---
[facility] Detox Discharge Summary Admission Date: 07/24/18 Discharge Date: 07/30/18 - History Present History: Alcohol Dependence, Cocaine Dependence Additional Comments: Patient medically stable. Patient to follow up with out patient referrals. Patient to follow up with primary care provider within a week. - Physical Exam Results Vital Signs: Vital Signs Temperature 96.8 F L 07/30/18 06:20 Pulse Rate 72 07/30/18 06:20 Respiratory Rate 18 07/30/18 06:30 Blood Pressure 96/60 07/30/18 06:20 O2 Sat by Pulse Oximetry (%) Pertinent Admission Physical Exam Findings: Laboratory Last Values WBC 5.2 K/mm3 (4.0-10.0) 07/25/18 06:00 RBC 4.93 M/mm3 (4.00-5.60) 07/25/18 06:00 Hgb 14.5 GM/dL (11.7-16.9) 07/25/18 06:00 Hct 44.6 % (35.4-49) D 07/25/18 06:00 MCV 90.4 fl (80-96) 07/25/18 06:00 MCH 29.5 pg (25.7-33.7) 07/25/18 06:00 MCHC 32.6 g/dl (32.0-35.9) 07/25/18 06:00 RDW 13.8 % (11.9-15.9) 07/25/18 06:00 Plt Count 251 K/MM3 (134-434) 07/25/18 06:00 MPV 10.0 fl (7.5-11.1) D 07/25/18 06:00 Sodium 141 mmol/L (136-145) 07/25/18 06:00 Potassium 4.5 mmol/L (3.5-5.1) 07/25/18 06:00 Chloride 108 mmol/L (98-107) H 07/25/18 06:00 Carbon Dioxide 26 mmol/L (21-32) 07/25/18 06:00 Anion Gap 7 MMOL/L (8-16) L 07/25/18 06:00 BUN 17 mg/dL (7-18) 07/25/18 06:00 Creatinine 1.3 mg/dL (0.55-1.3) 07/25/18 06:00 Creat Clearance w eGFR 57.53 (>60) 07/25/18 06:00 Random Glucose 95 mg/dL (74-106) 07/25/18 06:00 Calcium 9.4 mg/dL (8.5-10.1) 07/25/18 06:00 Total Bilirubin 0.4 mg/dL (0.2-1) 07/25/18 06:00 AST 24 U/L (15-37) 07/25/18 06:00 ALT 24 U/L (13-61) 07/25/18 06:00 Alkaline Phosphatase 62 U/L (45-117) 07/25/18 06:00 Total Protein 7.8 g/dl (6.4-8.2) 07/25/18 06:00 Albumin 3.5 g/dl (3.4-5.0) 07/25/18 06:00 Urine Color Ltyellow 07/25/18 08:30 Urine Appearance Clear 07/25/18 08:30 Urine pH 6.0 (5.0-8.0) 07/25/18 08:30 Ur Specific [place] 1.018 (1.010-1.035) 07/25/18 08:30 Urine Protein Negative (NEGATIVE) 07/25/18 08:30 Urine Glucose (UA) Negative (NEGATIVE) 07/25/18 08:30 Urine Ketones Negative (NEGATIVE) 07/25/18 08:30 Urine Blood Negative (NEGATIVE) 07/25/18 08:30 Urine Nitrite Negative (NEGATIVE) 07/25/18 08:30 Urine Bilirubin Negative (<2.0 mg/dL) 07/25/18 08:30 Urine Urobilinogen Negative mg/dL (0.2-1.0) 07/25/18 08:30 Ur Leukocyte Esterase Negative (NEGATIVE) 07/25/18 08:30 RPR Titer Nonreactive (NONREACTIVE) 07/25/18 06:00 - Treatment Hospital Course: Detox Protocol Followed, Detoxed Safely, Responded well, Discharged Condition Good Patient has Accepted a Rehab Referral to: Out patient [facility] - Medication Discharge Medications: Ambulatory Orders Elviteg/Cob/Emtri/Tenof Alafen [Genvoya Tablet] 1 each PO DAILY 12/29/17 Quetiapine Fumarate [Seroquel] 100 tab PO AM 03/16/18 Amlodipine Besylate [Norvasc -] 10 mg PO DAILY #30 tablet 01/13/18 Buspirone HCl [Buspar -] 10 mg PO BID 07/24/18 Escitalopram Oxalate [Lexapro -] 10 mg PO DAILY 07/24/18 Hydroxyzine HCl 25 mg PO HS 07/24/18 Mirtazapine [Remeron -] 30 mg PO HS 07/24/18 Quetiapine Fumarate [Seroquel -] 200 mg PO HS 07/24/18 Escitalopram Oxalate [Lexapro -] 10 mg PO DAILY #30 tablet 07/28/18 Mirtazapine [Remeron -] 15 mg PO HS #30 tablet 07/28/18 Quetiapine Fumarate [Seroquel -] 200 mg PO HS #30 tab 07/28/18 Amlodipine Besylate [Norvasc -] 10 mg PO DAILY #30 tablet 07/30/18 - Diagnosis (1) Alcohol dependence with uncomplicated withdrawal Current Visit: Yes Status: Acute (2) Cocaine dependence Current Visit: Yes Status: Acute Qualifiers: Substance use status: uncomplicated Qualified Code(s): F14.20 - Cocaine dependence, uncomplicated (3) GERD (gastroesophageal reflux disease) Current Visit: Yes Status: Chronic (4) Human immunodeficiency virus infection Current Visit: Yes Status: Chronic - AMA Did Patient Leave Against Medical Advice: No
[2018-07-30] MEDS: amLODIPine BESYLATE 10 MG TABLET (FP) PO SCH (09:43)
[2018-07-30] MEDS: PRENATAL VITAMINS W/ FOLIC ACID TABLET (FP) PO SCH (09:43)
[2018-07-30] MEDS: ESCITALOPRAM OXALATE 10 MG TABLET (FP) PO SCH (09:43)
[2018-07-30] MEDS: QUEtiapine FUMARATE 100 MG TABLET (FP) PO SCH (09:43)
--- NOTE | 2018-07-30 16:58 | HP ---
Psychiatrist Admission - Data Date of interview: 07/30/18 Admission source: [address] [place] [address] detox Identifying data: This is the first admission to [address] [place] [address] inpatient rehabilitation for this 53 years old single SVEN wild,resides in [facility], supported by DO. Medical History: HIV+. Psychiatric History: Current meds:Remeron 30 mg po hs,seroquel 100 mg po bid, Vital Signs: Vital Signs - 24 hr 07/29/18 07/29/18 07/30/18 18:00 22:00 00:30 Temperature 97.7 F 97.8 F Pulse Rate 97 H 83 Respiratory 18 18 18 Rate Blood Pressure 124/83 129/90 07/30/18 07/30/18 07/30/18 03:30 06:20 06:30 Temperature 96.8 F L Pulse Rate 72 Respiratory 18 18 18 Rate Blood Pressure 96/60 07/30/18 07/30/18 07/30/18 09:29 13:31 15:53 Temperature 97.3 F L 97.9 F 98.2 F Pulse Rate 92 H 95 H 95 H Respiratory 18 18 18 Rate Blood Pressure 131/87 110/77 123/79 Allergies/Adverse Reactions: Allergies Allergy/AdvReac Type Severity Reaction Status Date / Time fish derived Allergy Severe Swelling Verified 07/26/18 18:27 shellfish derived Allergy Severe Swelling Verified 07/26/18 18:27 No Known Drug Allergies Allergy Verified 07/24/18 13:05 seafood Allergy Severe Swelling Uncoded 07/24/18 13:05 Concur with the findings of this exam: Yes - Substance Abuse/Tx History Hx Alcohol Use: Yes Hx Substance Use: Yes Substance Use Type: Alcohol, Cocaine, Marijuana Hx Substance Use Treatment: Yes (this is his first inpatient rehabilitation) Mental Status Exam - Mental Status Exam Alert and Oriented to: Time, Place, Person Cognitive Function: Grossly Intact Patient Appearance: Unkempt Mood: Sad, Anxious Affect: Mood Congruent, Labile Patient Behavior: Cooperative Speech Pattern: Clear Voice Loudness: Normal Thought Process: Goal Oriented Thought Disorder: Not Present Hallucinations: Denies Suicidal Ideation: Denies Homicidal Ideation: Denies Insight/Judgement: Fair Sleep: Fair Appetite: Fair Muscle strength/Tone: Normal Gait/Station: Normal Psychiatric Findings - Problem List ([place] 1, 2,3) (1) Cocaine dependence Current Visit: Yes Status: Chronic Qualifiers: Substance use status: uncomplicated Qualified Code(s): F14.20 - Cocaine dependence, uncomplicated (2) Substance induced mood disorder Current Visit: Yes Status: Chronic (3) GERD (gastroesophageal reflux disease) Current Visit: Yes Status: Chronic (4) Human immunodeficiency virus infection Current Visit: Yes Status: Chronic (5) Alcohol dependence Current Visit: Yes Status: Chronic (6) Oral candidiasis Current Visit: Yes Status: Chronic (7) Cannabis dependence Current Visit: No Status: Chronic (8) Methamphetamine abuse Current Visit: No Status: Chronic - Initial Treatment Plan Initial Treatment Plan: Will monitor progress.
[2018-07-30] MEDS: MIRTAZAPINE 30 MG TABLET (FP) PO SCH (21:20)
[2018-07-30] MEDS: QUEtiapine FUMARATE 200 MG TABLET PO SCH (21:20)
[2018-07-30] MEDS: THIAMINE HCL 100 MG TABLET (FP) PO SCH (21:20)
[2018-07-31] MEDS: PRENATAL VITAMINS W/ FOLIC ACID TABLET (FP) PO SCH (09:53)
[2018-07-31] MEDS: ESCITALOPRAM OXALATE 10 MG TABLET (FP) PO SCH (09:53)
[2018-07-31] MEDS: QUEtiapine FUMARATE 100 MG TABLET (FP) PO SCH (09:53)
[2018-07-31] MEDS: amLODIPine BESYLATE 10 MG TABLET (FP) PO SCH (09:53)
[2018-07-31] MEDS: hydrOXYzine PAMOATE 50 MG CAPSULE (FP) PO PRN (09:54)
[2018-07-31] MEDS: QUEtiapine FUMARATE 200 MG TABLET PO SCH (21:25)
[2018-07-31] MEDS: MIRTAZAPINE 30 MG TABLET (FP) PO SCH (21:25)
[2018-07-31] MEDS: THIAMINE HCL 100 MG TABLET (FP) PO SCH (21:25)
[2018-08-01] MEDS: ESCITALOPRAM OXALATE 10 MG TABLET (FP) PO SCH (09:52)
[2018-08-01] MEDS: amLODIPine BESYLATE 10 MG TABLET (FP) PO SCH (09:52)
[2018-08-01] MEDS: PRENATAL VITAMINS W/ FOLIC ACID TABLET (FP) PO SCH (09:52)
[2018-08-01] MEDS: QUEtiapine FUMARATE 100 MG TABLET (FP) PO SCH (09:52)
--- NOTE | 2018-08-01 12:01 | PN ---
[facility] Progress Note Note: PT C/O RIGHT SHOULDER PAIN SINCE JANUARY 2018 DUE TO LIFTING OBJECT. REPORTS SAW HIS DOCTOR AND XRAY DONE SHOWED NOTHING. SAYS HE WAS SUPPOSED TO DO MRI OF SHOULDER BUT CAME TO DRUG TREATMENT INSTEAD. PT IS ALERT O X 3. NAD. EXAM; ACTIVE ROM ALL JOINTS AND RIGHT SHOULDER. Vital Signs - 24 hr 08/01/18 08/01/18 08/01/18 00:30 03:30 06:46 Temperature 98.9 F Pulse Rate 82 Respiratory 18 18 18 Rate Blood Pressure 122/88 08/01/18 10:00 Temperature Pulse Rate 92 H Respiratory Rate Blood Pressure 116/81 Laboratory Tests 07/25/18 07/25/18 07/25/18 06:00 06:00 06:00 WBC 5.2 RBC 4.93 Hgb 14.5 Hct 44.6 D MCV 90.4 MCH 29.5 MCHC 32.6 RDW 13.8 Plt Count 251 MPV 10.0 D Sodium 141 Potassium 4.5 Chloride 108 H Carbon Dioxide 26 Anion Gap 7 L BUN 17 Creatinine 1.3 Creat Clearance w eGFR 57.53 Random Glucose 95 Calcium 9.4 Total Bilirubin 0.4 AST 24 ALT 24 Alkaline Phosphatase 62 Total Protein 7.8 Albumin 3.5 Urine Color Urine Appearance Urine pH Ur Specific [place] Urine Protein Urine Glucose (UA) Urine Ketones Urine Blood Urine Nitrite Urine Bilirubin Urine Urobilinogen Ur Leukocyte Esterase RPR Titer Nonreactive 07/25/18 08:30 WBC RBC Hgb Hct MCV MCH MCHC RDW Plt Count MPV Sodium Potassium Chloride Carbon Dioxide Anion Gap BUN Creatinine Creat Clearance w eGFR Random Glucose Calcium Total Bilirubin AST ALT Alkaline Phosphatase Total Protein Albumin Urine Color Ltyellow Urine Appearance Clear Urine pH 6.0 Ur Specific [place] 1.018 Urine Protein Negative Urine Glucose (UA) Negative Urine Ketones Negative Urine Blood Negative Urine Nitrite Negative Urine Bilirubin Negative Urine Urobilinogen Negative Ur Leukocyte Esterase Negative RPR Titer IMPRESSION:RIGHT SHOULDER PAIN PLAN;NAPROSYN 500 MG PO BID FLEXERIL 10 MG PO TID
[2018-08-01] MEDS: NAPROXEN 500 MG TABLET (FP) PO SCH ×2 (12:20→21:27)
[2018-08-01] MEDS: CYCLOBENZAPRINE HCL 10 MG TABLET (FP) PO SCH ×2 (14:26→21:26)
[2018-08-01] MEDS: MIRTAZAPINE 30 MG TABLET (FP) PO SCH (21:26)
[2018-08-01] MEDS: THIAMINE HCL 100 MG TABLET (FP) PO SCH (21:27)
[2018-08-01] MEDS: QUEtiapine FUMARATE 200 MG TABLET PO SCH (21:27)
[2018-08-02] MEDS: CYCLOBENZAPRINE HCL 10 MG TABLET (FP) PO SCH ×3 (06:52→21:25)
[2018-08-02] MEDS: PRENATAL VITAMINS W/ FOLIC ACID TABLET (FP) PO SCH (10:01)
[2018-08-02] MEDS: NAPROXEN 500 MG TABLET (FP) PO SCH ×2 (10:01→21:25)
[2018-08-02] MEDS: amLODIPine BESYLATE 10 MG TABLET (FP) PO SCH (10:01)
[2018-08-02] MEDS: QUEtiapine FUMARATE 100 MG TABLET (FP) PO SCH (10:01)
[2018-08-02] MEDS: ESCITALOPRAM OXALATE 10 MG TABLET (FP) PO SCH (10:01)
[2018-08-02] MEDS: THIAMINE HCL 100 MG TABLET (FP) PO SCH (21:25)
[2018-08-02] MEDS: MIRTAZAPINE 30 MG TABLET (FP) PO SCH (21:25)
[2018-08-02] MEDS: QUEtiapine FUMARATE 200 MG TABLET PO SCH (21:25)
[2018-08-03] MEDS: CYCLOBENZAPRINE HCL 10 MG TABLET (FP) PO SCH ×3 (06:45→21:24)
[2018-08-03] MEDS: PRENATAL VITAMINS W/ FOLIC ACID TABLET (FP) PO SCH (09:39)
[2018-08-03] MEDS: amLODIPine BESYLATE 10 MG TABLET (FP) PO SCH (09:39)
[2018-08-03] MEDS: ESCITALOPRAM OXALATE 10 MG TABLET (FP) PO SCH (09:39)
[2018-08-03] MEDS: QUEtiapine FUMARATE 100 MG TABLET (FP) PO SCH (09:39)
[2018-08-03] MEDS: NAPROXEN 500 MG TABLET (FP) PO SCH ×2 (09:39→21:24)
[2018-08-03] MEDS: hydrOXYzine PAMOATE 50 MG CAPSULE (FP) PO PRN (09:40)
--- NOTE | 2018-08-03 15:08 | PN ---
[facility] Progress Note Note: Patient reports ongoing anxiety,mood instability,restlessness during the day.properties of Vistaril has been discussed with the patient .Vistaril 50 mg po q 4 hrs prn will be adjusted to 100 mg po tid.psychoeducation has been provided.
[2018-08-03] MEDS: hydrOXYzine PAMOATE 50 MG CAPSULE (FP) PO SCH ×2 (15:22→21:24)
--- NOTE | 2018-08-03 21:13 | PN ---
S Progress Note Note: C/o difficulty swallowing Difficulty increases when laying down. States it feels like my thrush is back. States hx HIV(+). Objective: Whitish patches on tongue and back of throat. No increased erythema. No pharyngeal swelling noted. Vital Signs Temperature 98.6 F 08/03/18 06:49 Pulse Rate 95 H 08/03/18 10:00 Respiratory Rate 18 08/03/18 06:49 Blood Pressure 110/71 08/03/18 10:00 O2 Sat by Pulse Oximetry (%) Assessment; Oral thrush Hx: HIV(+) Alcohol and crack remission. Plan: Continue rehab. Start mycelex troches.
[2018-08-03] MEDS: MIRTAZAPINE 30 MG TABLET (FP) PO SCH (21:24)
[2018-08-03] MEDS: QUEtiapine FUMARATE 200 MG TABLET PO SCH (21:24)
[2018-08-03] MEDS: THIAMINE HCL 100 MG TABLET (FP) PO SCH (21:36)
[2018-08-03] MEDS: CLOTRIMAZOLE 10 MG TROCHE (FP) PO SCH (22:16)
[2018-08-04] MEDS: CYCLOBENZAPRINE HCL 10 MG TABLET (FP) PO SCH ×3 (07:01→21:25)
[2018-08-04] MEDS: CLOTRIMAZOLE 10 MG TROCHE (FP) PO SCH ×5 (07:01→21:27)
[2018-08-04] MEDS: hydrOXYzine PAMOATE 50 MG CAPSULE (FP) PO SCH ×3 (07:01→21:25)
[2018-08-04] MEDS: PRENATAL VITAMINS W/ FOLIC ACID TABLET (FP) PO SCH (10:00)
[2018-08-04] MEDS: ESCITALOPRAM OXALATE 10 MG TABLET (FP) PO SCH (10:00)
[2018-08-04] MEDS: NAPROXEN 500 MG TABLET (FP) PO SCH ×2 (10:00→21:25)
[2018-08-04] MEDS: QUEtiapine FUMARATE 100 MG TABLET (FP) PO SCH (10:00)
[2018-08-04] MEDS: amLODIPine BESYLATE 10 MG TABLET (FP) PO SCH (10:00)
[2018-08-04] MEDS: MIRTAZAPINE 30 MG TABLET (FP) PO SCH (21:25)
[2018-08-04] MEDS: THIAMINE HCL 100 MG TABLET (FP) PO SCH (21:25)
[2018-08-04] MEDS: QUEtiapine FUMARATE 200 MG TABLET PO SCH (21:25)
[2018-08-05] MEDS: CYCLOBENZAPRINE HCL 10 MG TABLET (FP) PO SCH ×3 (06:26→21:23)
[2018-08-05] MEDS: hydrOXYzine PAMOATE 50 MG CAPSULE (FP) PO SCH ×3 (06:27→21:22)
[2018-08-05] MEDS: CLOTRIMAZOLE 10 MG TROCHE (FP) PO SCH ×5 (06:45→21:24)
[2018-08-05] MEDS: QUEtiapine FUMARATE 100 MG TABLET (FP) PO SCH (09:48)
[2018-08-05] MEDS: PRENATAL VITAMINS W/ FOLIC ACID TABLET (FP) PO SCH (09:48)
[2018-08-05] MEDS: NAPROXEN 500 MG TABLET (FP) PO SCH ×2 (09:48→21:23)
[2018-08-05] MEDS: ESCITALOPRAM OXALATE 10 MG TABLET (FP) PO SCH (09:48)
[2018-08-05] MEDS: amLODIPine BESYLATE 10 MG TABLET (FP) PO SCH (09:48)
[2018-08-05] MEDS: MIRTAZAPINE 30 MG TABLET (FP) PO SCH (21:23)
[2018-08-05] MEDS: QUEtiapine FUMARATE 200 MG TABLET PO SCH (21:23)
[2018-08-05] MEDS: THIAMINE HCL 100 MG TABLET (FP) PO SCH (21:23)
[2018-08-06] MEDS: CLOTRIMAZOLE 10 MG TROCHE (FP) PO SCH ×5 (06:41→21:20)
[2018-08-06] MEDS: hydrOXYzine PAMOATE 50 MG CAPSULE (FP) PO SCH ×3 (06:42→21:20)
[2018-08-06] MEDS: CYCLOBENZAPRINE HCL 10 MG TABLET (FP) PO SCH ×3 (06:42→21:19)
[2018-08-06] MEDS: NAPROXEN 500 MG TABLET (FP) PO SCH ×2 (09:49→21:19)
[2018-08-06] MEDS: PRENATAL VITAMINS W/ FOLIC ACID TABLET (FP) PO SCH (09:49)
[2018-08-06] MEDS: amLODIPine BESYLATE 10 MG TABLET (FP) PO SCH (09:49)
[2018-08-06] MEDS: ESCITALOPRAM OXALATE 10 MG TABLET (FP) PO SCH (09:49)
[2018-08-06] MEDS: QUEtiapine FUMARATE 100 MG TABLET (FP) PO SCH (09:49)
[2018-08-06] MEDS ORDERED: PT OWN MED DRAWER 7, Y5N ONE (17:27)
[2018-08-06] MEDS: MIRTAZAPINE 30 MG TABLET (FP) PO SCH (21:19)
[2018-08-06] MEDS: THIAMINE HCL 100 MG TABLET (FP) PO SCH (21:19)
[2018-08-06] MEDS: QUEtiapine FUMARATE 200 MG TABLET PO SCH (21:19)
[2018-08-07] MEDS: CLOTRIMAZOLE 10 MG TROCHE (FP) PO SCH ×5 (06:14→21:19)
[2018-08-07] MEDS: CYCLOBENZAPRINE HCL 10 MG TABLET (FP) PO SCH ×3 (06:15→21:19)
[2018-08-07] MEDS: hydrOXYzine PAMOATE 50 MG CAPSULE (FP) PO SCH ×3 (06:15→21:20)
[2018-08-07] MEDS: QUEtiapine FUMARATE 100 MG TABLET (FP) PO SCH (09:34)
[2018-08-07] MEDS: ESCITALOPRAM OXALATE 10 MG TABLET (FP) PO SCH (09:34)
[2018-08-07] MEDS: amLODIPine BESYLATE 10 MG TABLET (FP) PO SCH (09:34)
[2018-08-07] MEDS: PRENATAL VITAMINS W/ FOLIC ACID TABLET (FP) PO SCH (09:34)
[2018-08-07] MEDS: NAPROXEN 500 MG TABLET (FP) PO SCH ×2 (09:34→21:19)
[2018-08-07] MEDS: QUEtiapine FUMARATE 200 MG TABLET PO SCH (21:19)
[2018-08-07] MEDS: MIRTAZAPINE 30 MG TABLET (FP) PO SCH (21:19)
[2018-08-07] MEDS: THIAMINE HCL 100 MG TABLET (FP) PO SCH (21:19)
[2018-08-08] MEDS: hydrOXYzine PAMOATE 50 MG CAPSULE (FP) PO SCH ×3 (06:14→21:34)
[2018-08-08] MEDS: CYCLOBENZAPRINE HCL 10 MG TABLET (FP) PO SCH ×3 (06:14→21:34)
[2018-08-08] MEDS: CLOTRIMAZOLE 10 MG TROCHE (FP) PO SCH ×5 (06:14→22:40)
[2018-08-08] MEDS: ESCITALOPRAM OXALATE 10 MG TABLET (FP) PO SCH (10:06)
[2018-08-08] MEDS: PRENATAL VITAMINS W/ FOLIC ACID TABLET (FP) PO SCH (10:06)
[2018-08-08] MEDS: amLODIPine BESYLATE 10 MG TABLET (FP) PO SCH (10:06)
[2018-08-08] MEDS: QUEtiapine FUMARATE 100 MG TABLET (FP) PO SCH (10:06)
[2018-08-08] MEDS: NAPROXEN 500 MG TABLET (FP) PO SCH ×2 (10:07→21:34)
[2018-08-08] MEDS ORDERED: LIDOCAINE 5% TOPICAL PATCH TP SCH (11:00)
[2018-08-08] MEDS ORDERED: FLUCONAZOLE 100 MG TABLET (UD) PO ONE (11:01)
[2018-08-08] MEDS: TETRAHYDROZOLINE HCL EYE DROPS OU SCH ×2 (14:23→22:36)
[2018-08-08] MEDS: HYDROCORTISONE 2.5% TOPICAL CREAM 30 GM TUBE TP SCH ×2 (14:23→22:39)
--- NOTE | 2018-08-08 15:12 | PN ---
[facility] Progress Note Note: PT C/O EYE IRRITATION WITH REDNESS, SHOULDER PAIN, INNER MOUTH PAIN/"COTTON TONGUE" AND PAINFUL HEMORRHOIDS. PT HAS BEEN ON MYCELEX FOR 5 DAYS WITH NO RELIEF. HX HIV+ BUT NOT CURRENTLY ON ANTIRETROVIRAL MEDS. Vital Signs - 24 hr 08/08/18 08/08/18 08/08/18 00:30 03:30 07:02 Temperature 98.2 F Pulse Rate 94 H Respiratory 18 18 18 Rate Blood Pressure 116/78 08/08/18 08/08/18 07:04 09:30 Temperature 98.2 F 97.5 F L Pulse Rate 94 H 86 Respiratory 18 16 Rate Blood Pressure 116/78 119/82 Laboratory Tests 07/25/18 07/25/18 07/25/18 06:00 06:00 06:00 WBC 5.2 RBC 4.93 Hgb 14.5 Hct 44.6 D MCV 90.4 MCH 29.5 MCHC 32.6 RDW 13.8 Plt Count 251 MPV 10.0 D Sodium 141 Potassium 4.5 Chloride 108 H Carbon Dioxide 26 Anion Gap 7 L BUN 17 Creatinine 1.3 Creat Clearance w eGFR 57.53 Random Glucose 95 Calcium 9.4 Total Bilirubin 0.4 AST 24 ALT 24 Alkaline Phosphatase 62 Total Protein 7.8 Albumin 3.5 Urine Color Urine Appearance Urine pH Ur Specific [place] Urine Protein Urine Glucose (UA) Urine Ketones Urine Blood Urine Nitrite Urine Bilirubin Urine Urobilinogen Ur Leukocyte Esterase RPR Titer Nonreactive 07/25/18 08:30 WBC RBC Hgb Hct MCV MCH MCHC RDW Plt Count MPV Sodium Potassium Chloride Carbon Dioxide Anion Gap BUN Creatinine Creat Clearance w eGFR Random Glucose Calcium Total Bilirubin AST ALT Alkaline Phosphatase Total Protein Albumin Urine Color Ltyellow Urine Appearance Clear Urine pH 6.0 Ur Specific [place] 1.018 Urine Protein Negative Urine Glucose (UA) Negative Urine Ketones Negative Urine Blood Negative Urine Nitrite Negative Urine Bilirubin Negative Urine Urobilinogen Negative Ur Leukocyte Esterase Negative RPR Titer ORAL EXAM:WHITISH PATCHES ON TONGUE. SLIGHT PHARYNGEAL ERYTHEMA WITH NO EXUDATES. EYES:VERY MINIMAL REDNESS WITH NO EXUDATE,WATERY. IMPRESSION:HX HEMORRHOIDS WITH ACUTE FLARE UP ORAL CANDIDIASIS CHRONIC PAIN-SHOULDERS PLAN:NAPROSYN DIRECTED ANUSOL HC CREAM DIRECTED DIFLUCAN 200 MG PO NOW GIVEN AND THEN 100 MG PO DAILY STARTING TOMORROW. CONTINUE MYCELEX VISINE EYE DROP DIRECTED INCREASE PO FLUIDS
[2018-08-08] MEDS: MIRTAZAPINE 30 MG TABLET (FP) PO SCH (21:34)
[2018-08-08] MEDS: THIAMINE HCL 100 MG TABLET (FP) PO SCH (21:34)
[2018-08-08] MEDS: QUEtiapine FUMARATE 200 MG TABLET PO SCH (21:34)
[2018-08-08] MEDS ORDERED: LIDOCAINE PATCH REMOVAL MC SCH (22:00)
[2018-08-09] MEDS: hydrOXYzine PAMOATE 50 MG CAPSULE (FP) PO SCH ×3 (06:07→21:29)
[2018-08-09] MEDS: CLOTRIMAZOLE 10 MG TROCHE (FP) PO SCH ×5 (06:08→21:31)
[2018-08-09] MEDS: CYCLOBENZAPRINE HCL 10 MG TABLET (FP) PO SCH ×3 (06:08→21:29)
[2018-08-09] MEDS: HYDROCORTISONE 2.5% TOPICAL CREAM 30 GM TUBE TP SCH ×3 (07:01→21:30)
[2018-08-09] MEDS: TETRAHYDROZOLINE HCL EYE DROPS OU SCH ×2 (10:04→21:32)
[2018-08-09] MEDS: QUEtiapine FUMARATE 100 MG TABLET (FP) PO SCH (10:04)
[2018-08-09] MEDS: FLUCONAZOLE 100 MG TABLET (UD) PO SCH (10:04)
[2018-08-09] MEDS: ESCITALOPRAM OXALATE 10 MG TABLET (FP) PO SCH (10:04)
[2018-08-09] MEDS: PRENATAL VITAMINS W/ FOLIC ACID TABLET (FP) PO SCH (10:04)
[2018-08-09] MEDS: amLODIPine BESYLATE 10 MG TABLET (FP) PO SCH (10:04)
[2018-08-09] MEDS: NAPROXEN 500 MG TABLET (FP) PO SCH ×2 (10:04→21:29)
[2018-08-09] MEDS: MIRTAZAPINE 30 MG TABLET (FP) PO SCH (21:29)
[2018-08-09] MEDS: QUEtiapine FUMARATE 200 MG TABLET PO SCH (21:29)
[2018-08-09] MEDS: THIAMINE HCL 100 MG TABLET (FP) PO SCH (21:30)
[2018-08-10] MEDS: CLOTRIMAZOLE 10 MG TROCHE (FP) PO SCH ×4 (06:35→18:02)
[2018-08-10] MEDS: CYCLOBENZAPRINE HCL 10 MG TABLET (FP) PO SCH ×3 (06:35→21:23)
[2018-08-10] MEDS: hydrOXYzine PAMOATE 50 MG CAPSULE (FP) PO SCH ×3 (06:35→21:23)
[2018-08-10] MEDS: HYDROCORTISONE 2.5% TOPICAL CREAM 30 GM TUBE TP SCH ×3 (06:36→21:24)
[2018-08-10] MEDS: ESCITALOPRAM OXALATE 10 MG TABLET (FP) PO SCH (10:04)
[2018-08-10] MEDS: amLODIPine BESYLATE 10 MG TABLET (FP) PO SCH (10:04)
[2018-08-10] MEDS: NAPROXEN 500 MG TABLET (FP) PO SCH ×2 (10:04→21:23)
[2018-08-10] MEDS: QUEtiapine FUMARATE 100 MG TABLET (FP) PO SCH (10:04)
[2018-08-10] MEDS: PRENATAL VITAMINS W/ FOLIC ACID TABLET (FP) PO SCH (10:04)
[2018-08-10] MEDS: FLUCONAZOLE 100 MG TABLET (UD) PO SCH (10:04)
[2018-08-10] MEDS: TETRAHYDROZOLINE HCL EYE DROPS OU SCH ×2 (10:04→21:25)
[2018-08-10] MEDS: QUEtiapine FUMARATE 200 MG TABLET PO SCH (21:23)
[2018-08-10] MEDS: THIAMINE HCL 100 MG TABLET (FP) PO SCH (21:23)
[2018-08-10] MEDS: MIRTAZAPINE 30 MG TABLET (FP) PO SCH (21:23)
[2018-08-11] MEDS: CYCLOBENZAPRINE HCL 10 MG TABLET (FP) PO SCH ×3 (06:49→21:20)
[2018-08-11] MEDS: hydrOXYzine PAMOATE 50 MG CAPSULE (FP) PO SCH ×3 (06:49→21:20)
[2018-08-11] MEDS: HYDROCORTISONE 2.5% TOPICAL CREAM 30 GM TUBE TP SCH ×3 (06:53→21:20)
[2018-08-11] MEDS: NAPROXEN 500 MG TABLET (FP) PO SCH ×2 (10:02→21:20)
[2018-08-11] MEDS: PRENATAL VITAMINS W/ FOLIC ACID TABLET (FP) PO SCH (10:02)
[2018-08-11] MEDS: amLODIPine BESYLATE 10 MG TABLET (FP) PO SCH (10:02)
[2018-08-11] MEDS: ESCITALOPRAM OXALATE 10 MG TABLET (FP) PO SCH (10:02)
[2018-08-11] MEDS: FLUCONAZOLE 100 MG TABLET (UD) PO SCH (10:02)
[2018-08-11] MEDS: QUEtiapine FUMARATE 100 MG TABLET (FP) PO SCH (10:03)
[2018-08-11] MEDS: TETRAHYDROZOLINE HCL EYE DROPS OU SCH ×2 (10:06→21:21)
[2018-08-11] MEDS: THIAMINE HCL 100 MG TABLET (FP) PO SCH (21:20)
[2018-08-11] MEDS: QUEtiapine FUMARATE 200 MG TABLET PO SCH (21:20)
[2018-08-11] MEDS: MIRTAZAPINE 30 MG TABLET (FP) PO SCH (21:20)
[2018-08-12] MEDS: hydrOXYzine PAMOATE 50 MG CAPSULE (FP) PO SCH ×3 (06:24→21:41)
[2018-08-12] MEDS: CYCLOBENZAPRINE HCL 10 MG TABLET (FP) PO SCH ×3 (06:24→21:41)
[2018-08-12] MEDS: HYDROCORTISONE 2.5% TOPICAL CREAM 30 GM TUBE TP SCH ×3 (06:25→22:31)
[2018-08-12] MEDS: FLUCONAZOLE 100 MG TABLET (UD) PO SCH (09:37)
[2018-08-12] MEDS: ESCITALOPRAM OXALATE 10 MG TABLET (FP) PO SCH (09:37)
[2018-08-12] MEDS: PRENATAL VITAMINS W/ FOLIC ACID TABLET (FP) PO SCH (09:37)
[2018-08-12] MEDS: TETRAHYDROZOLINE HCL EYE DROPS OU SCH ×2 (09:37→22:31)
[2018-08-12] MEDS: amLODIPine BESYLATE 10 MG TABLET (FP) PO SCH (09:38)
[2018-08-12] MEDS: QUEtiapine FUMARATE 100 MG TABLET (FP) PO SCH (09:38)
[2018-08-12] MEDS: NAPROXEN 500 MG TABLET (FP) PO SCH ×2 (09:38→21:41)
[2018-08-12] MEDS: MIRTAZAPINE 30 MG TABLET (FP) PO SCH (21:41)
[2018-08-12] MEDS: THIAMINE HCL 100 MG TABLET (FP) PO SCH (21:41)
[2018-08-12] MEDS: QUEtiapine FUMARATE 200 MG TABLET PO SCH (21:41)
[2018-08-13] MEDS: HYDROCORTISONE 2.5% TOPICAL CREAM 30 GM TUBE TP SCH ×3 (06:44→21:29)
[2018-08-13] MEDS: hydrOXYzine PAMOATE 50 MG CAPSULE (FP) PO SCH ×3 (06:45→21:30)
[2018-08-13] MEDS: CYCLOBENZAPRINE HCL 10 MG TABLET (FP) PO SCH ×3 (06:45→21:31)
[2018-08-13] MEDS: NAPROXEN 500 MG TABLET (FP) PO SCH ×2 (10:22→21:31)
[2018-08-13] MEDS: ESCITALOPRAM OXALATE 10 MG TABLET (FP) PO SCH (10:22)
[2018-08-13] MEDS: PRENATAL VITAMINS W/ FOLIC ACID TABLET (FP) PO SCH (10:22)
[2018-08-13] MEDS: amLODIPine BESYLATE 10 MG TABLET (FP) PO SCH (10:22)
[2018-08-13] MEDS: FLUCONAZOLE 100 MG TABLET (UD) PO SCH (10:23)
[2018-08-13] MEDS: QUEtiapine FUMARATE 100 MG TABLET (FP) PO SCH (10:23)
[2018-08-13] MEDS: TETRAHYDROZOLINE HCL EYE DROPS OU SCH ×2 (10:23→21:30)
[2018-08-13] MEDS: THIAMINE HCL 100 MG TABLET (FP) PO SCH (21:30)
[2018-08-13] MEDS: MIRTAZAPINE 30 MG TABLET (FP) PO SCH (21:30)
[2018-08-13] MEDS: QUEtiapine FUMARATE 200 MG TABLET PO SCH (21:31)
[2018-08-14] MEDS: hydrOXYzine PAMOATE 50 MG CAPSULE (FP) PO SCH ×3 (06:30→21:28)
[2018-08-14] MEDS: CYCLOBENZAPRINE HCL 10 MG TABLET (FP) PO SCH ×3 (06:30→21:28)
[2018-08-14] MEDS: HYDROCORTISONE 2.5% TOPICAL CREAM 30 GM TUBE TP SCH ×3 (06:31→21:29)
[2018-08-14] MEDS: ESCITALOPRAM OXALATE 10 MG TABLET (FP) PO SCH (10:23)
[2018-08-14] MEDS: PRENATAL VITAMINS W/ FOLIC ACID TABLET (FP) PO SCH (10:23)
[2018-08-14] MEDS: FLUCONAZOLE 100 MG TABLET (UD) PO SCH (10:23)
[2018-08-14] MEDS: QUEtiapine FUMARATE 100 MG TABLET (FP) PO SCH (10:23)
[2018-08-14] MEDS: amLODIPine BESYLATE 10 MG TABLET (FP) PO SCH (10:23)
[2018-08-14] MEDS: NAPROXEN 500 MG TABLET (FP) PO SCH ×2 (10:23→21:28)
[2018-08-14] MEDS: TETRAHYDROZOLINE HCL EYE DROPS OU SCH ×2 (10:24→21:29)
[2018-08-14] MEDS: MIRTAZAPINE 30 MG TABLET (FP) PO SCH (21:28)
[2018-08-14] MEDS: QUEtiapine FUMARATE 200 MG TABLET PO SCH (21:28)
[2018-08-14] MEDS: THIAMINE HCL 100 MG TABLET (FP) PO SCH (21:28)
[2018-08-15] MEDS: CYCLOBENZAPRINE HCL 10 MG TABLET (FP) PO SCH (06:16)
[2018-08-15] MEDS: hydrOXYzine PAMOATE 50 MG CAPSULE (FP) PO SCH ×3 (06:16→21:31)
[2018-08-15] MEDS: HYDROCORTISONE 2.5% TOPICAL CREAM 30 GM TUBE TP SCH ×3 (06:17→21:31)
[2018-08-15] MEDS: amLODIPine BESYLATE 10 MG TABLET (FP) PO SCH (09:57)
[2018-08-15] MEDS: NAPROXEN 500 MG TABLET (FP) PO SCH ×2 (09:57→21:30)
[2018-08-15] MEDS: ESCITALOPRAM OXALATE 10 MG TABLET (FP) PO SCH (09:57)
[2018-08-15] MEDS: PRENATAL VITAMINS W/ FOLIC ACID TABLET (FP) PO SCH (09:57)
[2018-08-15] MEDS: FLUCONAZOLE 100 MG TABLET (UD) PO SCH (09:57)
[2018-08-15] MEDS: QUEtiapine FUMARATE 100 MG TABLET (FP) PO SCH (09:58)
[2018-08-15] MEDS: TETRAHYDROZOLINE HCL EYE DROPS OU SCH ×2 (09:58→21:31)
[2018-08-15] MEDS: THIAMINE HCL 100 MG TABLET (FP) PO SCH (21:30)
[2018-08-15] MEDS: QUEtiapine FUMARATE 200 MG TABLET PO SCH (21:30)
[2018-08-15] MEDS: MIRTAZAPINE 30 MG TABLET (FP) PO SCH (21:31)
[2018-08-16 06:46] VITALS: BP 126/84; PULSE 90; TEMP 97.7
[2018-08-16] MEDS: hydrOXYzine PAMOATE 50 MG CAPSULE (FP) PO SCH (06:54)
[2018-08-16] MEDS: HYDROCORTISONE 2.5% TOPICAL CREAM 30 GM TUBE TP SCH (06:54)
[2018-08-16] MEDS: ESCITALOPRAM OXALATE 10 MG TABLET (FP) PO SCH (10:30)
[2018-08-16] MEDS: QUEtiapine FUMARATE 100 MG TABLET (FP) PO SCH (10:30)
[2018-08-16] MEDS: PRENATAL VITAMINS W/ FOLIC ACID TABLET (FP) PO SCH (10:31)
[2018-08-16] MEDS: amLODIPine BESYLATE 10 MG TABLET (FP) PO SCH (10:31)
[2018-08-16] MEDS: NAPROXEN 500 MG TABLET (FP) PO SCH (10:31)
[2018-08-16] MEDS: TETRAHYDROZOLINE HCL EYE DROPS OU SCH (11:21)
--- NOTE | 2018-08-16 11:39 | PN ---
[facility] Progress Note Note: Patient insists on leaving before his scheduled discharge date. 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 He is referred to [facility] for outpatient treatment. Refer to staff note for further information. As per staff, he was stable on discharge
== END 2018-08-16 11:40 | disposition home or self-care (01) | DRG 895 ==
LOC: YASAS 09:43 → Y3N 14:11 → Y5N 07-30 14:15
PROVIDERS: ATTEND Psychiatry & Neurology Psychiatry
PROC: HZ2ZZZZ Detoxification Services for Substance Abuse Treatment (ICD-10-PCS; principal; 2018-07-24)
PROC: HZ42ZZZ Group Counseling for Substance Abuse Treatment, Cognitive-Behavioral (ICD-10-PCS; 2018-07-30)
DX: F10.230 Alcohol dependence with withdrawal, uncomplicated (principal); F14.20 Cocaine dependence, uncomplicated; F33.9 Major depressive disorder, recurrent, unspecified; B37.0 Candidal stomatitis; I10 Essential (primary) hypertension; Z21 Asymptomatic human immunodeficiency virus [HIV] infection status; M25.511 Pain in right shoulder; H57.89 Other specified disorders of eye and adnexa; K64.8 Other hemorrhoids; K21.9 Gastro-esophageal reflux disease without esophagitis; R79.89 Other specified abnormal findings of blood chemistry; Z87.891 Personal history of nicotine dependence; Z86.69 Personal history of other diseases of the nervous system and sense organs; Z91.013 Allergy to seafood
CPT/HCPCS: 36415; 80053; 81003; 85027; 86593

== ENCOUNTER 2019-03-29 12:00 | Inpatient (IN) | payer OTHER ==
[2019-03-29 16:51] VITALS: BMI 23.6
--- NOTE | 2019-03-29 17:44 | HP ---
CIWA Score Nausea/Vomitin-Mild Nausea/No Vomiting Muscle Tremors: 4-Moderate,w/Arms Extend Anxiety: 3 Agitation: 4-Moderately Restless Paroxysmal Sweats: 3 (Increased facial moisture) Orientation: 0-Oriented Tacttile Disturbances: 0-None Auditory Disturbances: 0-None Visual Disturbances: 0-None Headache: 2-Mild CIWA-Ar Total Score: 17 - Admission Criteria OAS Guidelines: Admission for Medically Managed Detox: Requires at least one of the followin. CIWA greater than 12 2. Seizures within the past 24 hours 3. Delirium tremens within the past 24 hours 4. Hallucinations within the past 24 hours 5. Acute intervention needed for co occurring medical disorder 6. Acute intervention needed for co occurring psychiatric disorder 7. Severe withdrawal that cannot be handled at a lower level of care (continued vomiting, continued diarrhea, abnormal vital signs) requiring intravenous medication and/or fluids 8. Patient presents the following: CIWA greater than 12 Admission Criteria Met: Admission criteria met Admission ROS [facility] Chief Complaint: "having alcohol withdrawal symptoms" Allergies/Adverse Reactions: Allergies Allergy/AdvReac Type Severity Reaction Status Date / Time fish derived Allergy Severe Swelling Verified 03/29/19 16:41 shellfish derived Allergy Severe Swelling Verified 03/29/19 16:41 No Known Drug Allergies Allergy Verified 03/29/19 16:41 seafood Allergy Severe Swelling Uncoded 03/29/19 16:41 History of Present Illness: Presents with alcohol withdrawal symptoms and requesting admission to detox. Patient last here in 08/16/2018. Longest length of sobriety 6 months (07/2018 - 12/2018) Alcohol use since age 22. Current 6 - 1/2 pints(3 pints) x past 3 months. Crack/cocaine use since age 22. Denies hx seizures, blackouts, overdoses. PMHx: States heart attack in 12/2017 and started on meds; COPD; HTN; HIV+ (Did not bring HIV meds. States aware not receiving these meds while here. Encouraged to f/u w/ PCP current status upon discharge). PPD+; MHHx: Anxiety, Insomnia, Depression. Denies thoughts of harming self or others. Patient Name: Chacorta Mccord Date: 1965 Address: [address] [place] [address] Sex: Male Rx Written Rx Dispensed Drug Quantity Days Supply Prescriber Name 06/25/2018 06/26/2018 clonazepam 0.5 mg tablet 5 5 Clyde Alvarado MD Search Terms: Chacorta Mccord, 1965 Search Date: 03/29/2019 05:43:07 PM States Searched: [place], [place], [place], [place], [place], [place], [place] The Drug Utilization Report below displays the controlled substance prescriptions, if any, that were dispensed in the indicated state(s). The information displayed on this report is compiled from requests submitted to other states' PMPs, and accurately reflects the information as returned by them. Blank breen indicate data not provided by other state. This report was requested by: Lisa Jerome | Reference #: [id number] Exam Limitations: No Limitations - Ebola screening Have you traveled outside of the country in the last 21 days: No (N) Have you had contact with anyone from an Ebola affected area: No Have you been sick,other than usual withdrawal symptoms: No (Denies recent exposure to measles) Do you have a fever: No - Review of Systems Constitutional: Chills, Changes in sleep (Difficulty falling and staying asleep) EENT: reports: Blurred Vision Respiratory: reports: No Symptoms reported (Hx COPD) Cardiac: reports: No Symptoms Reported (Hx OK) GI: reports: Diarrhea (liquid, dark, States x 7 BM's today. Denies blood.), Nausea : reports: No Symptoms Reported Musculoskeletal: reports: No Symptoms Reported Integumentary: reports: No Symptoms Reported Neuro: reports: Headache (Throbbing/achy headache back of head on (R) side) Endocrine: reports: No Symptoms Reported Hematology: reports: Other (HIV+) Psychiatric: reports: Judgement Intact, Orientated x3, Anxious, Depressed ( Denies thoughts of harming self or others.) Patient History - Patient Medical History Hx Anemia: No Hx Asthma: No Hx Chronic Obstructive Pulmonary Disease (COPD): No Hx Cancer: No Hx Cardiac Disorders: No Hx Congestive Heart Failure: No Hx Hypertension: Yes (Drug induced in the past.) Hx Hypercholesterolemia: No Hx Pacemaker: No HX Cerebrovascular Accident: No Hx Seizures: No Hx Dementia: No Hx Diabetes: No Hx Gastrointestinal Disorders: No Hx Liver Disease: No Hx Genitourinary Disorders: No Hx Sexually Transmitted Disorders: No Hx Renal Disease (ESRD): No Hx Thyroid Disease: No Hx Human Immunodeficiency Virus (HIV): Yes Hx Hepatitis C: No Hx Depression: Yes Hx Suicide Attempt: No Hx Bipolar Disorder: No Hx Schizophrenia: No - Patient Surgical History Past Surgical History: No Hx Neurologic Surgery: No Hx Cataract Extraction: No Hx Cardiac Surgery: No Hx Lung Surgery: No Hx Breast Surgery: No Hx Breast Biopsy: No Hx Abdominal Surgery: No Hx Appendectomy: No Hx Cholecystectomy: No Hx Genitourinary Surgery: No Hx Section: No Hx Orthopedic Surgery: No Anesthesia Reaction: No - PPD History Previous Implant?: Yes Documented Results: Positive w/o proof (States history PPD + in 1994. Was on INH and B6 x 1 year) Implanted On Prior [facility] Admission?: No PPD to be Administered?: No - Smoking Cessation Smoking history: Former smoker Have you smoked in the past 12 months: Yes Aproximately how many cigarettes per day: 6 If you are a former smoker, when did you quit?: 5 months ago Cigars Per Day: 0 Hx Chewing Tobacco Use: No Initiated information on smoking cessation: Yes 'Breaking Loose' booklet given: 03/29/19 - Substance & Tx. History Hx Alcohol Use: Yes Hx Substance Use: Yes Substance Use Type: Alcohol, Cocaine Hx Substance Use Treatment: Yes (detox, rehab) - Substances abused Crack Substance route: Smoking Frequency: Daily Amount used: $50 Age of first use: 22 Date of last use: 03/27/19 Alcohol Substance route: Oral Frequency: Daily Amount used: 3 PINTS Age of first use: 22 Date of last use: 03/29/19 Admission Physical Exam [facility] - Vital Signs Vital Signs: Vital Signs - 24 hr 03/29/19 16:46 Temperature 96.4 F L Pulse Rate 70 Respiratory 18 Rate Blood Pressure 157/111 H - Physical General Appearance: Yes: Nourished, Mild Distress, Sweating (Increased facial moisture) HEENTM: Yes: EOMI (Jerking movement of eyes on lateral gaze.), Hearing grossly Normal, Normocephalic, Normal Voice, ROBERT, Pharynx Normal Respiratory: Yes: Lungs Clear, Normal Breath Sounds, No Respiratory Distress Neck: Yes: No masses,lesions,Nodules, Supple Breast: Yes: Breast Exam Deferred Cardiology: Yes: Regular Rhythm, S1, S2, Murmur Abdominal: Yes: Non Tender, Flat, Soft, Increased Bowel Sounds Genitourinary: Yes: Within Normal Limits Back: Yes: Normal Inspection Musculoskeletal: Yes: full range of Motion, Gait Steady Extremities: Yes: Normal Capillary Refill, Normal Range of Motion, Non-Tender, Tremors (Mod tremors w/ arms elevated) 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 NML intact (Jerking movement of eyes on lateral gaze.), Fully Oriented, Alert, Motor Strength 5/5 Integumentary: Yes: Normal Color, Warm, Other (Thickened, flaky toenails.) Lymphatic: Yes: Within Normal Limits - Diagnostic (1) History of positive PPD Current Visit: No Status: Chronic (2) History of COPD Current Visit: Yes Status: Chronic (3) Alcohol dependence with uncomplicated withdrawal Current Visit: Yes Status: Acute (4) Cannabis dependence Current Visit: Yes Status: Chronic (5) Cocaine dependence Current Visit: Yes Status: Chronic Qualifiers: Substance use status: uncomplicated Qualified Code(s): F14.20 - Cocaine dependence, uncomplicated (6) Human immunodeficiency virus infection Current Visit: Yes Status: Chronic (7) Hypertension Current Visit: Yes Status: Chronic Qualifiers: Hypertension type: essential hypertension Qualified Code(s): I10 - Essential (primary) hypertension (8) Cardiac murmur Current Visit: Yes Status: Acute (9) Nystagmus Current Visit: Yes Status: Acute (10) History of heart attack Current Visit: No Status: Chronic Cleared for Admission [facility] - Detox or Rehab [facility] Level of Care: Medically Managed Detox Regimen/Protocol: Librium Claeared for Rehab Admission: No Breathalyzer - Breathalyzer Breathalyzer: 0 Urine Drug Screen - Test Device Lot number: [id number] Expiration date: 12/13/20 - Control Is test valid?: Yes - Results Drug screen NEGATIVE: No Urine drug screen results: THC-Marijuana, ARISTEO-Cocaine Inpatient Rehab Admission - Rehab Decision to Admit Inpatient rehab admission?: No
[2019-03-29] MEDS ORDERED: BISMUTH SUBSALICYLATE 524 MG/30 ML UD PO PRN (18:18)
[2019-03-29] MEDS ORDERED: METHOCARBAMOL 500 MG TABLET PO PRN (18:18)
[2019-03-29] MEDS ORDERED: MENTHOL/PHENOL 1 EACH UD MM PRN (18:18)
[2019-03-29] MEDS ORDERED: ACETAMINOPHEN 325 MG TABLET (FP) PO PRN ×2 (18:18)
[2019-03-29] MEDS ORDERED: IBUPROFEN 400 MG TABLET (FP) PO PRN (18:18)
[2019-03-29] MEDS ORDERED: MAGNESIUM HYDROX 2400MG/30ML ORAL SUSPENSION 30 ML CUP PO PRN (18:18)
[2019-03-29] MEDS ORDERED: chlordiazePOXIDE HCL 25 MG CAPSULE PO PRN (18:18)
[2019-03-29] MEDS ORDERED: MAGNESIUM CITRATE 300 ML BOTTLE PO PRN (18:18)
[2019-03-29] MEDS ORDERED: MELATONIN 5 MG TABLETS PO PRN (18:18)
[2019-03-29] MEDS ORDERED: MAG HYDROX/AL HYDROX/SIMETH 30 ML UNIT-DOSE CUP PO PRN (18:18)
[2019-03-29] MEDS ORDERED: chlordiazePOXIDE HCL 25 MG CAPSULE PO ONE (19:15)
[2019-03-29] MEDS ORDERED: cloNIDine HCL 0.1 MG TABLET PO ONE (19:40)
[2019-03-29] MEDS ORDERED: PATIENT'S OWN MEDICATION (NON-FORMULARY) (Pravastatin Sodium 40 MG) PO SCH (22:00)
[2019-03-29] MEDS ORDERED: CARVEDILOL PO SCH (22:00)
[2019-03-29] MEDS: THIAMINE HCL 100 MG TABLET (FP) PO SCH (22:20)
[2019-03-29] MEDS: chlordiazePOXIDE HCL 25 MG CAPSULE PO SCH (22:20)
[2019-03-29] MEDS ORDERED: QUEtiapine FUMARATE 50 MG TABLET PO ONE (23:00)
[2019-03-30] MEDS: chlordiazePOXIDE HCL 25 MG CAPSULE PO SCH ×4 (05:10→22:32)
[2019-03-30] MEDS ORDERED: NIFEdipine E.R 60 MG TABLET (UD) PO SCH (10:00)
[2019-03-30 10:43] LABS: ALBUMIN 3.1 g/dl (3.4-5.0); BILIRUBIN,TOTAL 0.3 mg/dL (0.2-1); BLOOD UREA NITROGEN 5.9 mg/dL (7-18); CALCIUM 8.2 mg/dL (8.5-10.1); CREATININE 1.1 mg/dL (0.55-1.3); POTASSIUM 3.3 mmol/L (3.5-5.1); TOT PROT 6.3 g/dl (6.4-8.2)
[2019-03-30] MEDS: PRENATAL VITAMINS W/ FOLIC ACID TABLET (FP) PO SCH (11:00)
[2019-03-30] MEDS: NIFEdipine E.R 60 MG TABLET (UD) PO SCH (11:00)
[2019-03-30 11:18] LABS: HEMATOCRIT 34.1 % (35.4-49); HEMOGLOBIN 11.7 GM/dL (11.7-16.9); MCH 31.9 pg (25.7-33.7); MCHC 34.5 g/dl (32.0-35.9); MEAN CELL VOLUME 92.5 fl (80-96); MEAN PLT VOLUME 8.7 fl (7.5-11.1); RBC 3.68 M/mm3 (4.00-5.60); RDW 13.3 % (11.9-15.9)
[2019-03-30 11:37] LABS: PLATELET COUNT 247 K/MM3 (134-434)
--- NOTE | 2019-03-30 12:35 | CONSULT ---
[facility] Psychiatric Consult - Data Date of interview: 03/30/19 Admission source: [facility] Identifying data: This is one of multiple admissions to [facility] for this 54 y/ o AA male self-referred for detoxification treatment (alcohol, crack/cocaine). Patient is single without children, domiciled, unemployed and supported on SSI benefits. Substance Abuse History: Confirmed by patient in this session. Details in current [facility] report as follows : Smoking history: Former smoker. Have you smoked in the past 12 months: Yes. Aproximately how many cigarettes per day: 6. If you are a former smoker, when did you quit?: 5 months ago. Cigars Per Day: 0. Hx Chewing Tobacco Use: No. Initiated information on smoking cessation : Yes. 'Breaking Loose' booklet given: 03/29/19. - Substance & Tx. History. Hx Alcohol Use: Yes. Hx Substance Use: Yes. Substance Use Type: Alcohol, Cocaine. Hx Substance Use Treatment: Yes (detox, rehab). - Substances abused. Crack. Substance route: Smoking. Frequency: Daily. Amount used: $50. Age of first use: 22. Date of last use: 03/27/19. Alcohol. Substance route : Oral. Frequency: Daily. Amount used: 3 PINTS. Age of first use: 22. Date of last use: 03/29/19 Medical History: Medical profile is remarkable for HIV infection since 1994 (on ART medications), hypertension, antecedent of withdrawal-related seizures and peripheral neuropathy. 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 Psychiatric History: Patient admits to a history of two psychiatric hospitalizations ([facility]). Reportedly diagnosed with MDD and Anxiety Disorder. Mr Mccord indicates that he is still followed at the [facility] OPD clinic for medication management (seroquel 100 mg po hs). Patient denies history of suicide attempts. Additional Comment: Urine drug screen results: THC-Marijuana, ARISTEO-Cocaine. Noted. Mental Status Exam - Mental Status Exam Alert and Oriented to: Time, Place, Person Cognitive Function: Grossly Intact Patient Appearance: Unkempt, Disheveled Mood: Nervous, Withdrawn, Anxious Affect: Mood Congruent, Constricted Patient Behavior: Fatigued, Appropriate, Cooperative Speech Pattern: Clear, Appropriate Voice Loudness: Normal Thought Process: Goal Oriented Thought Disorder: Not Present Hallucinations: Denies Suicidal Ideation: Denies Homicidal Ideation: Denies Insight/Judgement: Poor Sleep: Poorly, Difficulty falling asleep Appetite: Fair, Weight loss Muscle strength/Tone: Normal Gait/Station: Normal Psychiatric Findings - Problem List (Addison 1, 2,3) (1) Alcohol dependence with uncomplicated withdrawal Current Visit: Yes Status: Acute (2) Cannabis dependence Current Visit: Yes Status: Chronic (3) Cocaine dependence Current Visit: Yes Status: Chronic Qualifiers: Substance use status: uncomplicated Qualified Code(s): F14.20 - Cocaine dependence, uncomplicated (4) Substance induced mood disorder Current Visit: Yes Status: Chronic (5) Insomnia Current Visit: Yes Status: Chronic - Initial Treatment Plan Initial Treatment Plan: Psychoeducation. Sleep hygiene. Detoxification. AA meetings. Relapse prevention (MAT) : discussed in this session. Seroquel 100 mg po hs. Ordered at patient's request. Side effects/benefits discussed with patient. Verbal consent given to MD. Jaime.
--- NOTE | 2019-03-30 14:00 | PN ---
[facility] CIWA - CIWA Score Nausea/Vomitin-No Nausea/No Vomiting Muscle Tremors: 3 Anxiety: 3 Agitation: 2 Paroxysmal Sweats: 3 Orientation: 0-Oriented Tacttile Disturbances: 0-None Auditory Disturbances: 0-None Visual Disturbances: 0-None Headache: 0-None Present CIWA-Ar Total Score: 11 S Progress Note (SOAP) Subjective: shakes diarrhea Objective: 03/30/19 13:54 A & Ox 3 restless gait steady Vital Signs Temperature 97.3 F L 03/30/19 10:00 Pulse Rate 102 H 03/30/19 10:00 Respiratory Rate 20 03/30/19 10:00 Blood Pressure 139/97 03/30/19 10:05 O2 Sat by Pulse Oximetry (%) Laboratory Last Values WBC 3.0 K/mm3 (4.0-10.0) L 03/30/19 07:40 RBC 3.68 M/mm3 (4.00-5.60) L 03/30/19 07:40 Hgb 11.7 GM/dL (11.7-16.9) 03/30/19 07:40 Hct 34.1 % (35.4-49) L D 03/30/19 07:40 MCV 92.5 fl (80-96) 03/30/19 07:40 MCH 31.9 pg (25.7-33.7) 03/30/19 07:40 MCHC 34.5 g/dl (32.0-35.9) 03/30/19 07:40 RDW 13.3 % (11.9-15.9) 03/30/19 07:40 Plt Count 247 K/MM3 (134-434) 03/30/19 07:40 MPV 8.7 fl (7.5-11.1) D 03/30/19 07:40 Sodium 142 mmol/L (136-145) 03/30/19 07:40 Potassium 3.3 mmol/L (3.5-5.1) L 03/30/19 07:40 Chloride 111 mmol/L (98-107) H 03/30/19 07:40 Carbon Dioxide 24 mmol/L (21-32) 03/30/19 07:40 Anion Gap 7 MMOL/L (8-16) L 03/30/19 07:40 BUN 5.9 mg/dL (7-18) L 03/30/19 07:40 Creatinine 1.1 mg/dL (0.55-1.3) 03/30/19 07:40 Est GFR (CKD-EPI)AfAm 87.13 03/30/19 07:40 Est GFR (CKD-EPI)NonAf 75.17 03/30/19 07:40 Random Glucose 102 mg/dL (74-106) 03/30/19 07:40 Calcium 8.2 mg/dL (8.5-10.1) L 03/30/19 07:40 Total Bilirubin 0.3 mg/dL (0.2-1) 03/30/19 07:40 AST 12 U/L (15-37) L 03/30/19 07:40 ALT 14 U/L (13-61) 03/30/19 07:40 Alkaline Phosphatase 56 U/L (45-117) 03/30/19 07:40 Total Protein 6.3 g/dl (6.4-8.2) L 03/30/19 07:40 Albumin 3.1 g/dl (3.4-5.0) L 03/30/19 07:40 RPR Titer Nonreactive (NONREACTIVE) 03/30/19 07:40 labs reviewed Abnormal values noted Assessment: 03/30/19 13:57 withdrawal sx Hypokalemia hypocalcemia Plan: continue detox Increase water intake Potassium and calcium supplements Pravastatin and Trelegy changed to formulary brands per pharmacy, patient agreeable and verbalized understanding
[2019-03-30] MEDS ORDERED: ATORVASTATIN CA 10 MG TABLET (FP) PO ONE (14:29)
[2019-03-30] MEDS: CALCIUM 250MG/VIT-D 125 UNITS 1 COMBO TABLET PO SCH (15:11)
[2019-03-30] MEDS: ALBUTEROL SO4 8 GM HFA INHALER IH PRN (19:19)
[2019-03-30] MEDS ORDERED: ATORVASTATIN CA 40 MG TABLET (FP) PO SCH (22:00)
[2019-03-30] MEDS ORDERED: BUDESONIDE/FORMETEROL FUMARATE 80/4.5 mcg INHALER IH SCH (22:00)
[2019-03-30] MEDS: POTASSIUM CHLORIDE TABS 20 MEQ TABLET.ER (FP) PO SCH (22:31)
[2019-03-30] MEDS: ATORVASTATIN CA 10 MG TABLET (FP) PO SCH (22:31)
[2019-03-30] MEDS: QUEtiapine FUMARATE 100 MG TABLET (FP) PO SCH (22:31)
[2019-03-30] MEDS: CARVEDILOL 3.125 MG TABLET (FP) PO SCH (22:44)
[2019-03-30] MEDS: THIAMINE HCL 100 MG TABLET (FP) PO SCH (22:45)
[2019-03-30] MEDS ORDERED: TIOTROPIUM BROMIDE 2.5 MCG (SPIRIVA) RESPIMAT INHALER IH SCH (23:15)
[2019-03-31] MEDS: chlordiazePOXIDE HCL 25 MG CAPSULE PO SCH ×3 (05:09→17:46)
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
[2019-03-31] MEDS ORDERED: TIOTROPIUM BROMIDE 2.5 MCG (SPIRIVA) RESPIMAT INHALER IH SCH (10:00)
[2019-03-31] MEDS ORDERED: ONDANSETRON *ODT* 4 MG TABLET SL PRN (10:27)
[2019-03-31] MEDS: PRENATAL VITAMINS W/ FOLIC ACID TABLET (FP) PO SCH (10:35)
[2019-03-31] MEDS: CALCIUM 250MG/VIT-D 125 UNITS 1 COMBO TABLET PO SCH (10:35)
[2019-03-31] MEDS: NIFEdipine E.R 60 MG TABLET (UD) PO SCH (10:35)
[2019-03-31] MEDS: CARVEDILOL 3.125 MG TABLET (FP) PO SCH ×2 (10:35→22:13)
[2019-03-31] MEDS: POTASSIUM CHLORIDE TABS 20 MEQ TABLET.ER (FP) PO SCH ×2 (10:35→22:12)
--- NOTE | 2019-03-31 15:01 | PN ---
S CIWA - CIWA Score Nausea/Vomitin-No Nausea/No Vomiting Muscle Tremors: 3 Anxiety: 3 Agitation: 3 Paroxysmal Sweats: 2 Orientation: 0-Oriented Tacttile Disturbances: 0-None Auditory Disturbances: 0-None Visual Disturbances: 0-None Headache: 0-None Present CIWA-Ar Total Score: 11 BHS Progress Note (SOAP) Subjective: nausea sweats shakes diarrhea Objective: 03/31/19 14:59 Vital Signs Temperature 98.6 F 03/31/19 14:18 Pulse Rate 95 H 03/31/19 14:18 Respiratory Rate 20 03/31/19 14:18 Blood Pressure 95/65 03/31/19 14:18 O2 Sat by Pulse Oximetry (%) Laboratory Tests 03/30/19 03/30/19 03/30/19 07:40 07:40 07:40 WBC 3.0 L RBC 3.68 L Hgb 11.7 Hct 34.1 L D MCV 92.5 MCH 31.9 MCHC 34.5 RDW 13.3 Plt Count 247 MPV 8.7 D Sodium 142 Potassium 3.3 L Chloride 111 H Carbon Dioxide 24 Anion Gap 7 L BUN 5.9 L Creatinine 1.1 Est GFR (CKD-EPI)AfAm 87.13 Est GFR (CKD-EPI)NonAf 75.17 Random Glucose 102 Calcium 8.2 L Total Bilirubin 0.3 AST 12 L ALT 14 Alkaline Phosphatase 56 Total Protein 6.3 L Albumin 3.1 L RPR Titer Nonreactive aaox3 ambulating no acute distress Assessment: 03/31/19 15:00 withdrawal sx Plan: continue detox increase fluids immodium prn zofran prn
[2019-03-31] MEDS ORDERED: LOPERAMIDE HCL 2 MG CAPSULE PO PRN (15:38)
[2019-03-31] MEDS: ATORVASTATIN CA 10 MG TABLET (FP) PO SCH (22:12)
[2019-03-31] MEDS: chlordiazePOXIDE HCL 10 MG CAPSULE PO SCH (22:12)
[2019-03-31] MEDS: QUEtiapine FUMARATE 100 MG TABLET (FP) PO SCH (22:12)
[2019-03-31] MEDS: THIAMINE HCL 100 MG TABLET (FP) PO SCH (22:13)
[2019-03-31] MEDS: ALBUTEROL SO4 8 GM HFA INHALER IH PRN (22:39)
[2019-03-31] MEDS ORDERED: chlordiazePOXIDE HCL 10 MG CAPSULE PO PRN (23:00)
[2019-04-01] MEDS: chlordiazePOXIDE HCL 10 MG CAPSULE PO SCH ×4 (05:57→22:03)
[2019-04-01] MEDS: NIFEdipine E.R 60 MG TABLET (UD) PO SCH (10:07)
[2019-04-01] MEDS: CARVEDILOL 3.125 MG TABLET (FP) PO SCH ×2 (10:07→22:03)
[2019-04-01] MEDS: POTASSIUM CHLORIDE TABS 20 MEQ TABLET.ER (FP) PO SCH (10:07)
[2019-04-01] MEDS: CALCIUM 250MG/VIT-D 125 UNITS 1 COMBO TABLET PO SCH (10:07)
[2019-04-01] MEDS: ALBUTEROL SO4 8 GM HFA INHALER IH PRN (10:08)
[2019-04-01] MEDS: PRENATAL VITAMINS W/ FOLIC ACID TABLET (FP) PO SCH (10:08)
[2019-04-01] MEDS ORDERED: DIPHENOXYLATE 2.5/ATROPINE.025 1 COMBO TABLET PO PRN (10:28)
--- NOTE | 2019-04-01 10:31 | PN ---
S CIWA - CIWA Score Nausea/Vomitin-No Nausea/No Vomiting Muscle Tremors: 2 Anxiety: 2 Agitation: 1-Slight > Activity Paroxysmal Sweats: 1-Minimal Palms Moist Orientation: 0-Oriented Tacttile Disturbances: 0-None Auditory Disturbances: 0-None Visual Disturbances: 0-None Headache: 0-None Present CIWA-Ar Total Score: 6 BHS Progress Note (SOAP) Subjective: diarrhea sweats anxiety Objective: 04/01/19 10:30 Vital Signs Temperature 98.1 F 04/01/19 09:24 Pulse Rate 90 04/01/19 09:24 Respiratory Rate 17 04/01/19 09:24 Blood Pressure 115/65 04/01/19 09:24 O2 Sat by Pulse Oximetry (%) aaox3 ambulating no acute distress Assessment: 04/01/19 10:30 mild withdrawal sx Plan: continue detox increase fluids lomotil ordered
[2019-04-01] MEDS ORDERED: DICYCLOMINE HCL 10 MG CAPSULE PO PRN (10:36)
--- NOTE | 2019-04-01 10:51 | PN ---
[facility] Progress Note Note: pt was standing against wall during medication when he felt dizzy and passed out. Pt landed on floor on his right side. Pt was evaluated he was responding appropriately.. BP 103/78, HR 100, tep 97.7 98%RA. Pt was able to get up from the floor and ambulate to his room with assist. ED at [facility] was called report given to Dr. Cantu. Pt was sent via ambulette for evaluation.
[2019-04-01] MEDS ORDERED: DIPHENOXYLATE 2.5/ATROPINE.025 1 COMBO TABLET PO ONE (10:55)
--- NOTE | 2019-04-01 13:35 | PN ---
S CIWA - CIWA Score Nausea/Vomitin-No Nausea/No Vomiting Muscle Tremors: 3 Anxiety: 1-Mildly Anxious Agitation: 1-Slight > Activity Paroxysmal Sweats: 1-Minimal Palms Moist Orientation: 0-Oriented Tacttile Disturbances: 0-None Auditory Disturbances: 0-None Visual Disturbances: 0-None Headache: 0-None Present CIWA-Ar Total Score: 6 BHS Progress Note (SOAP) Subjective: diarrhea sweats Objective: 04/01/19 0900 Vital Signs Temperature 98.1 F 04/01/19 09:24 Pulse Rate 90 04/01/19 09:24 Respiratory Rate 04/01/19 09:24 Blood Pressure 115/65 04/01/19 09:24 O2 Sat by Pulse Oximetry (%) aaox3 lying in bed no acute distress Assessment: 04/01/19 13:35 mild withdrawal sx Plan: continue with detox increase fluids lomotil ordered
[2019-04-01] MEDS: ATORVASTATIN CA 10 MG TABLET (FP) PO SCH (22:03)
[2019-04-01] MEDS: THIAMINE HCL 100 MG TABLET (FP) PO SCH (22:03)
[2019-04-01] MEDS: QUEtiapine FUMARATE 100 MG TABLET (FP) PO SCH (22:03)
--- NOTE | 2019-04-02 10:25 | PN ---
S CIWA - CIWA Score Nausea/Vomitin-No Nausea/No Vomiting Muscle Tremors: 2 Anxiety: 1-Mildly Anxious Agitation: 1-Slight > Activity Paroxysmal Sweats: No Perspiration Orientation: 0-Oriented Tacttile Disturbances: 0-None Auditory Disturbances: 0-None Visual Disturbances: 0-None Headache: 0-None Present CIWA-Ar Total Score: 4 BHS Progress Note (SOAP) Subjective: feeling much better anxiety less diarrhea Objective: 04/02/19 10:24 Vital Signs Temperature 98.2 F 04/02/19 09:59 Pulse Rate 92 H 04/02/19 09:59 Respiratory Rate 18 04/02/19 09:59 Blood Pressure 107/52 L 04/02/19 09:59 O2 Sat by Pulse Oximetry (%) aaox3 ambulating no acute distress Assessment: 04/02/19 10:24 mild withdrawal sx Plan: continue detox increase fluids d/c in am
[2019-04-02] MEDS: PRENATAL VITAMINS W/ FOLIC ACID TABLET (FP) PO SCH (11:01)
[2019-04-02] MEDS: CALCIUM 250MG/VIT-D 125 UNITS 1 COMBO TABLET PO SCH (11:01)
[2019-04-02] MEDS: chlordiazePOXIDE HCL 10 MG CAPSULE PO SCH (11:02)
[2019-04-02] MEDS: CARVEDILOL 3.125 MG TABLET (FP) PO SCH (11:03)
[2019-04-02] MEDS: NIFEdipine E.R 60 MG TABLET (UD) PO SCH (11:04)
--- NOTE | 2019-04-02 11:32 | PN ---
S Progress Note Note: pt states he has an appt with his HIV doctor at [facility] and is feeling fine. Pt was re-assessed no s/s of withdrawals noted. pt will be d/c this afternoon.
--- NOTE | 2019-04-02 11:36 | DS ---
[facility] Detox Discharge Summary Admission Date: 03/29/19 Discharge Date: 04/02/19 - History Present History: Alcohol Dependence, Cannabis Dependence, Cocaine Dependence - Physical Exam Results Vital Signs: Vital Signs Temperature 98.0 F 04/02/19 10:45 Pulse Rate 78 04/02/19 10:45 Respiratory Rate 20 04/02/19 10:45 Blood Pressure 127/70 04/02/19 10:45 O2 Sat by Pulse Oximetry (%) - Treatment Hospital Course: Detox Protocol Followed, Detoxed Safely, Responded well, Discharged Condition Good, Rehab Referral Accepted - Medication Discharge Medications: Ambulatory Orders Quetiapine Fumarate [Seroquel] 100 tab PO HS 12/29/17 Albuterol Sulfate Inhaler - [Ventolin Hfa Inhaler -] 1 - 2 inh PO Q4H 03/29/19 Carvedilol [Coreg -] 3.125 mg PO BID 03/29/19 Fluticasone/Umeclidin/Vilanter [Trelegy Ellipta 100-62.5-25] 1 each IH BID 03/29 Pravastatin Sodium [Pravachol (Nf)] 40 mg PO HS 03/29/19 Chlordiazepoxide [Librium -] 10 mg PO Q6HPO 04/01/19 Loperamide HCl [Imodium -] 4 mg PO QID 04/01/19 Nifedipine [Procardia Xl] 60 mg PO DAILY 04/01/19 Thiamine Mononitrate [Vitamin B-1] 100 mg PO HS 04/01/19 - Diagnosis (1) Alcohol dependence with uncomplicated withdrawal Current Visit: Yes Status: Chronic (2) Cardiac murmur Current Visit: Yes Status: Acute (3) Nystagmus Current Visit: Yes Status: Chronic (4) Cannabis dependence Current Visit: Yes Status: Chronic (5) Cocaine dependence Current Visit: Yes Status: Chronic Qualifiers: Substance use status: uncomplicated Qualified Code(s): F14.20 - Cocaine dependence, uncomplicated (6) History of COPD Current Visit: Yes Status: Chronic (7) Human immunodeficiency virus infection Current Visit: Yes Status: Chronic (8) Hypertension Current Visit: Yes Status: Chronic Qualifiers: Hypertension type: essential hypertension Qualified Code(s): I10 - Essential (primary) hypertension (9) Insomnia Current Visit: Yes Status: Chronic (10) Substance induced mood disorder Current Visit: Yes Status: Chronic (11) Azotemia Current Visit: No Status: Acute (12) Diarrhea Current Visit: Yes Status: Chronic Qualifiers: Diarrhea type: unspecified type Qualified Code(s): R19.7 - Diarrhea, unspecified (13) Left leg pain Current Visit: No Status: Acute (14) GERD (gastroesophageal reflux disease) Current Visit: Yes Status: Chronic (15) MDD (major depressive disorder) Current Visit: No Status: Chronic (16) Weight loss Current Visit: No Status: Chronic - AMA Did Patient Leave Against Medical Advice: No (going to his PCP)
[2019-04-02 14:36] VITALS: BP 121/80; PULSE 90; TEMP 97
== END 2019-04-02 13:45 | disposition home or self-care (01) | DRG 897 ==
LOC: YASAS 12:00 → Y6N 18:51
PROVIDERS: ADMIT Surgery; ATTEND Surgery
PROC: HZ2ZZZZ Detoxification Services for Substance Abuse Treatment (ICD-10-PCS; principal; 2019-03-29)
DX: F10.230 Alcohol dependence with withdrawal, uncomplicated (principal); F14.20 Cocaine dependence, uncomplicated; F33.9 Major depressive disorder, recurrent, unspecified; F12.20 Cannabis dependence, uncomplicated; F19.24 Other psychoactive substance dependence with psychoactive substance-induced mood disorder; Z21 Asymptomatic human immunodeficiency virus [HIV] infection status; E83.51 Hypocalcemia; E87.6 Hypokalemia; H55.00 Unspecified nystagmus; I10 Essential (primary) hypertension; R01.1 Cardiac murmur, unspecified; K21.9 Gastro-esophageal reflux disease without esophagitis; R79.89 Other specified abnormal findings of blood chemistry; J44.9 Chronic obstructive pulmonary disease, unspecified; R55 Syncope and collapse; M79.605 Pain in left leg; R63.4 Abnormal weight loss; Z68.23 Body mass index [BMI] 23.0-23.9, adult
CPT/HCPCS: 36415; 70450-TC; 74177-TC; 80053; 81003; 83605; 83690; 84484; 85025; 85027; 86593; 87086; 93005; 93010; 96374; 99284-25; J0735; Q0162

== ENCOUNTER 2019-04-01 11:52 | Emergency (ER) | payer OTHER ==
[2019-04-01 12:01] VITALS: BP 99/69; PULSE 85; TEMP 97.7; BMI 23.6
--- NOTE | 2019-04-01 12:29 | PDOC ---
Attending Attestation - Resident Resident Name: Julio Sweet - ED Attending Attestation I have performed the following: I have examined & evaluated the patient, The case was reviewed & discussed with the resident, I agree w/resident's findings & plan, Exceptions are as noted - HPI HPI: 04/01/19 12:27 54yo M hx COPD, ?[place], HIV (VL undetectalbe, CD >400), HTN presents to the ED from [facility] for diarrhea for 2 days and a fall. Pt reports diffuse abd pain, worse right before bowel movement. States he has had many episodes of non bloody brown water diarrhea and has not been eating as he has had poor appetite. Pt reports while walking at rehab today, he felt suddenly weak in his legs and knelt down on the ground. He denies falling, passing out. He denies injuries, no head strike or LOC. HE was helped up by [facility] staff afterwards and 911 was called. He reports feeling dehydrated. Pt is in rehab for etoh/ crack abuse. He denies recent CP, SOB, headache, focal weakness/numbness, LE edema, rashes. - Physicial Exam PE: 04/01/19 17:13 GENERAL: Awake, alert, and fully oriented, in no acute distress. Appears comfortable HEAD: No signs of trauma EYES: PERRLA, EOMI, sclera anicteric, conjunctiva clear ENT: Auricles normal inspection, hearing grossly normal, nares patent, oropharynx clear without exudates. Moist mucosa NECK: Normal ROM, supple, no lymphadenopathy, JVD, or masses LUNGS: Breath sounds equal, clear to auscultation bilaterally. No wheezes, and no crackles HEART: Regular rate and rhythm, normal S1 and S2, no murmurs, rubs or gallops ABDOMEN: Soft, diffuse mild ttp including RLQ, normoactive bowel sounds. No guarding, no rebound. No masses EXTREMITIES: Normal range of motion, no edema. No clubbing or cyanosis. No cords, erythema, or tenderness NEUROLOGICAL: Normal speech, cranial nerves intact, 5/5 strength in all 4 extremities, normal sensation to light touch in all 4 extremities, normal cerebellar exam, normal gait, normal tone SKIN: Warm, Dry, normal turgor, no rashes or lesions noted. - Medical Decision Making 04/01/19 14:16 54yo M presents to the ED with diarrhea, abdominal pain, and pre-syncope Vitals unremarkable Exam with diffuse abd ttp DDx includes appendicitis vs colitis vs gastroenteritis Plan for labs, UA, CTAP, reassess 04/01/19 17:28 Pt feeling much better with fluids No abd ttp CTAP with no acute findings, mild CBD dilation which needs non emergent f/u. This has been communicated to pt With regards to unintentional weight loss, discussed with pt the importance of f /u with a PMD for further w/u including colonoscopy etc Pt expresses understanding, requests return back to [facility] I discussed the physical exam findings, ancillary test results and final diagnoses with the patient. I answered all of the patient's questions. The patient was satisfied with the care received and felt comfortable with the discharge plan and treatment plan. The patient will call their primary care physician within 24 hours to arrange follow-up and will return to the Emergency Department with any new, persistent or worsening symptoms. Heart Score/ECG Review #1 04/01/19 18:55 Twelve-lead EKG was performed and reviewed by me. Normal sinus rhythm, rate 81. Normal axis. No ST elevations. T wave changes and almost all leads including flattening inferiorly and inversions in V4 to V6. When compared to EKG from , no significant changes.
[2019-04-01] MEDS ORDERED: ONDANSETRON 4 MG/2 ML VIAL IVPUSH ONE (12:37)
[2019-04-01] MEDS ORDERED: LACTATED RINGERS SOLUTION 1000 ML INFUS.BAG IV ONE (12:37)
--- NOTE | 2019-04-01 12:51 | PDOC ---
History of Present Illness - General Chief Complaint: Diarrhea Stated Complaint: FALL Time Seen by Provider: 04/01/19 12:13 History Source: Patient, Old Records Exam Limitations: No Limitations - History of Present Illness Initial Comments: HPI: 54 y/o male presenting to [facility] ER from [facility] complaining of watery diarrhea, vomiting, and abdominal pain x2 days. Abd described as constant and diffuse surrounding midline without radiation to back. Experienced leg weakness while walking this afternoon. Fell to his knees but did not pass out. Denies striking his head or neck. Was helpt to feet afterward. Denies blood in vomit or diarrhea. Decreased PO intake over duration of symptoms. Endorses 15-20lb unintentional weight loss over the past 3 months with night sweats. Denies familial cancer history. Social Hx: Endorses history of EtOH and crack cocaine (smoked, never injected). Last used on (28 March 2019). Presented to detox on Monday (30 March 2019). Last detoxed one year ago. Denies experiencing similar symptoms at that time. - Former smoker Medical Hx: - COPD - silent heart attack per [facility] physician - HIV (undetectable viral load; CD4 495 last month per Pt). On HAART therapy. - HTN Surgical Hx: - Pt denies past surgical history. Review of Systems: In addition to that documented in the HPI above, the additional ROS was obtained : Constitutional: Denies fevers or chills Head: Denies vision changes ENMT: Denies sore throat CV: Denies chest pain Resp: Denies acute SOB GI: Per HPI : Denies painful urination MSK: Denies recent trauma Skin: Denies new rashes Neuro: Denies new numbness or tingling or weakness Endocrine: Denies polyuria Heme: Denies bleeding or bruising Physical Examination: Constitutional: Well-developed, well-nourished adult male in no acute distress but obvious discomfort. Found semi-fowlers on hospital hallway bed. Alert and oriented x4. Answered all questions appropriately and completely. Speech was non -labored, non-pressured. Head: Normocephalic. No obvious external signs of trauma. Neck: Supple, trachea is midline. No c-spine tenderness. Able to actively rotate neck to R and L >45 degrees. Cardiovascular / Chest: Regular rate and regular rhythm. No murmur, rubs, clicks , or gallops. Peripheral pulses: radial pulses full. No anterior chest wall pain. Respiratory: Breathing unlabored. Equal chest rise and fall. Clear to auscultation bilaterally. No stridor, no wheezing, no rhonchi. Gastrointestinal: abdomen is tender in RLQ with rebound and grimace. Palpation in LLQ induces pain RLQ. Abdomen is non-distended. No pulsatile masses. No overlying skin lesions or obvious signs of trauma. Neuro: Alert and oriented. Moving all four extremities spontaneously. Gait normal. Observed walking through the department unassisted without difficulty. Skin: Warm, dry, and intact. Psych: Affect: appropriate. Mood: normal. MDM: *Reviewed vital signs, nursing notes, and prior visit documentation (if available). 54 y/o male presenting with nausea, vomiting, and right lower quadrant abdominal pin for the past two days. Undergoing detox for EtOH and crack cocaine abuse. Afebrile. Vitals unremarkable for hypotension or tachycardia. Physical exam as described above. Possible appendicitis versus opiate withdrawal versus acute gastroenteritis. Ordered EKG and troponin given the pt s cardiac history and the episode of weakness. EKG unremarkable for ischemic findings. Troponin not elevated. Low suspicion for ACS. Pt continues to deny chest pain. CBC unremarkable for leukocytosis. CMP unremarkable for significant electrolyte derangement. Lipase not elevated. CT scan unremarkable for signs of acute appendicitis. Signs of acute diarrheal illness without colonic inflammation. Main pancreatic duct is seen; likely an incidental finding. Discussed importance of PCP f/w with pt. Pt re-examined. Repeat abd exam unchanged from previous. No acute abdominal signs. Pt to be discharged back to [facility]. Julio Sweet M.D., PGY1 Emergency Medicine Resident Past History - Past Medical History Allergies/Adverse Reactions: Allergies Allergy/AdvReac Type Severity Reaction Status Date / Time fish derived Allergy Severe Swelling Verified 04/01/19 11:59 shellfish derived Allergy Severe Swelling Verified 04/01/19 11:59 No Known Drug Allergies Allergy Verified 04/01/19 11:59 seafood Allergy Severe Swelling Uncoded 04/01/19 11:59 Home Medications: Ambulatory Orders Quetiapine Fumarate [Seroquel] 100 tab PO HS 12/29/17 Albuterol Sulfate Inhaler - [Ventolin Hfa Inhaler -] 1 - 2 inh PO Q4H 03/29/19 Carvedilol [Coreg -] 3.125 mg PO BID 03/29/19 Fluticasone/Umeclidin/Vilanter [Trelegy Ellipta 100-62.5-25] 1 each IH BID 03/29 Pravastatin Sodium [Pravachol (Nf)] 40 mg PO HS 03/29/19 Chlordiazepoxide [Librium -] 10 mg PO Q6HPO 04/01/19 Loperamide HCl [Imodium -] 4 mg PO QID 04/01/19 Nifedipine [Procardia Xl] 60 mg PO DAILY 04/01/19 Thiamine Mononitrate [Vitamin B-1] 100 mg PO HS 04/01/19 Anemia: No Asthma: No Cancer: No Cardiac Disorders: No CVA: No COPD: No CHF: No Dementia: No Diabetes: No GI Disorders: No Disorders: No HTN: Yes (Drug induced in the past.) Hypercholesterolemia: No Kidney Stones: No Liver Disease: No Seizures: No Thyroid Disease: No - Surgical History Abdominal Surgery: No Appendectomy: No Cardiac Surgery: No Cholecystectomy: No Lung Surgery: No Neurologic Surgery: No Orthopedic Surgery: No - Reproductive History Testicular Surgery: No - Immunization History Immunization Up to Date: Yes - Suicide/Smoking/Psychosocial Hx Smoking History: Current some day smoker Have you smoked in the past 12 months: Yes Number of Cigarettes Smoked Daily: 6 If you are a former smoker, when did you quit?: 5 months ago Cigars Per Day: 0 Information on smoking cessation initiated: No 'Breaking Loose' booklet given: 03/29/19 Hx Alcohol Use: Yes Drug/Substance Use Hx: Yes Substance Use Type: Alcohol, Cocaine Hx Substance Use Treatment: Yes (detox, rehab) *Physical Exam - Vital Signs Last Vital Signs Temp Pulse Resp BP Pulse Ox 97.7 F 85 20 99/69 95 04/01/19 11:59 04/01/19 11:59 04/01/19 11:59 04/01/19 11:59 04/01/19 11:59 ED Treatment Course - LABORATORY CBC & Chemistry Diagram: 04/01/19 12:55 04/01/19 13:05 - RADIOLOGY Radiology Studies Ordered: Category Date Time Status ABDOMEN & PELVIS CT WITH CONTR [CT] Stat CT Scan 04/01/19 12:35 Ordered *DC/Admit/Observation/Transfer Diagnosis at time of Disposition: Diarrhea Qualifiers: Diarrhea type: unspecified type Qualified Code(s): R19.7 - Diarrhea, unspecified Abdominal pain Qualifiers: Abdominal location: right lower quadrant Qualified Code(s): R10.31 - Right lower quadrant pain - Discharge Dispostion Disposition: HOME Condition at time of disposition: Good Decision to Admit order: No - Referrals - Patient Instructions Printed Discharge Instructions: DI for Diarrhea and Traveler's Diarrhea -- Adult Additional Instructions: You were seen today for abdominal pain and diarrhea for the past two days. Your blood work and CT scan did not show any emergent cause of your symptoms. The diarrhea may be related to your detox process. Make sure you stay hydrated over the next several days. Return to [facility] for further help with the detox process. Your CT scan did show a slight abnormality in your pancreatic duct. This is not an emergency but something for which you need to follow up with your primary care doctor. I have attached a copy of the CT scan report to this packet. Follow up with your primary care doctor within 1 week for further evaluation of your weight loss. This may be a sign of cancer. While we did not see cancer on the CT scan of your abdomen, make sure you follow up for more testing including colonoscopy, labs tests, etc. Please return to the emergency department if your symptoms become worse or you feel like you need additional emergency evaluation. Print Language: HEBREW - Post Discharge Activity
[2019-04-01] MEDS ORDERED: ONDANSETRON 4 MG/2 ML VIAL ONE (12:55)
[2019-04-01 13:21] LABS: BASO % 0.4 % (0-2.0); EOS % 9.7 % (0-4.5); HEMATOCRIT 38.7 % (35.4-49); HEMOGLOBIN 13.2 GM/dL (11.7-16.9); LYMPH % 39.7 % (8-40); MCH 31.8 pg (25.7-33.7); MCHC 34.2 g/dl (32.0-35.9); MEAN CELL VOLUME 92.9 fl (80-96); MEAN PLT VOLUME 8.3 fl (7.5-11.1); MONO % 6.6 % (3.8-10.2); NEUT % 43.6 % (42.8-82.8); PLATELET COUNT 284 K/MM3 (134-434); RBC 4.17 M/mm3 (4.00-5.60); RDW 13.7 % (11.9-15.9); WHITE BLOOD COUNT 5.4 K/mm3 (4.0-10.0)
[2019-04-01 13:41] LABS: ALBUMIN 3.5 g/dl (3.4-5.0); ALK PHOS 65 U/L (45-117); ANION GAP 5 MMOL/L (8-16); BILIRUBIN,TOTAL 0.2 mg/dL (0.2-1); BLOOD UREA NITROGEN 10.9 mg/dL (7-18); CALCIUM 8.9 mg/dL (8.5-10.1); CHLORIDE 112 mmol/L (98-107); CO2 24 mmol/L (21-32); CREATININE 1.1 mg/dL (0.55-1.3); GLUCOSE,RANDOM 82 mg/dL (74-106); LIPASE 322 U/L (73-393); POTASSIUM 4.5 mmol/L (3.5-5.1); SGOT/AST 20 U/L (15-37); SGPT/ALT 24 U/L (13-61); SODIUM 140 mmol/L (136-145); TOT PROT 7.2 g/dl (6.4-8.2)
--- NOTE | 2019-04-01 15:12 | EKG ---
Test Reason : Blood Pressure : / mmHG Vent. Rate : 081 BPM Atrial Rate : 081 BPM P-R Int : 154 ms QRS Dur : 080 ms QT Int : 380 ms P-R-T Axes : 045 049 006 degrees QTc Int : 441 ms NORMAL SINUS RHYTHM T WAVE ABNORMALITY, CONSIDER LATERAL ISCHEMIA ABNORMAL ECG WHEN COMPARED WITH ECG OF 05-JAN-2018 07:54, NO SIGNIFICANT CHANGE WAS FOUND Confirmed by EDY GALLEGO MD ([id number]) on 04/01/2019 3:12:10 PM Referred By: Confirmed By:EDY GALLEGO MD
[2019-04-01 19:25] LABS: URINE APPEARANCE CLEAR; URINE COLOR YELLOW
[2019-04-01 19:26] LABS: URINE BILIRUBIN NEGATIVE (NEGATIVE); URINE GLUCOSE (UA) NEGATIVE (NEGATIVE); URINE KETONE NEGATIVE (NEGATIVE); URINE PROTEIN NEGATIVE (NEGATIVE); URINE UROBILINOGEN 0.2 mg/dL (0.2-1.0)
[2019-04-01 19:27] LABS: URINE LEUK ESTERASE NEGATIVE (NEGATIVE); URINE NITRITE NEGATIVE (NEGATIVE)
== END 2019-04-01 20:15 | disposition home or self-care (01) ==
LOC: JER 11:52
PROC: 3E0337Z Introduction of Electrolytic and Water Balance Substance into Peripheral Vein, Percutaneous Approach (ICD-10-PCS; principal; 2019-04-01)
DX: R10.31 Right lower quadrant pain (principal); R19.7 Diarrhea, unspecified; I10 Essential (primary) hypertension; F10.10 Alcohol abuse, uncomplicated; F14.10 Cocaine abuse, uncomplicated; Z21 Asymptomatic human immunodeficiency virus [HIV] infection status; Z87.891 Personal history of nicotine dependence
CPT/HCPCS: 36415; 74177-TC; 80053; 81003; 83605; 83690; 84484; 85025; 87086; 93005; 93010; 96374; 99284-25

== ENCOUNTER 2022-01-05 10:16 | Inpatient (IN) | payer OTHER ==
[2022-01-05] MEDS ORDERED: ONDANSETRON *ODT* 4 MG TABLET SL PRN (11:01)
[2022-01-05] MEDS ORDERED: MENTHOL/PHENOL 1 EACH UD MM PRN (11:01)
[2022-01-05] MEDS ORDERED: ACETAMINOPHEN 325 MG TABLET (FP) PO PRN ×2 (11:01)
[2022-01-05] MEDS ORDERED: MAGNESIUM CITRATE 300 ML BOTTLE PO PRN (11:01)
[2022-01-05] MEDS ORDERED: BISMUTH SUBSALICYLATE 262 MG/15 ML BTL PO PRN (11:01)
[2022-01-05] MEDS ORDERED: NICOTINE 10 MG CARTRIDGE (INHALER) IH PRN (11:01)
[2022-01-05] MEDS ORDERED: MAGNESIUM HYDROX 2400MG/30ML ORAL SUSPENSION 30 ML CUP PO PRN (11:01)
[2022-01-05] MEDS ORDERED: MAG HYDROX/AL HYDROX/SIMETH 30 ML UNIT-DOSE CUP PO PRN (11:01)
[2022-01-05] MEDS ORDERED: LOPERAMIDE HCL 2 MG CAPSULE PO PRN (11:01)
[2022-01-05] MEDS ORDERED: IBUPROFEN 400 MG TABLET (FP) PO PRN (11:01)
[2022-01-05] MEDS ORDERED: ALBUTEROL SO4 HFA INHALER IH SCH (11:15)
[2022-01-05 11:35] VITALS: BMI 23.4
[2022-01-05] MEDS ORDERED: ALBUTEROL SO4 HFA INHALER IH PRN (12:57)
[2022-01-05] MEDS: PRENATAL VITAMINS W/ FOLIC ACID TABLET (FP) PO SCH (14:26)
[2022-01-05] MEDS: hydrOXYzine PAMOATE 25 MG CAPSULE (FP) PO SCH ×3 (14:43→22:24)
[2022-01-05 18:06] LABS: HEMOGLOBIN 13.9 GM/dL (11.7-16.9); MCH 30.7 pg (25.7-33.7); MEAN CELL VOLUME 90.1 fl (80-96); MEAN PLT VOLUME 8.9 fl (7.5-11.1); PLATELET COUNT 278 10^3/uL (134-434); RBC 4.55 M/mm3 (4.00-5.60); RDW 14.4 % (11.9-15.9); WHITE BLOOD COUNT 5.8 K/mm3 (4.0-10.0)
[2022-01-05 18:19] LABS: CALCIUM 9.5 mg/dL (8.5-10.1)
[2022-01-05 18:20] LABS: BLOOD UREA NITROGEN 11.8 mg/dL (7-18)
[2022-01-05 18:22] LABS: CREATININE 1.2 mg/dL (0.55-1.3)
[2022-01-05 18:24] LABS: BILIRUBIN,TOTAL 0.5 mg/dL (0.2-1); TOT PROT 7.8 g/dl (6.4-8.2)
[2022-01-05] MEDS ORDERED: chlordiazePOXIDE HCL 25 MG CAPSULE PO ONE (18:38)
[2022-01-05] MEDS ORDERED: chlordiazePOXIDE HCL 25 MG CAPSULE PO PRN (18:38)
[2022-01-05] MEDS ORDERED: FLUTICASONE/UMECLIDIN/VILANTER(100-62.5-25 TRELEGY ELLIPTA) INAHLER IH SCH (22:00)
[2022-01-05] MEDS: THIAMINE HCL 100 MG TABLET (FP) PO SCH (22:23)
[2022-01-05] MEDS: CARVEDILOL 3.125 MG TABLET (FP) PO SCH (22:24)
[2022-01-05] MEDS: ATORVASTATIN CA 10 MG TABLET (FP) PO SCH (22:24)
[2022-01-05] MEDS: chlordiazePOXIDE HCL 25 MG CAPSULE PO SCH (22:24)
[2022-01-05] MEDS: MELATONIN 5 MG TABLETS PO SCH (22:25)
[2022-01-05] MEDS: QUEtiapine FUMARATE 100 MG TABLET (FP) PO SCH (22:25)
[2022-01-06] MEDS: chlordiazePOXIDE HCL 25 MG CAPSULE PO SCH ×4 (05:14→22:06)
[2022-01-06] MEDS: hydrOXYzine PAMOATE 25 MG CAPSULE (FP) PO SCH ×5 (05:14→22:06)
[2022-01-06] MEDS ORDERED: BICTEGRAV/EMTRICIT/TENOFOV (BIKTARVY) 50-200-25 MG TABLET PO SCH (10:00)
[2022-01-06] MEDS: PRENATAL VITAMINS W/ FOLIC ACID TABLET (FP) PO SCH (10:10)
[2022-01-06] MEDS: BICTEGRAV/EMTRICIT/TENOFOV (BIKTARVY) 50-200-25 MG TABLET PO SCH (10:11)
[2022-01-06] MEDS: NIFEdipine E.R 60 MG TABLET PO SCH (10:11)
[2022-01-06] MEDS: FLUTICASONE/UMECLIDIN/VILANTER(100-62.5-25 TRELEGY ELLIPTA) INAHLER IH SCH (10:11)
[2022-01-06] MEDS: CARVEDILOL 3.125 MG TABLET (FP) PO SCH ×2 (10:11→22:06)
[2022-01-06] MEDS: MELATONIN 5 MG TABLETS PO SCH (22:06)
[2022-01-06] MEDS: ATORVASTATIN CA 10 MG TABLET (FP) PO SCH (22:06)
[2022-01-06] MEDS: THIAMINE HCL 100 MG TABLET (FP) PO SCH (22:06)
[2022-01-06] MEDS: QUEtiapine FUMARATE 100 MG TABLET (FP) PO SCH (22:06)
[2022-01-07] MEDS: chlordiazePOXIDE HCL 10 MG CAPSULE PO SCH ×4 (05:13→23:10)
[2022-01-07] MEDS: hydrOXYzine PAMOATE 25 MG CAPSULE (FP) PO SCH ×5 (05:14→22:04)
[2022-01-07] MEDS: BICTEGRAV/EMTRICIT/TENOFOV (BIKTARVY) 50-200-25 MG TABLET PO SCH (08:35)
[2022-01-07 10:07] LABS: SARS-CoV-2 NAA Not Detected (Not Detected)
[2022-01-07] MEDS: CARVEDILOL 3.125 MG TABLET (FP) PO SCH ×2 (10:18→23:10)
[2022-01-07] MEDS: PRENATAL VITAMINS W/ FOLIC ACID TABLET (FP) PO SCH (10:18)
[2022-01-07] MEDS: METHOCARBAMOL 500 MG TABLET PO PRN ×3 (10:18→23:12)
[2022-01-07] MEDS: NIFEdipine E.R 60 MG TABLET PO SCH (10:19)
[2022-01-07] MEDS: FLUTICASONE/UMECLIDIN/VILANTER(100-62.5-25 TRELEGY ELLIPTA) INAHLER IH SCH (10:21)
[2022-01-07] MEDS: THIAMINE HCL 100 MG TABLET (FP) PO SCH (22:04)
[2022-01-07] MEDS: QUEtiapine FUMARATE 100 MG TABLET (FP) PO SCH (23:10)
[2022-01-07] MEDS: ATORVASTATIN CA 10 MG TABLET (FP) PO SCH (23:10)
[2022-01-07] MEDS: MELATONIN 5 MG TABLETS PO SCH (23:10)
[2022-01-08] MEDS ORDERED: chlordiazePOXIDE HCL 10 MG CAPSULE PO PRN
[2022-01-08] MEDS ORDERED: chlordiazePOXIDE HCL 10 MG CAPSULE PO SCH (05:00)
[2022-01-08] MEDS: hydrOXYzine PAMOATE 25 MG CAPSULE (FP) PO SCH ×2 (05:24→10:06)
[2022-01-08 09:32] VITALS: BP 108/74; PULSE 81; TEMP 97.3
[2022-01-08] MEDS: FLUTICASONE/UMECLIDIN/VILANTER(100-62.5-25 TRELEGY ELLIPTA) INAHLER IH SCH (10:06)
[2022-01-08] MEDS: NIFEdipine E.R 60 MG TABLET PO SCH (10:06)
[2022-01-08] MEDS: PRENATAL VITAMINS W/ FOLIC ACID TABLET (FP) PO SCH (10:06)
[2022-01-08] MEDS: CARVEDILOL 3.125 MG TABLET (FP) PO SCH (10:06)
[2022-01-08] MEDS: BICTEGRAV/EMTRICIT/TENOFOV (BIKTARVY) 50-200-25 MG TABLET PO SCH (10:06)
[2022-01-09] MEDS ORDERED: chlordiazePOXIDE HCL 10 MG CAPSULE PO ONE (05:00)
== END 2022-01-08 11:26 | disposition left against medical advice (07) | DRG 894 ==
LOC: YASAS 10:16 → Y6N 12:10
PROVIDERS: ADMIT Allergy & Immunology; ATTEND Allergy & Immunology
PROC: HZ2ZZZZ Detoxification Services for Substance Abuse Treatment (ICD-10-PCS; principal; 2022-01-05)
DX: F10.230 Alcohol dependence with withdrawal, uncomplicated (principal); F14.20 Cocaine dependence, uncomplicated; F19.282 Other psychoactive substance dependence with psychoactive substance-induced sleep disorder; F17.210 Nicotine dependence, cigarettes, uncomplicated; F19.24 Other psychoactive substance dependence with psychoactive substance-induced mood disorder; Z21 Asymptomatic human immunodeficiency virus [HIV] infection status; I10 Essential (primary) hypertension; J45.909 Unspecified asthma, uncomplicated; G47.00 Insomnia, unspecified
CPT/HCPCS: 36415; 71046-TC-FY; 80053; 85027; 86780; C9803-CS; U0003; U0005

== ENCOUNTER 2022-03-24 11:59 | Inpatient (IN) | payer OTHER ==
[2022-03-24 12:44] VITALS: BMI 21.4
[2022-03-24] MEDS ORDERED: BENZOCAINE/MENTHOL (CHLORASEPTIC ) LOZENGE MM PRN (13:07)
[2022-03-24] MEDS ORDERED: IBUPROFEN 600 MG TABLET (FP) PO PRN (13:07)
[2022-03-24] MEDS ORDERED: IBUPROFEN 400 MG TABLET (FP) PO PRN (13:07)
[2022-03-24] MEDS ORDERED: ACETAMINOPHEN 325 MG TABLET (FP) PO PRN ×2 (13:07)
[2022-03-24] MEDS ORDERED: NICOTINE 10 MG CARTRIDGE (INHALER) IH PRN (13:07)
[2022-03-24] MEDS ORDERED: DICYCLOMINE HCL 10 MG CAPSULE PO PRN (13:07)
[2022-03-24] MEDS ORDERED: chlordiazePOXIDE HCL 25 MG CAPSULE PO PRN (13:07)
[2022-03-24] MEDS ORDERED: MAGNESIUM HYDROX 2400MG/30ML ORAL SUSPENSION 30 ML CUP PO PRN (13:07)
[2022-03-24] MEDS ORDERED: ONDANSETRON *ODT* 4 MG TABLET SL PRN (13:07)
[2022-03-24] MEDS ORDERED: METHOCARBAMOL 500 MG TABLET PO PRN (13:07)
[2022-03-24] MEDS ORDERED: MAGNESIUM CITRATE 300 ML BOTTLE PO PRN (13:07)
[2022-03-24] MEDS ORDERED: MAG HYDROX/AL HYDROX/SIMETH 30 ML UNIT-DOSE CUP PO PRN (13:07)
[2022-03-24] MEDS ORDERED: BISMUTH SUBSALICYLATE 524 MG/30 ML PO PRN (13:07)
[2022-03-24] MEDS ORDERED: LOPERAMIDE HCL 2 MG CAPSULE PO PRN (13:07)
[2022-03-24] MEDS: hydrOXYzine PAMOATE 25 MG CAPSULE (FP) PO SCH ×3 (19:36→22:40)
[2022-03-24] MEDS: chlordiazePOXIDE HCL 25 MG CAPSULE PO SCH ×2 (19:36→22:40)
[2022-03-24] MEDS: THIAMINE HCL 100 MG TABLET (FP) PO SCH (22:40)
[2022-03-24] MEDS: MELATONIN 5 MG TABLETS PO SCH (22:40)
[2022-03-25] MEDS: hydrOXYzine PAMOATE 25 MG CAPSULE (FP) PO SCH ×5 (05:19→22:27)
[2022-03-25] MEDS: chlordiazePOXIDE HCL 25 MG CAPSULE PO SCH ×4 (05:19→22:27)
[2022-03-25] MEDS: PRENATAL VITAMINS W/ FOLIC ACID TABLET (FP) PO SCH (10:22)
[2022-03-25] MEDS ORDERED: ALBUTEROL SO4 HFA INHALER IH PRN (10:38)
[2022-03-25 11:36] LABS: HEMATOCRIT 38.3 % (35.4-49); HEMOGLOBIN 13.7 GM/dL (11.7-16.9); MCH 32.3 pg (25.7-33.7); MCHC 35.6 g/dl (32.0-35.9); MEAN CELL VOLUME 90.5 fl (80-96); MEAN PLT VOLUME 10.3 fl (7.5-11.1); PLATELET COUNT 264 10^3/uL (134-434); RBC 4.23 M/mm3 (4.00-5.60); RDW 13.9 % (11.9-15.9); WHITE BLOOD COUNT 3.2 K/mm3 (4.0-10.0)
[2022-03-25 12:03] LABS: BLOOD UREA NITROGEN 6.8 mg/dL (7-18); CALCIUM 9.2 mg/dL (8.5-10.1)
[2022-03-25 12:04] LABS: ALBUMIN 3.5 g/dl (3.4-5.0)
[2022-03-25 12:06] LABS: CREATININE 1.3 mg/dL (0.55-1.3)
[2022-03-25 12:07] LABS: TOT PROT 7.1 g/dl (6.4-8.2)
[2022-03-25 12:11] LABS: BILIRUBIN,TOTAL 0.4 mg/dL (0.2-1)
[2022-03-25] MEDS: BICTEGRAV/EMTRICIT/TENOFOV (BIKTARVY) 50-200-25 MG TABLET PO SCH (16:02)
[2022-03-25] MEDS: THIAMINE HCL 100 MG TABLET (FP) PO SCH (22:26)
[2022-03-25] MEDS: MELATONIN 5 MG TABLETS PO SCH (22:27)
[2022-03-26] MEDS: hydrOXYzine PAMOATE 25 MG CAPSULE (FP) PO SCH ×5 (06:51→22:45)
[2022-03-26] MEDS: chlordiazePOXIDE HCL 25 MG CAPSULE PO SCH ×4 (06:51→22:47)
[2022-03-26] MEDS: BICTEGRAV/EMTRICIT/TENOFOV (BIKTARVY) 50-200-25 MG TABLET PO SCH (10:15)
[2022-03-26] MEDS: PRENATAL VITAMINS W/ FOLIC ACID TABLET (FP) PO SCH (10:15)
[2022-03-26] MEDS: THIAMINE HCL 100 MG TABLET (FP) PO SCH (22:45)
[2022-03-26] MEDS: MELATONIN 5 MG TABLETS PO SCH (22:45)
[2022-03-27] MEDS ORDERED: chlordiazePOXIDE HCL 10 MG CAPSULE PO PRN
[2022-03-27] MEDS: chlordiazePOXIDE HCL 10 MG CAPSULE PO SCH ×2 (05:23→10:28)
[2022-03-27] MEDS: hydrOXYzine PAMOATE 25 MG CAPSULE (FP) PO SCH ×2 (05:25→10:28)
[2022-03-27] MEDS: BICTEGRAV/EMTRICIT/TENOFOV (BIKTARVY) 50-200-25 MG TABLET PO SCH (07:48)
[2022-03-27 09:10] VITALS: BP 115/72; PULSE 74; TEMP 98
[2022-03-27] MEDS: PRENATAL VITAMINS W/ FOLIC ACID TABLET (FP) PO SCH (10:28)
[2022-03-28] MEDS ORDERED: chlordiazePOXIDE HCL 10 MG CAPSULE PO SCH (05:00)
[2022-03-29] MEDS ORDERED: chlordiazePOXIDE HCL 10 MG CAPSULE PO ONE (05:00)
== END 2022-03-27 11:08 | disposition left against medical advice (07) | DRG 894 ==
LOC: YASAS 11:59 → Y3N 16:47
PROVIDERS: ADMIT Allergy & Immunology; ATTEND Surgery
PROC: HZ2ZZZZ Detoxification Services for Substance Abuse Treatment (ICD-10-PCS; principal; 2022-03-24)
DX: F10.230 Alcohol dependence with withdrawal, uncomplicated (principal); F14.20 Cocaine dependence, uncomplicated; F19.282 Other psychoactive substance dependence with psychoactive substance-induced sleep disorder; F12.20 Cannabis dependence, uncomplicated; F17.210 Nicotine dependence, cigarettes, uncomplicated; F19.24 Other psychoactive substance dependence with psychoactive substance-induced mood disorder; Z21 Asymptomatic human immunodeficiency virus [HIV] infection status; I10 Essential (primary) hypertension; J44.9 Chronic obstructive pulmonary disease, unspecified; K21.9 Gastro-esophageal reflux disease without esophagitis; R79.89 Other specified abnormal findings of blood chemistry; Z91.013 Allergy to seafood; Z87.09 Personal history of other diseases of the respiratory system
CPT/HCPCS: 36415; 80053; 85027; 86780; C9803-CS; U0003; U0005

== ENCOUNTER 2022-11-08 11:18 | Inpatient (IN) | payer OTHER ==
[2022-11-08 11:54] VITALS: BMI 21.7
[2022-11-08] MEDS ORDERED: DICYCLOMINE HCL 10 MG CAPSULE PO PRN (12:14)
[2022-11-08] MEDS ORDERED: MAG HYDROX/AL HYDROX/SIMETH 30 ML UNIT-DOSE CUP PO PRN (12:14)
[2022-11-08] MEDS ORDERED: POLYETHYLENE GLYCOL (HEALTHYLAX) 3350 17 GM PACKET PO PRN (12:14)
[2022-11-08] MEDS ORDERED: NICOTINE POLACRILEX 2 MG GUM BUC PRN (12:14)
[2022-11-08] MEDS ORDERED: MAGNESIUM HYDROX 2400MG/30ML ORAL SUSPENSION 30 ML CUP PO PRN (12:14)
[2022-11-08] MEDS ORDERED: IBUPROFEN 400 MG TABLET (FP) PO PRN (12:14)
[2022-11-08] MEDS ORDERED: NALOXONE HCL (KLOXXADO) 8 MG SPRAY NS PRN (12:14)
[2022-11-08] MEDS ORDERED: BISMUTH SUBSALICYLATE 262 MG/15 ML BTL PO PRN (12:14)
[2022-11-08] MEDS ORDERED: ONDANSETRON *ODT* 4 MG TABLET SL PRN (12:14)
[2022-11-08] MEDS ORDERED: NICOTINE 10 MG CARTRIDGE (INHALER) IH PRN (12:14)
[2022-11-08] MEDS ORDERED: LOPERAMIDE HCL 2 MG CAPSULE PO PRN (12:14)
[2022-11-08] MEDS ORDERED: ACETAMINOPHEN 325 MG TABLET (FP) PO PRN ×2 (12:14)
[2022-11-08] MEDS ORDERED: BENZOCAINE/MENTHOL (CHLORASEPTIC ) LOZENGE MM PRN (12:14)
[2022-11-08] MEDS ORDERED: IBUPROFEN 600 MG TABLET (FP) PO PRN (12:14)
[2022-11-08] MEDS ORDERED: ALBUTEROL SO4 HFA INHALER IH PRN (12:22)
[2022-11-08] MEDS ORDERED: chlordiazePOXIDE HCL 25 MG CAPSULE PO PRN ×2 (12:35→14:35)
[2022-11-08] MEDS: PRENATAL VITAMINS W/ FOLIC ACID TABLET (FP) PO SCH (13:39)
[2022-11-08 16:37] LABS: HEMATOCRIT 41.8 % (35.4-49); HEMOGLOBIN 13.8 GM/dL (11.7-16.9); MCH 29.8 pg (25.7-33.7); MCHC 32.9 g/dl (32.0-35.9); MEAN CELL VOLUME 90.6 fl (80-96); MEAN PLT VOLUME 8.8 fl (7.5-11.1); PLATELET COUNT 253 10^3/uL (134-434); RBC 4.61 M/mm3 (4.00-5.60); WHITE BLOOD COUNT 4.8 K/mm3 (4.0-10.0)
[2022-11-08 16:40] LABS: BLOOD UREA NITROGEN 16.5 mg/dL (7-18); CALCIUM 9.1 mg/dL (8.5-10.1)
[2022-11-08 16:41] LABS: ALBUMIN 3.8 g/dl (3.4-5.0)
[2022-11-08 16:44] LABS: CREATININE 1.3 mg/dL (0.55-1.3)
[2022-11-08 16:45] LABS: TOT PROT 7.9 g/dl (6.4-8.2)
[2022-11-08 16:48] LABS: BILIRUBIN,TOTAL 0.5 mg/dL (0.2-1)
[2022-11-08] MEDS: chlordiazePOXIDE HCL 25 MG CAPSULE PO SCH ×2 (16:52→22:09)
[2022-11-08] MEDS: THIAMINE HCL 100 MG TABLET (FP) PO SCH (22:08)
[2022-11-08] MEDS: METHOCARBAMOL 500 MG TABLET PO PRN (22:08)
[2022-11-08] MEDS: MELATONIN 5 MG TABLETS PO SCH (22:08)
[2022-11-09] MEDS: chlordiazePOXIDE HCL 25 MG CAPSULE PO SCH ×4 (05:06→22:03)
[2022-11-09] MEDS: METHOCARBAMOL 500 MG TABLET PO PRN ×2 (07:24→22:03)
[2022-11-09] MEDS ORDERED: chlordiazePOXIDE HCL 25 MG CAPSULE PO PRN (08:33)
[2022-11-09] MEDS: PRENATAL VITAMINS W/ FOLIC ACID TABLET (FP) PO SCH (10:02)
[2022-11-09 21:40] VITALS: TEMP 97.7
[2022-11-09] MEDS: MELATONIN 5 MG TABLETS PO SCH (22:01)
[2022-11-09] MEDS: THIAMINE HCL 100 MG TABLET (FP) PO SCH (22:03)
[2022-11-10] MEDS ORDERED: chlordiazePOXIDE HCL 25 MG CAPSULE PO SCH (05:00)
[2022-11-10 06:05] VITALS: BP 112/65; PULSE 66; RESP 16
[2022-11-11] MEDS ORDERED: chlordiazePOXIDE HCL 10 MG CAPSULE PO SCH (05:00)
[2022-11-12] MEDS ORDERED: chlordiazePOXIDE HCL 10 MG CAPSULE PO SCH (05:00)
[2022-11-13] MEDS ORDERED: chlordiazePOXIDE HCL 10 MG CAPSULE PO ONE (05:00)
== END 2022-11-10 09:19 | disposition home or self-care (01) | DRG 897 ==
LOC: YASAS 11:18 → Y3N 12:19
PROVIDERS: ADMIT Allergy & Immunology; ATTEND Family Medicine
PROC: HZ2ZZZZ Detoxification Services for Substance Abuse Treatment (ICD-10-PCS; principal; 2022-11-08)
DX: F10.230 Alcohol dependence with withdrawal, uncomplicated (principal); F14.20 Cocaine dependence, uncomplicated; F12.90 Cannabis use, unspecified, uncomplicated; Z21 Asymptomatic human immunodeficiency virus [HIV] infection status; I10 Essential (primary) hypertension; J45.909 Unspecified asthma, uncomplicated; R73.9 Hyperglycemia, unspecified; Z87.891 Personal history of nicotine dependence
CPT/HCPCS: 36415; 80053; 82962; 85027; 86780; 87811; C9803-CS; U0003; U0005

== ENCOUNTER 2022-12-24 08:34 | Inpatient (IN) | payer OTHER ==
[2022-12-24 08:52] VITALS: BMI 21.4
[2022-12-24] MEDS ORDERED: MAGNESIUM HYDROX 2400MG/30ML ORAL SUSPENSION 30 ML CUP PO PRN (09:27)
[2022-12-24] MEDS ORDERED: IBUPROFEN 400 MG TABLET (FP) PO PRN (09:27)
[2022-12-24] MEDS ORDERED: LOPERAMIDE HCL 2 MG CAPSULE PO PRN (09:27)
[2022-12-24] MEDS ORDERED: ONDANSETRON *ODT* 4 MG TABLET SL PRN (09:27)
[2022-12-24] MEDS ORDERED: BISMUTH SUBSALICYLATE 524 MG/30 ML PO PRN (09:27)
[2022-12-24] MEDS ORDERED: DICYCLOMINE HCL 10 MG CAPSULE PO PRN (09:27)
[2022-12-24] MEDS ORDERED: IBUPROFEN 600 MG TABLET (FP) PO PRN (09:27)
[2022-12-24] MEDS ORDERED: POLYETHYLENE GLYCOL (HEALTHYLAX) 3350 17 GM PACKET PO PRN (09:27)
[2022-12-24] MEDS ORDERED: MAG HYDROX/AL HYDROX/SIMETH 30 ML UNIT-DOSE CUP PO PRN (09:27)
[2022-12-24] MEDS ORDERED: chlordiazePOXIDE HCL 25 MG CAPSULE PO PRN (09:27)
[2022-12-24] MEDS ORDERED: ACETAMINOPHEN 325 MG TABLET (FP) PO PRN ×2 (09:27)
[2022-12-24] MEDS ORDERED: BENZOCAINE/MENTHOL (CHLORASEPTIC ) LOZENGE MM PRN (09:27)
[2022-12-24] MEDS ORDERED: NICOTINE 10 MG CARTRIDGE (INHALER) IH PRN (09:27)
[2022-12-24] MEDS ORDERED: ALBUTEROL SO4 HFA INHALER IH PRN (09:54)
[2022-12-24] MEDS: chlordiazePOXIDE HCL 25 MG CAPSULE PO SCH ×3 (11:14→22:40)
[2022-12-24] MEDS: PRENATAL VITAMINS W/ FOLIC ACID TABLET (FP) PO SCH (11:14)
[2022-12-24] MEDS: hydrOXYzine PAMOATE 25 MG CAPSULE (FP) PO PRN (22:39)
[2022-12-24] MEDS: THIAMINE HCL 100 MG TABLET (FP) PO SCH (22:39)
[2022-12-24] MEDS: METHOCARBAMOL 500 MG TABLET PO PRN (22:39)
[2022-12-24] MEDS: MELATONIN 5 MG TABLETS PO SCH (22:39)
[2022-12-25] MEDS: chlordiazePOXIDE HCL 25 MG CAPSULE PO SCH ×4 (05:29→22:48)
[2022-12-25 09:26] LABS: ALBUMIN 2.9 g/dl (3.4-5.0); CALCIUM 8.4 mg/dL (8.5-10.1)
[2022-12-25 09:29] LABS: CREATININE 1.1 mg/dL (0.55-1.3)
[2022-12-25 09:31] LABS: BILIRUBIN,TOTAL 0.6 mg/dL (0.2-1); TOT PROT 5.9 g/dl (6.4-8.2)
[2022-12-25 09:32] LABS: HEMATOCRIT 37.7 % (35.4-49); HEMOGLOBIN 12.7 GM/dL (11.7-16.9); MCH 30.5 pg (25.7-33.7); MCHC 33.5 g/dl (32.0-35.9); MEAN CELL VOLUME 90.9 fl (80-96); MEAN PLT VOLUME 9.4 fl (7.5-11.1); PLATELET COUNT 216 10^3/uL (134-434); RBC 4.15 M/mm3 (4.00-5.60); RDW 13.5 % (11.9-15.9); WHITE BLOOD COUNT 4.4 K/mm3 (4.0-10.0)
[2022-12-25] MEDS: PRENATAL VITAMINS W/ FOLIC ACID TABLET (FP) PO SCH (10:16)
[2022-12-25] MEDS: hydrOXYzine PAMOATE 25 MG CAPSULE (FP) PO PRN ×2 (10:16→22:48)
[2022-12-25 22:06] VITALS: RESP 18
[2022-12-25] MEDS: MELATONIN 5 MG TABLETS PO SCH (22:47)
[2022-12-25] MEDS: THIAMINE HCL 100 MG TABLET (FP) PO SCH (22:47)
[2022-12-25] MEDS: METHOCARBAMOL 500 MG TABLET PO PRN (22:48)
[2022-12-26] MEDS: chlordiazePOXIDE HCL 25 MG CAPSULE PO SCH ×2 (05:57→10:38)
[2022-12-26 09:11] VITALS: BP 143/98; PULSE 72; TEMP 98.2
[2022-12-26] MEDS: PRENATAL VITAMINS W/ FOLIC ACID TABLET (FP) PO SCH (10:37)
[2022-12-27] MEDS ORDERED: chlordiazePOXIDE HCL 10 MG CAPSULE PO PRN
[2022-12-27] MEDS ORDERED: chlordiazePOXIDE HCL 10 MG CAPSULE PO SCH (05:00)
[2022-12-28] MEDS ORDERED: chlordiazePOXIDE HCL 10 MG CAPSULE PO SCH (05:00)
[2022-12-29] MEDS ORDERED: chlordiazePOXIDE HCL 10 MG CAPSULE PO ONE (05:00)
== END 2022-12-26 09:31 | disposition left against medical advice (07) | DRG 894 ==
LOC: YASAS 08:34 → Y3N 10:17
PROVIDERS: ADMIT Allergy & Immunology; ATTEND Allergy & Immunology
PROC: HZ2ZZZZ Detoxification Services for Substance Abuse Treatment (ICD-10-PCS; principal; 2022-12-24)
DX: F10.230 Alcohol dependence with withdrawal, uncomplicated (principal); F14.20 Cocaine dependence, uncomplicated; E46 Unspecified protein-calorie malnutrition; F12.20 Cannabis dependence, uncomplicated; F32.A Depression, unspecified; J45.909 Unspecified asthma, uncomplicated; R63.4 Abnormal weight loss; Z68.21 Body mass index [BMI] 21.0-21.9, adult; Z91.013 Allergy to seafood
CPT/HCPCS: 36415; 80053; 85027; 86780; 87811; C9803-CS; U0003; U0005

== ENCOUNTER 2023-03-31 18:10 | Inpatient (IN) | payer OTHER ==
[2023-03-31 18:21] VITALS: BMI 21.8
[2023-03-31] MEDS ORDERED: MAG HYDROX/AL HYDROX/SIMETH 30 ML UNIT-DOSE CUP PO PRN (20:45)
[2023-03-31] MEDS ORDERED: BENZOCAINE/MENTHOL (CHLORASEPTIC ) LOZENGE MM PRN (20:45)
[2023-03-31] MEDS ORDERED: IBUPROFEN 400 MG TABLET (FP) PO PRN (20:45)
[2023-03-31] MEDS ORDERED: BENZONATATE 200 MG CAPSULE PO PRN (20:45)
[2023-03-31] MEDS ORDERED: MAGNESIUM HYDROX 2400MG/30ML ORAL SUSPENSION 30 ML CUP PO PRN (20:45)
[2023-03-31] MEDS ORDERED: POLYETHYLENE GLYCOL (HEALTHYLAX) 3350 17 GM PACKET PO PRN (20:45)
[2023-03-31] MEDS ORDERED: ONDANSETRON *ODT* 4 MG TABLET SL PRN (20:45)
[2023-03-31] MEDS ORDERED: NALOXONE HCL (KLOXXADO) 8 MG SPRAY NS PRN (20:45)
[2023-03-31] MEDS ORDERED: DICYCLOMINE HCL 10 MG CAPSULE PO PRN (20:45)
[2023-03-31] MEDS ORDERED: LOPERAMIDE HCL 2 MG CAPSULE PO PRN (20:45)
[2023-03-31] MEDS ORDERED: NALOXONE HCL 0.4 MG/ML VIAL IM PRN (20:45)
[2023-03-31] MEDS ORDERED: ACETAMINOPHEN 325 MG TABLET (FP) PO PRN (20:45)
[2023-03-31] MEDS ORDERED: guaiFENesin 600 MG TABLET.ER (FP) PO PRN (20:45)
[2023-03-31] MEDS ORDERED: chlordiazePOXIDE HCL 25 MG CAPSULE PO PRN (20:45)
[2023-03-31] MEDS ORDERED: BISMUTH SUBSALICYLATE 524 MG/30 ML PO PRN (20:45)
[2023-03-31] MEDS ORDERED: IBUPROFEN 600 MG TABLET (FP) PO PRN (20:45)
[2023-03-31] MEDS ORDERED: MELATONIN 5 MG TABLETS PO SCH (22:00)
[2023-03-31] MEDS: chlordiazePOXIDE HCL 25 MG CAPSULE PO SCH (22:01)
[2023-03-31] MEDS: THIAMINE HCL 100 MG TABLET (FP) PO SCH (22:01)
[2023-04-01] MEDS ORDERED: ALBUTEROL SO4 HFA INHALER IH PRN (03:31)
[2023-04-01] MEDS: chlordiazePOXIDE HCL 25 MG CAPSULE PO SCH ×4 (05:42→22:21)
[2023-04-01] MEDS: ALBUTEROL SO4 HFA INHALER IH PRN (05:46)
[2023-04-01] MEDS ORDERED: BICTEGRAV/EMTRICIT/TENOFOV (BIKTARVY) 50-200-25 MG TABLET PO SCH (10:30)
[2023-04-01] MEDS: PRENATAL VITAMINS W/ FOLIC ACID TABLET (FP) PO SCH (10:31)
[2023-04-01] MEDS: amLODIPine BESYLATE 10 MG TABLET (FP) PO SCH (10:31)
[2023-04-01] MEDS: METHOCARBAMOL 500 MG TABLET PO PRN ×2 (10:32→22:21)
[2023-04-01 10:52] LABS: POTASSIUM 4.1 mmol/L (3.5-5.1)
[2023-04-01 11:00] LABS: ALBUMIN 3.2 g/dl (3.4-5.0)
[2023-04-01 11:04] LABS: CREATININE 1.1 mg/dL (0.55-1.3)
[2023-04-01 11:05] LABS: BILIRUBIN,TOTAL 0.5 mg/dL (0.2-1); TOT PROT 6.3 g/dl (6.4-8.2)
[2023-04-01 11:14] LABS: HEMATOCRIT 38.8 % (35.4-49); HEMOGLOBIN 13.2 GM/dL (11.7-16.9); MCH 30.2 pg (25.7-33.7); MCHC 34.1 g/dl (32.0-35.9); MEAN CELL VOLUME 88.4 fl (80-96); MEAN PLT VOLUME 8.9 fl (7.5-11.1); PLATELET COUNT 259 10^3/uL (134-434); RBC 4.39 M/mm3 (4.00-5.60); RDW 14.5 % (11.9-15.9); WHITE BLOOD COUNT 3.6 K/mm3 (4.0-10.0)
[2023-04-01] MEDS: BICTEGRAV/EMTRICIT/TENOFOV (BIKTARVY) 50-200-25 MG TABLET PO SCH (13:50)
[2023-04-01] MEDS: THIAMINE HCL 100 MG TABLET (FP) PO SCH (22:21)
[2023-04-01] MEDS: MELATONIN 5 MG TABLETS PO SCH (22:21)
[2023-04-02] MEDS: ALBUTEROL SO4 HFA INHALER IH PRN (05:36)
[2023-04-02] MEDS: chlordiazePOXIDE HCL 25 MG CAPSULE PO SCH ×4 (05:36→22:50)
[2023-04-02] MEDS: BICTEGRAV/EMTRICIT/TENOFOV (BIKTARVY) 50-200-25 MG TABLET PO SCH (07:58)
[2023-04-02] MEDS: PRENATAL VITAMINS W/ FOLIC ACID TABLET (FP) PO SCH (10:28)
[2023-04-02] MEDS: amLODIPine BESYLATE 10 MG TABLET (FP) PO SCH (10:28)
[2023-04-02] MEDS: FLUOCINONIDE 0.05% CREAM (60 GM TUBE) TP SCH (22:47)
[2023-04-02] MEDS: MELATONIN 5 MG TABLETS PO SCH (22:49)
[2023-04-02] MEDS: METHOCARBAMOL 500 MG TABLET PO PRN (22:49)
[2023-04-02] MEDS: THIAMINE HCL 100 MG TABLET (FP) PO SCH (22:49)
[2023-04-03] MEDS ORDERED: chlordiazePOXIDE HCL 10 MG CAPSULE PO PRN
[2023-04-03] MEDS: chlordiazePOXIDE HCL 10 MG CAPSULE PO SCH ×4 (05:27→22:03)
[2023-04-03] MEDS: BICTEGRAV/EMTRICIT/TENOFOV (BIKTARVY) 50-200-25 MG TABLET PO SCH (07:26)
[2023-04-03] MEDS: PRENATAL VITAMINS W/ FOLIC ACID TABLET (FP) PO SCH (10:14)
[2023-04-03] MEDS: amLODIPine BESYLATE 10 MG TABLET (FP) PO SCH (10:14)
[2023-04-03] MEDS: FLUOCINONIDE 0.05% CREAM (60 GM TUBE) TP SCH ×2 (10:16→22:02)
[2023-04-03 21:25] VITALS: PULSE 67
[2023-04-03] MEDS: THIAMINE HCL 100 MG TABLET (FP) PO SCH (22:03)
[2023-04-03] MEDS: MELATONIN 5 MG TABLETS PO SCH (22:04)
[2023-04-04] MEDS ORDERED: chlordiazePOXIDE HCL 10 MG CAPSULE PO SCH (05:00)
[2023-04-04 06:04] VITALS: BP 104/70; RESP 16; TEMP 98
[2023-04-04] MEDS: BICTEGRAV/EMTRICIT/TENOFOV (BIKTARVY) 50-200-25 MG TABLET PO SCH (07:24)
[2023-04-05] MEDS ORDERED: chlordiazePOXIDE HCL 10 MG CAPSULE PO ONE (05:00)
== END 2023-04-04 09:00 | disposition home or self-care (01) | DRG 897 ==
LOC: YASAS 18:10 → Y3N 21:14
PROVIDERS: ADMIT Allergy & Immunology; ATTEND Surgery
PROC: HZ2ZZZZ Detoxification Services for Substance Abuse Treatment (ICD-10-PCS; principal; 2023-03-31)
DX: F10.230 Alcohol dependence with withdrawal, uncomplicated (principal); F14.20 Cocaine dependence, uncomplicated; F32.9 Major depressive disorder, single episode, unspecified; Z21 Asymptomatic human immunodeficiency virus [HIV] infection status; G47.00 Insomnia, unspecified; I10 Essential (primary) hypertension; J44.9 Chronic obstructive pulmonary disease, unspecified; J45.30 Mild persistent asthma, uncomplicated; K21.9 Gastro-esophageal reflux disease without esophagitis; Z87.891 Personal history of nicotine dependence
CPT/HCPCS: 36415; 80053; 85027; 86780; 87635; 87811

== ENCOUNTER 2023-04-28 12:38 | Inpatient (IN) | payer OTHER ==
[2023-04-28 13:23] VITALS: BMI 22.1
[2023-04-28] MEDS ORDERED: ONDANSETRON *ODT* 4 MG TABLET SL PRN (14:58)
[2023-04-28] MEDS ORDERED: BENZOCAINE/MENTHOL (CHLORASEPTIC ) LOZENGE MM PRN (14:58)
[2023-04-28] MEDS ORDERED: guaiFENesin 600 MG TABLET.ER (FP) PO PRN (14:58)
[2023-04-28] MEDS ORDERED: LOPERAMIDE HCL 2 MG CAPSULE PO PRN (14:58)
[2023-04-28] MEDS ORDERED: DICYCLOMINE HCL 10 MG CAPSULE PO PRN (14:58)
[2023-04-28] MEDS ORDERED: BENZONATATE 200 MG CAPSULE PO PRN (14:58)
[2023-04-28] MEDS ORDERED: chlordiazePOXIDE HCL 25 MG CAPSULE PO PRN (14:58)
[2023-04-28] MEDS ORDERED: MAG HYDROX/AL HYDROX/SIMETH 30 ML UNIT-DOSE CUP PO PRN (14:58)
[2023-04-28] MEDS ORDERED: ACETAMINOPHEN 325 MG TABLET (FP) PO PRN (14:58)
[2023-04-28] MEDS ORDERED: BISMUTH SUBSALICYLATE 262 MG/15 ML BTL PO PRN (14:58)
[2023-04-28] MEDS ORDERED: IBUPROFEN 400 MG TABLET (FP) PO PRN (14:58)
[2023-04-28] MEDS ORDERED: NALOXONE HCL (KLOXXADO) 8 MG SPRAY NS PRN (14:58)
[2023-04-28] MEDS ORDERED: POLYETHYLENE GLYCOL (HEALTHYLAX) 3350 17 GM PACKET PO PRN (14:58)
[2023-04-28] MEDS ORDERED: NALOXONE HCL 0.4 MG/ML VIAL IM PRN (14:58)
[2023-04-28] MEDS ORDERED: IBUPROFEN 600 MG TABLET (FP) PO PRN (14:58)
[2023-04-28] MEDS ORDERED: MAGNESIUM HYDROX 2400MG/30ML ORAL SUSPENSION 30 ML CUP PO PRN (14:58)
[2023-04-28] MEDS ORDERED: ALBUTEROL SO4 HFA INHALER IH PRN (15:01)
[2023-04-28] MEDS: chlordiazePOXIDE HCL 25 MG CAPSULE PO SCH ×2 (16:55→22:20)
[2023-04-28] MEDS ORDERED: MELATONIN 5 MG TABLETS PO SCH (22:00)
[2023-04-28] MEDS: THIAMINE HCL 100 MG TABLET (FP) PO SCH (22:20)
[2023-04-28] MEDS: NYSTATIN 100,000 UNIT/GM TOPICAL CREAM 15 GM TUBE TP SCH (22:22)
[2023-04-28] MEDS: hydrOXYzine PAMOATE 25 MG CAPSULE (FP) PO PRN (22:22)
[2023-04-29] MEDS: chlordiazePOXIDE HCL 25 MG CAPSULE PO SCH ×4 (05:54→22:42)
[2023-04-29] MEDS: BICTEGRAV/EMTRICIT/TENOFOV (BIKTARVY) 50-200-25 MG TABLET PO SCH (07:07)
[2023-04-29] MEDS: NYSTATIN 100,000 UNIT/GM TOPICAL CREAM 15 GM TUBE TP SCH ×2 (09:39→22:41)
[2023-04-29] MEDS: amLODIPine BESYLATE 10 MG TABLET (FP) PO SCH (09:39)
[2023-04-29] MEDS: hydrOXYzine PAMOATE 25 MG CAPSULE (FP) PO PRN (09:39)
[2023-04-29] MEDS: PRENATAL VITAMINS W/ FOLIC ACID TABLET (FP) PO SCH (09:40)
[2023-04-29 11:49] LABS: HEMATOCRIT 42.5 % (35.4-49); MCH 29.9 pg (25.7-33.7); MEAN CELL VOLUME 90.6 fl (80-96); MEAN PLT VOLUME 9.9 fl (7.5-11.1); PLATELET COUNT 267 10^3/uL (134-434); RBC 4.69 M/mm3 (4.00-5.60); RDW 14.5 % (11.9-15.9); WHITE BLOOD COUNT 5.3 K/mm3 (4.0-10.0)
[2023-04-29 11:55] LABS: POTASSIUM 3.8 mmol/L (3.5-5.1)
[2023-04-29 12:02] LABS: ALBUMIN 3.6 g/dl (3.4-5.0); BLOOD UREA NITROGEN 9.4 mg/dL (7-18)
[2023-04-29 12:03] LABS: BILIRUBIN,TOTAL 0.4 mg/dL (0.2-1)
[2023-04-29 12:04] LABS: CALCIUM 9.7 mg/dL (8.5-10.1); TOT PROT 7.5 g/dl (6.4-8.2)
[2023-04-29 12:05] LABS: CREATININE 1.2 mg/dL (0.55-1.3)
[2023-04-29] MEDS: QUEtiapine FUMARATE 200 MG TABLET PO SCH (22:41)
[2023-04-29] MEDS: MIRTAZAPINE 15 MG TABLET (FP) PO SCH (22:41)
[2023-04-29] MEDS: THIAMINE HCL 100 MG TABLET (FP) PO SCH (22:41)
[2023-04-30] MEDS: chlordiazePOXIDE HCL 25 MG CAPSULE PO SCH ×4 (05:35→23:09)
[2023-04-30] MEDS: BICTEGRAV/EMTRICIT/TENOFOV (BIKTARVY) 50-200-25 MG TABLET PO SCH (07:13)
[2023-04-30] MEDS: PRENATAL VITAMINS W/ FOLIC ACID TABLET (FP) PO SCH (10:12)
[2023-04-30] MEDS: amLODIPine BESYLATE 10 MG TABLET (FP) PO SCH (10:12)
[2023-04-30] MEDS: METHOCARBAMOL 500 MG TABLET PO PRN (10:12)
[2023-04-30] MEDS: hydrOXYzine PAMOATE 25 MG CAPSULE (FP) PO PRN ×2 (10:12→17:28)
[2023-04-30] MEDS: NYSTATIN 100,000 UNIT/GM TOPICAL CREAM 15 GM TUBE TP SCH ×2 (10:13→23:10)
[2023-04-30] MEDS: MIRTAZAPINE 15 MG TABLET (FP) PO SCH (23:10)
[2023-04-30] MEDS: QUEtiapine FUMARATE 200 MG TABLET PO SCH (23:10)
[2023-04-30] MEDS: THIAMINE HCL 100 MG TABLET (FP) PO SCH (23:10)
[2023-05-01] MEDS ORDERED: chlordiazePOXIDE HCL 10 MG CAPSULE PO PRN
[2023-05-01] MEDS: chlordiazePOXIDE HCL 10 MG CAPSULE PO SCH ×4 (05:30→23:47)
[2023-05-01] MEDS: BICTEGRAV/EMTRICIT/TENOFOV (BIKTARVY) 50-200-25 MG TABLET PO SCH (07:29)
[2023-05-01] MEDS: hydrOXYzine PAMOATE 25 MG CAPSULE (FP) PO PRN (10:01)
[2023-05-01] MEDS: PRENATAL VITAMINS W/ FOLIC ACID TABLET (FP) PO SCH (10:01)
[2023-05-01] MEDS: amLODIPine BESYLATE 10 MG TABLET (FP) PO SCH (10:01)
[2023-05-01] MEDS: NYSTATIN 100,000 UNIT/GM TOPICAL CREAM 15 GM TUBE TP SCH ×2 (10:03→23:47)
[2023-05-01] MEDS: QUEtiapine FUMARATE 200 MG TABLET PO SCH (23:48)
[2023-05-01] MEDS: MIRTAZAPINE 15 MG TABLET (FP) PO SCH (23:48)
[2023-05-01] MEDS: THIAMINE HCL 100 MG TABLET (FP) PO SCH (23:48)
[2023-05-02] MEDS ORDERED: chlordiazePOXIDE HCL 10 MG CAPSULE PO SCH (05:00)
[2023-05-02] MEDS: BICTEGRAV/EMTRICIT/TENOFOV (BIKTARVY) 50-200-25 MG TABLET PO SCH (07:07)
[2023-05-02 09:28] VITALS: TEMP 97.5
[2023-05-02] MEDS: METHOCARBAMOL 500 MG TABLET PO PRN (09:53)
[2023-05-02] MEDS: hydrOXYzine PAMOATE 25 MG CAPSULE (FP) PO PRN (09:53)
[2023-05-02] MEDS: NYSTATIN 100,000 UNIT/GM TOPICAL CREAM 15 GM TUBE TP SCH (09:53)
[2023-05-02] MEDS: amLODIPine BESYLATE 10 MG TABLET (FP) PO SCH (09:53)
[2023-05-02] MEDS: PRENATAL VITAMINS W/ FOLIC ACID TABLET (FP) PO SCH (09:54)
[2023-05-02] MEDS ORDERED: FLUOCINONIDE 0.05% CREAM (60 GM TUBE) TP SCH (10:30)
[2023-05-02 13:30] VITALS: BP 136/88; PULSE 71; RESP 18
[2023-05-03] MEDS ORDERED: chlordiazePOXIDE HCL 10 MG CAPSULE PO ONE (05:00)
== END 2023-05-02 15:18 | disposition home or self-care (01) | DRG 897 ==
LOC: YASAS 12:38 → Y6N 15:12
PROVIDERS: ADMIT Allergy & Immunology; ATTEND Surgery
PROC: HZ2ZZZZ Detoxification Services for Substance Abuse Treatment (ICD-10-PCS; principal; 2023-04-28)
DX: F10.230 Alcohol dependence with withdrawal, uncomplicated (principal); F19.282 Other psychoactive substance dependence with psychoactive substance-induced sleep disorder; F14.10 Cocaine abuse, uncomplicated; F19.24 Other psychoactive substance dependence with psychoactive substance-induced mood disorder; Z21 Asymptomatic human immunodeficiency virus [HIV] infection status; J44.9 Chronic obstructive pulmonary disease, unspecified; I10 Essential (primary) hypertension; K21.9 Gastro-esophageal reflux disease without esophagitis; B35.6 Tinea cruris; Z20.822 Contact with and (suspected) exposure to COVID-19; Z87.891 Personal history of nicotine dependence
CPT/HCPCS: 36415; 71046-TC-FY; 80053; 85027; 86780; 87635; 87811

== ENCOUNTER 2024-09-07 10:18 | Inpatient (IN) | payer OTHER ==
[2024-09-07 10:42] VITALS: BMI 21.7
[2024-09-07] MEDS ORDERED: ONDANSETRON *ODT* 4 MG TABLET SL PRN (10:50)
[2024-09-07] MEDS ORDERED: DICYCLOMINE HCL 10 MG CAPSULE PO PRN (10:50)
[2024-09-07] MEDS ORDERED: IBUPROFEN 400 MG TABLET (FP) PO PRN (10:50)
[2024-09-07] MEDS ORDERED: BISMUTH SUBSALICYLATE 524 MG/30 ML PO PRN (10:50)
[2024-09-07] MEDS ORDERED: POLYETHYLENE GLYCOL (HEALTHYLAX) 3350 17 GM PACKET PO PRN (10:50)
[2024-09-07] MEDS ORDERED: MAGNESIUM HYDROX 2400MG/30ML ORAL SUSPENSION 30 ML CUP PO PRN (10:50)
[2024-09-07] MEDS ORDERED: IBUPROFEN 600 MG TABLET (FP) PO PRN (10:50)
[2024-09-07] MEDS ORDERED: BENZOCAINE/MENTHOL (CHLORASEPTIC ) LOZENGE MM PRN (10:50)
[2024-09-07] MEDS ORDERED: ACETAMINOPHEN 325 MG TABLET (FP) PO PRN (10:50)
[2024-09-07] MEDS ORDERED: MAG HYDROX/AL HYDROX/SIMETH 30 ML UNIT-DOSE CUP PO PRN (10:50)
[2024-09-07] MEDS ORDERED: LOPERAMIDE HCL 2 MG CAPSULE PO PRN (10:50)
[2024-09-07] MEDS ORDERED: TIOTROPIUM BROMIDE 2.5 MCG (SPIRIVA) RESPIMAT INHALER IH SCH (14:00)
[2024-09-07] MEDS: BICTEGRAV/EMTRICIT/TENOFOV (BIKTARVY) 50-200-25 MG TABLET PO SCH (14:57)
[2024-09-07] MEDS: CLOPIDOGREL BISULFATE 75 MG TABLET (FP) PO SCH (14:57)
[2024-09-07] MEDS: ASPIRIN COATED 81 MG TABLET.EC PO SCH (14:57)
[2024-09-07] MEDS: ALBUTEROL SO4 HFA INHALER IH PRN (15:03)
[2024-09-07] MEDS ORDERED: chlordiazePOXIDE HCL 25 MG CAPSULE PO PRN (15:43)
[2024-09-07] MEDS: chlordiazePOXIDE HCL 25 MG CAPSULE PO SCH (16:55)
[2024-09-07] MEDS: TIOTROPIUM BROMIDE 2.5 MCG (SPIRIVA) RESPIMAT INHALER IH SCH (19:29)
[2024-09-07] MEDS: QUEtiapine FUMARATE 200 MG TABLET PO SCH (22:35)
[2024-09-07] MEDS: THIAMINE 100 MG TABLET PO SCH (22:35)
[2024-09-07] MEDS: MELATONIN 5 MG TABLETS PO SCH (22:36)
[2024-09-07] MEDS: BUDESONIDE/FORMETEROL FUMARATE 160/4.5 mcg INHALER IH SCH (22:36)
[2024-09-08] MEDS: chlordiazePOXIDE HCL 25 MG CAPSULE PO SCH (05:37)
[2024-09-08 08:25] LABS: HEMATOCRIT 37.4 % (35.4-49); HEMOGLOBIN 12.6 GM/dL (11.7-16.9); MCH 30.8 pg (25.7-33.7); MCHC 33.7 g/dl (32.0-35.9); MEAN CELL VOLUME 91.2 fl (80-96); MEAN PLT VOLUME 8.5 fl (7.5-11.1); PLATELET COUNT 248 10^3/uL (134-434); RDW 14.2 % (11.9-15.9)
[2024-09-08 08:26] LABS: POTASSIUM 3.5 mmol/L (3.5-5.1)
[2024-09-08 08:29] LABS: ALBUMIN 2.9 g/dl (3.4-5.0); BLOOD UREA NITROGEN 9.4 mg/dL (7-18); CALCIUM 8.9 mg/dL (8.5-10.1)
[2024-09-08 08:33] LABS: CREATININE 1.2 mg/dL (0.55-1.3)
[2024-09-08 08:34] LABS: BILIRUBIN,TOTAL 0.3 mg/dL (0.2-1); TOT PROT 5.7 g/dl (6.4-8.2)
[2024-09-08] MEDS ORDERED: TIOTROPIUM BROMIDE 2.5 MCG (SPIRIVA) RESPIMAT INHALER IH SCH (10:00)
[2024-09-08] MEDS: amLODIPine BESYLATE 10 MG TABLET (FP) PO SCH (10:19)
[2024-09-08] MEDS: QUEtiapine FUMARATE 100 MG TABLET (FP) PO SCH (10:20)
[2024-09-08] MEDS: PRENATAL VITAMINS W/ FOLIC ACID TABLET (FP) PO SCH (10:24)
[2024-09-09] MEDS ORDERED: chlordiazePOXIDE HCL 10 MG CAPSULE PO PRN
[2024-09-09] MEDS: chlordiazePOXIDE HCL 10 MG CAPSULE PO SCH (05:19)
[2024-09-09] MEDS: METHOCARBAMOL 500 MG TABLET PO PRN (22:29)
[2024-09-09] MEDS: BENZONATATE 200 MG CAPSULE PO PRN (23:42)
[2024-09-09] MEDS: guaiFENesin 600 MG TABLET.ER (FP) PO PRN (23:42)
[2024-09-10] MEDS: chlordiazePOXIDE HCL 10 MG CAPSULE PO SCH (05:28)
[2024-09-10] MEDS: hydrOXYzine PAMOATE 25 MG CAPSULE (FP) PO PRN (10:18)
[2024-09-10] MEDS: chlordiazePOXIDE HCL 10 MG CAPSULE PO PRN (22:31)
[2024-09-11] MEDS: chlordiazePOXIDE HCL 10 MG CAPSULE PO ONE (05:33)
[2024-09-11 06:39] VITALS: RESP 16
[2024-09-11 09:34] VITALS: BP 136/90; PULSE 87; TEMP 97.3
[2024-09-11] MEDS: NALOXONE (NYS OPIOID OVERDOSE PROGRAM) 4 MG/0.1 ML SPRAY NS SCH (09:39)
[2024-09-12] MEDS ORDERED: chlordiazePOXIDE 5 MG CAPSULE PO ONE (06:00)
== END 2024-09-11 09:15 | disposition home or self-care (01) | DRG 897 ==
LOC: YASAS 10:18 → Y3N 11:05 → Y6N 11:11
PROVIDERS: ADMIT Neuromusculoskeletal Medicine & OMM; ATTEND Surgery
PROC: HZ2ZZZZ Detoxification Services for Substance Abuse Treatment (ICD-10-PCS; principal; 2024-09-07)
DX: F10.230 Alcohol dependence with withdrawal, uncomplicated (principal); F14.20 Cocaine dependence, uncomplicated; F19.282 Other psychoactive substance dependence with psychoactive substance-induced sleep disorder; F12.20 Cannabis dependence, uncomplicated; F25.9 Schizoaffective disorder, unspecified; F19.24 Other psychoactive substance dependence with psychoactive substance-induced mood disorder; Z21 Asymptomatic human immunodeficiency virus [HIV] infection status; I25.10 Atherosclerotic heart disease of native coronary artery without angina pectoris; I10 Essential (primary) hypertension; J44.9 Chronic obstructive pulmonary disease, unspecified; J45.20 Mild intermittent asthma, uncomplicated; R01.1 Cardiac murmur, unspecified; Z95.5 Presence of coronary angioplasty implant and graft; Z87.891 Personal history of nicotine dependence
CPT/HCPCS: 36415; 80053; 80305; 85027; 86780; 93005; 93010